=== PATIENT | male | born 1945 | race Caucasian/White ===

== ENCOUNTER 2017-05-26 16:38 | Emergency (ER) | payer OTHER, MEDICARE ==
--- NOTE | 2017-05-26 18:00 | ER Document Report ---
ED Medical Screen (RME) - General Chief Complaint: Fall Stated Complaint: PAIN ALL OVER Time Seen by Provider: 05/26/17 17:42 Notes: This 72-year-old male patient was sent here from the [place] [facility] after he fell in the [place] clinic today. He moved to this area 1 week ago. He had a right total knee 8 years ago, a right total hip on 04/20/2016. He dislocated the hip on and had it revised on 05/25/2016. He has had intermittent pain ever since then. He went to the [place] clinic today to establish himself as a patient and to be evaluated for his ongoing pain and discomfort in the right lower extremity. He fell in the clinic while there so he was sent to the emergency room for further evaluation. - Related Data Allergies/Adverse Reactions: diazepam [From Valium] Allergy (Verified 05/26/17 16:42) peanut Allergy (Verified 05/26/17 16:42) Past Medical History - Social History Chew tobacco use (# tins/day): Yes - FORMER Frequency of alcohol use: Rare Drug Abuse: None Renal/ Medical History: Denies: Hx Peritoneal Dialysis
--- NOTE | 2017-05-26 18:23 | RADIOLOGY REPORT (SQ) ---
EXAM DESCRIPTION: HIP RIGHT AP/LATERAL COMPLETED DATE/TIME: 05/26/2017 6:12 pm REASON FOR STUDY: total hip w/ revision, pain, difficulty walking COMPARISON: None. NUMBER OF VIEWS: Two views. TECHNIQUE: AP pelvis and additional frog-leg view of the right hip. LIMITATIONS: None. FINDINGS: MINERALIZATION: Normal. RIGHT HIP: Total hip arthroplasty hardware appears in expected position. No fracture or dislocation. No worrisome bone lesions. LEFT HIP: Total hip arthroplasty hardware appears in expected position. No fracture or dislocation. No worrisome bone lesions. PUBIS AND ISCHIUM: No fracture. PELVIS: No fracture. SACRUM: No fracture or dislocation. No worrisome bone lesions. LOWER LUMBAR SPINE: No fracture or dislocation. No worrisome bone lesions. No significant disc disea se. SOFT TISSUES: Sacral nerve stimulator device. OTHER: No other significant finding. IMPRESSION: No acute findings. Total hip arthroplasty hardware appears in expected position. TECHNICAL DOCUMENTATION: JOB ID: [id number] [place]-72 2010 [employer]- All Rights Reserved
[2017-05-26] MEDS ORDERED: HYDROCODONE/ACETAMINOPHEN 5-325 MG (6 TAB/ER DISP) PO PRN (19:19)
[2017-05-26] MEDS ORDERED: MORPHINE SULFATE IR 15 MG TABLET PO ONE (19:19)
--- NOTE | 2017-05-26 19:22 | ER Document Report ---
ED General - General Chief Complaint: Fall Stated Complaint: PAIN ALL OVER Time Seen by Provider: 05/26/17 17:42 Notes: Patient is a 72-year-old male with a past medical history of chronic peripheral neuropathy, restless leg syndrome, chronic right lower extremity pain who presents after his right leg "gave out" while he was at the [place] [facility] earlier today. He was referred to the emergency department subsequent to this episode. He did not sustain any trauma during the episode is apparently a nurse at the facility called him and prevented him from hitting the ground directly. He denies any head, neck, hip or knee trauma. He reports that he recently moved the area 2 weeks ago and is having chronic pain in the right lower extremity that is been present for several years but been worse over the last several weeks as apparently he has run out of some of his chronic neuropathic pain medications. He denies anything is new or different about his symptoms today relative to the past. He denies any chest pain, shortness of breath or syncope during today's episode. He describes the pain as a constant, burning, shooting pain that is in the bilateral lower extremities but much worse on the right. He also reports that he is unable to sleep because he cannot keep his right leg from moving during the night. - Related Data Allergies/Adverse Reactions: diazepam [From Valium] Allergy (Verified 05/26/17 16:42) peanut Allergy (Verified 05/26/17 16:42) Past Medical History - General Information source: Patient - Social History Smoking Status: Former Smoker Chew tobacco use (# tins/day): Yes - FORMER Frequency of alcohol use: Rare Drug Abuse: None Lives with: Spouse/Significant other Family History: Reviewed & Not Pertinent Patient has suicidal ideation: No Patient has homicidal ideation: No - Past Medical History Cardiac Medical History: Reports: Hx Atrial Fibrillation, Hx Congestive Heart Failure Denies: Hx Heart Attack, Hx Hypercholesterolemia, Hx Hypertension Pulmonary Medical History: Reports: Hx Bronchitis, Hx Pneumonia Denies: Hx Asthma, Hx COPD, Hx Tuberculosis Neurological Medical History: Denies: Hx Migraine, Hx Seizures Endocrine Medical History: Denies: Hx Diabetes Mellitus Type 1, Hx Diabetes Mellitus Type 2 Renal/ Medical History: Denies: Hx End Stage Renal Disease, Hx Kidney Stones, Hx Peritoneal Dialysis GI Medical History: Reports: Hx Gastroesophageal Reflux Disease, Hx Hiatal Hernia, Hx Ulcer Musculoskeltal Medical History: Reports Hx Arthritis Psychiatric Medical History: Reports: Hx Depression Denies: Hx Attention Deficit Hyperactivity Disorder, Hx Bipolar Disorder, Hx Schizophrenia Past Surgical History: Reports: Hx Cholecystectomy, Hx Nose Surgery, Hx Orthopedic Surgery, Hx Tonsillectomy. Denies: Hx Abdominal Surgery Review of Systems - Review of Systems Notes: Constitutional: Negative for fever. HENT: Negative for sore throat. Eyes: Negative for visual changes. Cardiovascular: Negative for chest pain. Respiratory: Negative for shortness of breath. Gastrointestinal: Negative for abdominal pain, vomiting or diarrhea. Genitourinary: Negative for dysuria. Musculoskeletal: Positive for right lower extremity pain Skin: Negative for rash. Neurological: Negative for headaches, weakness or numbness. 10 point ROS negative except as marked above and in HPI. Physical Exam - Vital signs Vitals: Temp Pulse Resp BP Pulse Ox 98.0 F 73 18 144/75 H 100 05/26/17 16:57 05/26/17 16:57 05/26/17 16:57 05/26/17 16:57 05/26/17 16:57 Interpretation: Hypertensive Notes: PHYSICAL EXAMINATION: GENERAL: Appears uncomfortable but in no acute distress HEAD: Atraumatic, normocephalic. EYES: Pupils equal round and reactive to light, extraocular movements intact, sclera anicteric, conjunctiva are normal. ENT: nares patent, oropharynx clear without exudates. Moist mucous membranes. NECK: Normal range of motion, supple without lymphadenopathy LUNGS: Breath sounds clear to auscultation bilaterally and equal. No wheezes rales or rhonchi. HEART: Regular rate and rhythm without murmurs ABDOMEN: Soft, nontender, normoactive bowel sounds. No guarding, no rebound. No masses appreciated. EXTREMITIES: Normal range of motion, no pitting or edema. No cyanosis. No obvious deformity. Patient is having difficulty controlling the movement of his right lower extremity NEUROLOGICAL: No focal neurological deficits. Moves all extremities spontaneously and on command. PSYCH: Somewhat anxious SKIN: Warm, Dry, normal turgor, no rashes or lesions noted. Course - Re-evaluation Re-evalutation: 05/26/17 19:20 Patient presents with chronic right lower extremity pain with associated restless leg syndrome. Patient is thrashing around in the bed, clearly unable to control the movements of his right lower extremity. He appears to be in obvious discomfort. He is already on gabapentin at a maximal dose and has not resolved his symptoms. He recently moved to the area. [facility] out on him but he did not sustain any injury. An x-ray of the hip was taken for an unclear reason because patient is very clear that he never struck the hip or knee today and was apparently unremarkable. I have agreed with the patient that for a very short duration we will give him a small amount of the medications that he may take exclusively at night and he will need to follow-up with his newly established primary care physician here if he would like to continue with this medication if it is effective for him. I do not suspect any acute life-threatening pathology at this time critical occlusion of a peripheral artery, acute intra- abdominal pathology, abdominal aortic aneurysm, or CVA. At this time will discharge with return precautions and follow-up recommendations. Verbal discharge instructions given a the bedside and opportunity for questions given. Medication warnings reviewed. Patient is in agreement with this plan and has verbalized understanding of return precautions and the need for primary care follow-up in the next 24-72 hours. - Vital Signs Vital signs: Temp Pulse Resp BP Pulse Ox 98.2 F 84 16 147/61 H 97 05/26/17 19:39 05/26/17 19:39 05/26/17 19:39 05/26/17 19:39 05/26/17 19:39 - Diagnostic Test Radiology reviewed: Image reviewed, Reports reviewed Radiology results interpreted by me: 05/26/17 19:45 Right hip x-ray: No acute fracture or dislocation Discharge - Discharge Clinical Impression: Restless leg syndrome, Right leg pain Condition: Good Disposition: HOME, SELF-CARE Additional Instructions: You may take the Milam tablet your sent home with at night only to assist with pain and allow you to sleep secondary to restless leg syndrome. If this medication is effective you may discuss with her primary care doctor about continuation. Return for any concerning symptoms.
[2017-05-26 19:42] VITALS: BP 147/61
== END 2017-05-26 19:42 | disposition home or self-care (01) ==
LOC: ER 16:38
DX: G25.81 Restless legs syndrome (principal); M79.604 Pain in right leg; M79.1 Myalgia; G62.9 Polyneuropathy, unspecified
CPT/HCPCS: 99283

== ENCOUNTER 2018-01-03 16:13 | Emergency (ER) | payer OTHER, MEDICARE ==
--- NOTE | 2018-01-03 17:10 | ER Document Report ---
ED General - General Stated Complaint: SYNCOPE Time Seen by Provider: 01/03/18 17:02 Notes: Patient was brought in by EMS for having passed out in his yard today. He says that he was working on a structure at his house, using his car jennifer and other devices to the level of the structure. He was laying on the ground doing this work for 30-40 minutes. He had finished and got up and felt weak and sweaty and some shortness of breath and after about 6 or 7 minutes, he "collapsed". His was working in the yard and found him laying on the ground. It is extremely hot outside today. Patient denies any chest pains. Denies any nausea or vomiting. Did eat breakfast this morning of some eggs. Patient has history of atrial fibrillation, which has had ablation therapy and has been stable. He has no other significant past history except for neuropathy and restless leg syndrome. He has some pains in the left shoulder area where he fell on that shoulder about 3 times last year. That pain is not different or new today in any way. Patient denies having chest pains. Has not been sick in any way recently such as fever, chills, etc. No history of UTIs. Patient has nearly received a liter of saline administered by EMS on the way here. - Related Data Allergies/Adverse Reactions: diazepam [From Valium] Allergy (Verified 05/26/17 16:42) peanut Allergy (Verified 05/26/17 16:42) Past Medical History - Social History Smoking Status: Unknown if Ever Smoked Family History: Reviewed & Not Pertinent - Past Medical History Cardiac Medical History: Reports: Hx Atrial Fibrillation - Post ablation therapy., Hx Congestive Heart Failure - 10 years ago. Denies: Hx Heart Attack, Hx Hypercholesterolemia, Hx Hypertension Pulmonary Medical History: Reports: Hx Bronchitis, Hx Pneumonia Denies: Hx Asthma, Hx COPD, Hx Tuberculosis Neurological Medical History: Denies: Hx Migraine, Hx Seizures Endocrine Medical History: Denies: Hx Diabetes Mellitus Type 1, Hx Diabetes Mellitus Type 2 Renal/ Medical History: Denies: Hx End Stage Renal Disease, Hx Kidney Stones GI Medical History: Reports: Hx Gastroesophageal Reflux Disease, Hx Hiatal Hernia, Hx Ulcer Musculoskeletal Medical History: Reports Hx Arthritis Psychiatric Medical History: Reports: Hx Depression Denies: Hx Attention Deficit Hyperactivity Disorder, Hx Bipolar Disorder, Hx Schizophrenia Past Surgical History: Reports: Hx Cholecystectomy, Hx Nose Surgery, Hx Orthopedic Surgery, Hx Tonsillectomy. Denies: Hx Abdominal Surgery Review of Systems - Review of Systems Notes: REVIEW OF SYSTEMS: CONSTITUTIONAL : Denies fever. But did have heavy sweats, although it is very hot outside today. EENT: Denies eye, ear, nose or mouth or throat pain or other symptoms. CARDIOVASCULAR: Denies chest pain. RESPIRATORY: Denies cough, chest congestion, but did feel some mild shortness of breath. GASTROINTESTINAL: Denies abdominal pain or nausea, vomiting, or diarrhea. GENITOURINARY: Denies difficulty or painful urinating, urinary frequency, blood in urine. MUSCULOSKELETAL: Denies back or neck pain. Denies joint pain or swelling. SKIN: Denies rash or skin lesions. NEUROLOGICAL: Denies altered mental status. Denies headache. Denies sensory loss or motor deficits. ALL OTHER SYSTEMS REVIEWED AND NEGATIVE. Physical Exam - Vital signs Vitals: Temp Pulse Resp BP Pulse Ox 97.7 F 85 20 116/58 L 97 01/03/18 18:42 01/03/18 18:42 01/03/18 18:42 01/03/18 18:42 01/03/18 18:42 Interpretation: Normal - Notes Notes: PHYSICAL EXAMINATION: GENERAL: Well-appearing, in no acute distress. Vital signs are all essentially normal. Very restless shaking of his legs. HEAD: Atraumatic, normocephalic. EYES: Pupils equal round and reactive to light, extraocular movements intact. ENT: oropharynx clear without exudates. Moist mucous membranes. NECK: Normal range of motion, supple. LUNGS: Breath sounds clear and equal bilaterally. HEART: Regular rate and rhythm without murmurs. ABDOMEN: Soft, nontender. No guarding or rebound. No masses. Mid epigastric abdominal wall hernia which is soft and easily reducible. This hernia is in the scar area from the patient's having had a pericardial window for congestive heart failure 10 years ago. BACK: No tenderness throughout entire back. EXTREMITIES: Normal range of motion without pain. No significant edema. Negative Homans bilaterally. NEUROLOGICAL: Normal speech, normal gait. Normal sensory, motor, and reflex exams. Awake, alert, and oriented x3. Cranial nerves normal. PSYCH: Normal mood, normal affect. Anxious. SKIN: Warm, dry, no rashes. Course - Re-evaluation Re-evalutation: 01/03/18 20:14 Labs are all essentially normal. Patient says he feels fine. Denies any chest pain. No shortness of breath. Very anxious restless legs. I think patient became overheated this afternoon and that is the underlying problem. He looks well and his vital signs were all essentially normal so he can go home. - Vital Signs Vital signs: Temp Pulse Resp BP Pulse Ox 97.7 F 85 20 116/58 L 97 01/03/18 18:42 01/03/18 18:42 01/03/18 18:42 01/03/18 18:42 01/03/18 18:42 - Laboratory Result Diagrams: 01/03/18 17:32 01/03/18 17:32 Laboratory results interpreted by me: 01/03/18 01/03/18 01/03/18 17:32 17:32 17:32 RBC 3.77 L Hgb 12.6 L Hct 36.7 L MCV 98 H MCH 33.5 H Plt Count 143 L Chloride 109 H Carbon Dioxide 21 L BUN 23 H ALT 73 H CK-MB (CK-2) 5.89 H Total Protein 6.1 L Albumin 3.2 L - EKG Interpretation by Md EKG shows normal: Sinus rhythm Rate: Normal Rhythm: NSR [place]/QRS: RBBB Discharge - Discharge Clinical Impression: Syncope and collapse Condition: Stable Disposition: HOME, SELF-CARE Additional Instructions: SYNCOPAL EPISODE: Syncope (fainting or near-fainting) can occur from many different health problems. Or it can be a simple fainting spell requiring no treatment. It is safe for you to go home, but further evaluation will likely be necessary. Your work-up may include tests for internal bleeding, heart disease, medication problems, or near-strokes. Tests are not always required, however, depending on the nature of your problem. The warning signs of an impending faint include: dizziness, lightheadedness , nausea, hot flashes, tingling, and weakness. If this happens, lay down and put your feet up, then wait until all of these symptoms have passed before standing up again. If these episodes become recurrent, or if you develop chest pain, heart palpitations, mental confusion, blurred vision, or headache, then you should call the physician, or go to the emergency room. NORMAL EXAM AND WORKUP: At this time, your examination and workup show no significant abnormality. No significant abnormal physical findings were noted. All laboratory, EKG, and imaging (x-ray, CT scans, ultrasound) studies that were ordered show no significant abnormality. Although your examination and all studies that were ordered showed no significant abnormal finding, there are no examinations and no studies that are 100% accurate. There is always the possibility that some abnormality could exist and not be detected with physical examination or within the limits and capabilities of laboratory and other studies. You should return or follow up as you were instructed on your visit today for further evaluation if your symptoms do not resolve. FOLLOW-UP CARE: If you have been referred to a physician for follow-up care, call the physician s office for an appointment as you were instructed or within the next two days. If you experience worsening or a significant change in your symptoms, notify the physician immediately or return to the Emergency Department at any time for re-evaluation.
[2018-01-03 17:40] LABS: ABSOLUTE BASOPHILS # (AUTO) 0.1 10^3/uL (0.0-0.2); ABSOLUTE EOSINOPHILS # (AUTO) 0.2 10^3/uL (0.0-0.6); ABSOLUTE LYMPHOCYTES (AUTO) 1.3 10^3/uL (0.5-4.7); ABSOLUTE MONOCYTES (AUTO) 0.8 10^3/uL (0.1-1.4); ABSOLUTE NEUT (AUTO) 5.5 10^3/uL (1.7-8.2); BASOPHILS % (AUTO) 0.9 % (0-2); EOSINOPHILS % (AUTO) 2.3 % (0-6); HEMATOCRIT 36.7 % (37.9-51.0); HEMOGLOBIN 12.6 g/dL (13.5-17.0); LYMPHOCYTES % (AUTO) 17.1 % (13-45); MEAN CORPUSCULAR HEMOGLOBIN 33.5 pg (27.0-33.4); MEAN CORPUSCULAR HGB CONC 34.4 g/dL (32.0-36.0); MEAN CORPUSCULAR VOLUME 98 fl (80-97); MONOCYTES % (AUTO) 9.9 % (3-13); PLATELET COUNT 143 10^3/uL (150-450); RED BLOOD COUNT 3.77 10^6/uL (4.35-5.55); RED CELL DISTRIBUTION WIDTH 13.6 % (11.5-14.0); SEGMENTED NEUTROPHILS % (AUTO) 69.8 % (42-78); TOTAL CELLS COUNTED % (AUTO) 100 %; WHITE BLOOD COUNT 7.8 10^3/uL (4.0-10.5)
[2018-01-03 18:08] LABS: CREATINE KINASE MB 5.89 ng/mL (<4.55); TROPONIN I 0.013 ng/mL
[2018-01-03 19:14] LABS: APPEARANCE,URINE CLEAR; BILIRUBIN,URINE NEGATIVE (NEGATIVE); COLOR,URINE YELLOW; GLUCOSE, URINE NEGATIVE (NEGATIVE); KETONES,URINE NEGATIVE (NEGATIVE); LEUKOCYTE ESTERASE,URINE NEGATIVE (NEGATIVE); NITRITE,URINE NEGATIVE (NEGATIVE); PROTEIN,URINE NEGATIVE (NEGATIVE); URINE SPECIFIC GRAVITY 1.023; UROBILINOGEN,URINE NEGATIVE mg/dL (<2.0)
[2018-01-03 19:16] LABS: ALANINE AMINOTRANSFERASE 73 U/L (21-72); ALBUMIN 3.2 g/dL (3.5-5.0); ALKALINE PHOSPHATASE 119 U/L (38-126); ANION GAP 11 (5-19); ASPARTATE AMINO TRANSFERASE 54 U/L (17-59); BILIRUBIN,DIRECT 0.3 mg/dL (0.0-0.4); BILIRUBIN,TOTAL 0.4 mg/dL (0.2-1.3); BLOOD UREA NITROGEN 23 mg/dL (7-20); CALCIUM 9.1 mg/dL (8.4-10.2); CARBON DIOXIDE 21 mmol/L (22-30); CHLORIDE 109 mmol/L (98-107); GLUCOSE 88 mg/dL (75-110); POTASSIUM 4.1 mmol/L (3.6-5.0); SODIUM 140.8 mmol/L (137-145); TOTAL PROTEIN 6.1 g/dL (6.3-8.2)
[2018-01-03 20:02] VITALS: BP 134/68
--- NOTE | 2018-01-03 22:31 | EKG REPORT ---
SEVERITY:- ABNORMAL ECG - SINUS RHYTHM RBBB AND LAFB : Confirmed by: Tiff Morales MD 03-Jan-2018 22:31:04
== END 2018-01-03 20:17 | disposition home or self-care (01) ==
LOC: ER 16:13
DX: R55 Syncope and collapse (principal); R53.1 Weakness; R61 Generalized hyperhidrosis; R06.02 Shortness of breath; M25.512 Pain in left shoulder; K43.9 Ventral hernia without obstruction or gangrene; I48.91 Unspecified atrial fibrillation
CPT/HCPCS: 36415; 80053; 81001; 82553; 84484; 85025; 93005; 93010; 99284

== ENCOUNTER 2018-01-30 17:08 | Emergency (ER) | payer OTHER, MEDICARE ==
--- NOTE | 2018-01-30 18:43 | ER Document Report ---
ED Extremity Problem, Upper - General Chief Complaint: Shoulder Pain Stated Complaint: LEFT SHOULDER PAIN Time Seen by Provider: 01/30/18 17:32 Mode of Arrival: Ambulatory Information source: Patient Notes: 72-year-old male presents to ED for complaint of left shoulder pain for 6-8 months. He states he fell off the bed 3 or 4 times about 6 or 8 months ago. He states he went to the local hospital they x-rayed his shoulder but they said there was nothing wrong. He states he went to the [facility] and they sent him to physical therapy. He states that when he was discharged from physical therapy they told him he needed an orthopedic surgeon not physical therapy. He states he has been trying to get a orthopedic surgeon from [facility] for several months and they do not need to call him back anymore. He states that pain is so bad he cannot even lift up his arm all the way. He states his somebody holds the weight of his arm he can lift it up but he cannot actually pick it up himself. Patient is alert and oriented respirations regular and unlabored speaking in full sentences and is able to walk with a cane. TRAVEL OUTSIDE OF THE [place] IN LAST 30 DAYS: No - HPI Patient complains to provider of: Left, Shoulder Onset: Other - 6-8 months Recent injury: No Quality of pain: Sharp, Stabbing, Throbbing Severity of pain: Moderate Pain Level: 3 Context: Fall - 6-8 months ago Associated symptoms: None Exacerbated by: Movement, Exertion Relieved by: Rest, Positioning Similar symptoms previously: Yes Recently seen / treated by doctor: No - Related Data Allergies/Adverse Reactions: diazepam [From Valium] Allergy (Verified 01/30/18 17:12) peanut Allergy (Verified 01/30/18 17:12) Past Medical History - General Information source: Patient - Social History Smoking Status: Former Smoker Cigarette use (# per day): No Chew tobacco use (# tins/day): No Smoking Education Provided: No Frequency of alcohol use: Occasional Drug Abuse: None Occupation: Retired Lives with: Family Family History: Reviewed & Not Pertinent Patient has suicidal ideation: No Patient has homicidal ideation: No - Past Medical History Cardiac Medical History: Reports: Hx Atrial Fibrillation - Post ablation therapy., Hx Congestive Heart Failure - 10 years ago. Pulmonary Medical History: Reports: Hx Bronchitis, Hx Pneumonia, Hx Sleep Apnea EENT Medical History: Reports: None Neurological Medical History: Reports: Hx Migraine Endocrine Medical History: Reports: None Renal/ Medical History: Reports: None Malignancy Medical History: Reports Hx Prostate Cancer, Reports Hx Skin Cancer GI Medical History: Reports: Hx Gastritis, Hx Gastroesophageal Reflux Disease, Hx Hiatal Hernia, Hx Irritable Bowel, Hx Ulcer, Hx Endoscopy Musculoskeletal Medical History: Reports Hx Arthritis, Reports Hx Musculoskeletal Deformity, Reports Hx Musculoskeletal Trauma Skin Medical History: Reports None Psychiatric Medical History: Reports: Hx Depression Traumatic Medical History: Reports: Hx Fractures - Nose Infectious Medical History: Reports: None Past Surgical History: Reports: Hx Adenoidectomy, Hx Cholecystectomy, Hx Nose Surgery, Hx Orthopedic Surgery - Right knee, right and left hip replacement, shoulder surgery, Hx Rectal Surgery - Hemorrhoid surgery, Hx Tonsillectomy - Immunizations Immunizations up to date: Yes Review of Systems - Review of Systems Constitutional: No symptoms reported EENT: No symptoms reported Cardiovascular: No symptoms reported Respiratory: No symptoms reported Gastrointestinal: No symptoms reported Genitourinary: No symptoms reported Male Genitourinary: No symptoms reported Musculoskeletal: Joint pain, Muscle pain. denies: Joint swelling Skin: No symptoms reported Hematologic/Lymphatic: No symptoms reported Neurological/Psychological: No symptoms reported -: Yes All other systems reviewed and negative Physical Exam - Vital signs Vitals: Temp Pulse Resp BP Pulse Ox 97.8 F 79 18 117/64 96 01/30/18 17:25 01/30/18 17:25 01/30/18 17:25 01/30/18 17:25 01/30/18 17:25 Interpretation: Normal - General General appearance: Appears well, Alert - HEENT Head: Normocephalic, Atraumatic Eyes: Normal Pupils: PERRL - Respiratory Respiratory status: No respiratory distress Chest status: Nontender Breath sounds: Normal Chest palpation: Normal - Cardiovascular Rhythm: Regular Heart sounds: Normal auscultation Murmur: No - Abdominal Inspection: Normal Distension: No distension Bowel sounds: Normal Tenderness: Nontender Organomegaly: No organomegaly - Back Back: Normal, Nontender - Extremities General upper extremity: Normal color, Normal temperature General lower extremity: Normal inspection, Nontender, Normal color, Normal ROM , Normal temperature, Normal weight bearing. No: Tomas's sign Shoulder: Tender, Limited ROM. No: Abrasion, Deformity, Dislocation, Ecchymosis , Instability, Laceration - Neurological Neuro grossly intact: Yes Cognition: Normal Orientation: AAOx4 [place] Coma Scale Eye Opening: Spontaneous [place] Coma Scale Verbal: Oriented [place] Coma Scale Motor: Obeys Commands [place] Coma Scale Total: 15 Speech: Normal Motor strength normal: LUE, RUE, LLE, RLE Sensory: Normal - Psychological Associated symptoms: Normal affect, Normal mood - Skin Skin Temperature: Warm Skin Moisture: Dry Skin Color: Normal Course - Re-evaluation Re-evalutation: 01/30/18 21:46 Kendra x-ray with patient and written report of x-ray given the patient. Patient was discharged home with instructions to follow-up with orthopedics by telephone tomorrow to schedule appointment. [facility] Patient was discharged home with prescription for ibuprofen for his tendinitis. - Vital Signs Vital signs: Temp Pulse Resp BP Pulse Ox 97.9 F 81 16 129/71 H 100 01/30/18 19:33 01/30/18 19:33 01/30/18 19:33 01/30/18 19:33 01/30/18 19:33 - Diagnostic Test Radiology reviewed: Image reviewed, Reports reviewed Discharge - Discharge Clinical Impression: Tendonitis of shoulder, left Condition: Stable Disposition: HOME, SELF-CARE Additional Instructions: Tendonitis The pain you are having is due to tendonitis -- an inflammation around a muscle tendon. It's usually caused by overuse or repeated minor injuries ( strains) of the tendon. Tendonitis can take two to four weeks to heal. In fact, you may actually worsen for a few days despite treatment. Tendonitis is usually treated with rest, local heat, and antiinflammatory medication. Sometimes cold packs are recommended if the tendonitis has just started. If the pain is severe or prolonged, cortisone injections may be required. Call the doctor if pain or swelling become severe, if new discoloration or redness appears, or if numbness is noted. Anti-Inflammatory Medication You have received a prescription for an antiinflammatory agent. This is an excellent, safe drug for pain control. In addition, it has potent antiinflammatory effects which are beneficial, especially in the treatment of injuries, arthritis, or tendonitis. It's best to take this medicine with food. Persons with ulcer disease or allergy to aspirin should notify their physician of this before taking this drug. Take the medication exactly as prescribed. Don't take additional doses unless instructed to do so by your doctor. If you develop wheezing, shortness of breath, hives, faintness, stomach pain, vomiting, or dark black stools, return for re-evaluation at once. Exercise Program for the Shoulder Since the shoulder moves in so many directions, the joint attachment is weak. Muscles provide most of the stability to the shoulder. You must exercise your shoulder to prevent painful instability or stiffening. PASSIVE - These may be begun within a few days of the injury. While standing, lean forward, allowing the arm to hang down towards the floor. Move the arm in small circles while slowly twisting your chest towards and away from the hanging arm. Do this for one minute. ACTIVE - These may be performed when the doctor gives permission. Begin with the arms at the sides. Raise the arms forward (shoulder's width apart) until they reach shoulder level. Then slowly swing both arms back until they are aiming straight out away from each other. Then bring them forward again, and finally, lower them to your sides. Repeat 20 to 30 times. As you improve, put weights in your hands for the exercise. Start with one pound, and work up to 10 pounds. Never use more than is comfortable. Athletes may work up to 30 pounds. FOLLOW-UP CARE: If you have been referred to a physician for follow-up care, call the physician s office for an appointment as you were instructed or within the next two days. If you experience worsening or a significant change in your symptoms, notify the physician immediately or return to the Emergency Department at any time for re-evaluation. Prescriptions: Ibuprofen 600 mg PO Q6HP PRN #20 tablet PRN Reason: Referrals: ELIZABETH SKINNER MD [ACTIVE STAFF] - Follow up as needed
--- NOTE | 2018-01-30 19:05 | RADIOLOGY REPORT (SQ) ---
EXAM DESCRIPTION: SHOULDER LEFT 2 OR MORE VIEWS COMPLETED DATE/TIME: 01/30/2018 5:43 pm REASON FOR STUDY: fall pain COMPARISON: None. NUMBER OF VIEWS: Three views. TECHNIQUE: Internal rotation, external rotation, and Y view images acquired of the left shoulder. LIMITATIONS: None. FINDINGS: MINERALIZATION: Normal. BONES: No acute fracture or dislocation. No worrisome bone lesions. JOINTS: No dislocation. VISUALIZED LUNGS AND RIBS: No pneumothorax. No rib fracture. SOFT TISSUES: No radiopaque foreign body. OTHER: No other significant finding. IMPRESSION: NEGATIVE STUDY OF THE LEFT SHOULDER. NO RADIOGRAPHIC EVIDENCE OF ACUTE INJURY. TECHNICAL DOCUMENTATION: JOB ID: [id number] [employer]- All Rights Reserved Reading location - IP/workstation name: [email or web address]
[2018-01-30 19:35] VITALS: BP 129/71
== END 2018-01-30 19:33 | disposition home or self-care (01) ==
LOC: ER 17:08
DX: M75.92 Shoulder lesion, unspecified, left shoulder (principal); M25.512 Pain in left shoulder; W06.XXXA Fall from bed, initial encounter; Z87.891 Personal history of nicotine dependence
CPT/HCPCS: 99283

== ENCOUNTER → 2018-04-05 | Outpatient (CLI) | payer MEDICARE ==
--- NOTE | 2018-04-05 08:56 | RADIOLOGY REPORT (SQ) ---
EXAM DESCRIPTION: CT CHEST WITH COMPLETED DATE/TIME: 04/05/2018 8:43 am REASON FOR STUDY: CHEST PAIN (R07.9), CIRRHOSIS OF LIVER (K74.60) K74.60 UNSPECIFIED CIRRHOSIS OF L IVER R07.9 CHEST PAIN, UNSPECIFIED COMPARISON: None. TECHNIQUE: CT scan of the chest performed using helical scanning technique with dynamic intravenous contrast injection. Images reviewed with lung, soft tissue and bone windows. Reconstructed coronal and sagittal MPR and MIP images reviewed. All images stored on PACS. All CT scanners at this facility use dose modulation, iterative reconstruction, and/or weight based d osing when appropriate to reduce radiation dose to as low as reasonably achievable (ALARA). [facility]: Dose Right [facility]: CareDose [facility]: Dose Right [facility]: Teradose 4D [facility]: [employer] CONTRAST TYPE AND DOSE: 72 mL Isovue 370- low osmolar. RENAL FUNCTION: BUN 16, creatinine 0.86 RADIATION DOSE: . LIMITATIONS: None. FINDINGS: LUNGS AND PLEURA: Mild bilateral emphysematous changes. No consolidation. No effusions. No suspicious pulmonary nodules. There is some scarring in the right middle lobe anteriorly. HILAR AND MEDIASTINAL STRUCTURES: No identified masses or abnormal nodes. HEART AND VASCULAR STRUCTURES: No aneurysm or dissection. No central pulmonary emboli. No pericardi al effusion. HARDWARE: None in the chest. UPPER ABDOMEN: No significant findings. Limited exam. THYROID AND OTHER SOFT TISSUES: No masses. No adenopathy. BONES: No significant finding. OTHER: No other significant finding. IMPRESSION: Mild bilateral emphysematous changes. No acute findings in the chest. TECHNICAL DOCUMENTATION: JOB ID: [id number] Quality ID # [id number]: Final reports with documentation of one or more dose reduction techniques (e.g., Au tomated exposure control, adjustment of the mA and/or kV according to patient size, use of iterative reconstruction technique) 2010 [employer]- All Rights Reserved Reading location - IP/workstation name: [email or web address]
--- NOTE | 2018-04-05 08:59 | RADIOLOGY REPORT (SQ) ---
EXAM DESCRIPTION: CT ABD/PELVIS WITH IV ORAL COMPLETED DATE/TIME: 04/05/2018 8:43 am REASON FOR STUDY: CIRRHOSIS OF LIVER (K74.60) K74.60 UNSPECIFIED CIRRHOSIS OF LIVER R07.9 CHEST PA IN, UNSPECIFIED COMPARISON: None. TECHNIQUE: CT scan of the abdomen and pelvis performed using helical scanning technique with dynamic intravenous contrast injection. No oral contrast. Images reviewed with lung, soft tissue, and bone windows. Reconstructed coronal and sagittal MPR images reviewed. Delayed images for evaluation of the urinary system also acquired. All images stored on PACS. All CT scanners at this facility use dose modulation, iterative reconstruction, and/or weight based d osing when appropriate to reduce radiation dose to as low as reasonably achievable (ALARA). [facility]: Dose Right [facility]: CareDose [facility]: Dose Right [facility]: Teradose 4D [facility]: [employer] CONTRAST TYPE AND DOSE: contrast/concentration: Isovue 350.00 mg/ml; Total Contrast Delivered: 100.0 ml; Total Saline Delivered: 72.0 ml RENAL FUNCTION: BUN 16, creatinine 0.86 RADIATION DOSE: CT Rad equipment meets quality standard of care and radiation dose reduction techniq ues were employed. CTDIvol: 22.8 - 29.6 mGy. DLP: 4298 mGy-cm.. LIMITATIONS: None. FINDINGS: LOWER CHEST: No significant findings. No nodules or infiltrates. LIVER: Normal size. No masses. No dilated ducts. SPLEEN: Normal size. No focal lesions. PANCREAS: No masses. No significant calcifications. No adjacent inflammation or peripancreatic fluid collections. Pancreatic duct not dilated. GALLBLADDER: Surgically absent. ADRENAL GLANDS: No significant masses or asymmetry. RIGHT KIDNEY AND URETER: No solid masses. No significant calcifications. No hydronephrosis or hyd roureter. LEFT KIDNEY AND URETER: No solid masses. No significant calcifications. No hydronephrosis or hydr oureter. AORTA AND VESSELS: No aneurysm. No dissection. Renal arteries, SMA, celiac without stenosis. RETROPERITONEUM: No retroperitoneal adenopathy, hemorrhage or masses. BOWEL AND PERITONEAL CAVITY: There are infrequent diverticuli. No acute findings. APPENDIX: Not visualized. PELVIS: No mass. No free fluid. Normal bladder. ABDOMINAL WALL: No masses. No hernias. BONES: No significant or acute findings. OTHER: No other significant finding. IMPRESSION: NO SIGNIFICANT OR ACUTE FINDING IN THE ABDOMEN OR PELVIS ON CT SCAN WITH IV CONTRAST. TECHNICAL DOCUMENTATION: JOB ID: [id number] Quality ID # [id number]: Final reports with documentation of one or more dose reduction techniques (e.g., Au tomated exposure control, adjustment of the mA and/or kV according to patient size, use of iterative reconstruction technique) 2010 [employer]- All Rights Reserved Reading location - IP/workstation name: [email or web address]
== END ==
LOC: RAD 07:58
PROVIDERS: ATTEND Internal Medicine
DX: K74.60 Unspecified cirrhosis of liver (principal); R07.9 Chest pain, unspecified
CPT/HCPCS: 71260; 74177

== ENCOUNTER 2018-05-07 11:28 | Emergency (ER) | payer MEDICARE ==
[2018-05-07] MEDS ORDERED: LIDOCAINE 5% (700 MG) TRANSDERMAL ADH..PATCH TP ONE (12:52)
[2018-05-07] MEDS ORDERED: TRAMADOL HCL 50 MG TABLET PO ONE (12:52)
[2018-05-07] MEDS ORDERED: HYDROCODONE/ACETAMINOPHEN 5-325 MG TABLET PO ONE (12:55)
--- NOTE | 2018-05-07 13:43 | RADIOLOGY REPORT (SQ) ---
EXAM DESCRIPTION: FEMUR RIGHT COMPLETED DATE/TIME: 05/07/2018 1:29 pm REASON FOR STUDY: pain COMPARISON: None. NUMBER OF VIEWS: Two views. TECHNIQUE: Two radiographic images acquired of the right femur to include hip and knee in at least o ne projection. LIMITATIONS: None. FINDINGS: MINERALIZATION: Normal. BONES: No acute fracture. No worrisome bone lesions. Total knee replacement. Total hip replacement . SOFT TISSUES: No obvious swelling or foreign body. OTHER: No other significant finding. IMPRESSION: Orthopedic hardware. No suspicious findings. TECHNICAL DOCUMENTATION: JOB ID: [id number] [employer]- All Rights Reserved Reading location - IP/workstation name: [email or web address]
[2018-05-07 13:53] LABS: ANION GAP 12 (5-19); BLOOD UREA NITROGEN 18 mg/dL (7-20); CALCIUM 9.6 mg/dL (8.4-10.2); CARBON DIOXIDE 24 mmol/L (22-30); CHLORIDE 106 mmol/L (98-107); CREATINE KINASE 128 U/L (55-170); GLUCOSE 105 mg/dL (75-110); POTASSIUM 4.2 mmol/L (3.6-5.0); SODIUM 142.1 mmol/L (137-145)
--- NOTE | 2018-05-07 14:15 | ER Document Report ---
ED General - General Chief Complaint: Leg Pain Stated Complaint: LEG PAIN Time Seen by Provider: 05/07/18 12:45 TRAVEL OUTSIDE OF THE [place] IN LAST 30 DAYS: No - HPI Patient complains to provider of: Movement of the leg tremor Notes: Patient coming in for exacerbation of his restless leg. Patient states while at buddhism she developed the pain in his right thigh states whenever this happens his restless leg exacerbates. Patient upon my initial evaluation is noted movement of his legs and there however upon introducing myself patient starts to have a tremor rocking motion [id number] of his leg. Patient states that this is different than his restless leg before and that his restless leg mostly has his leg moving up and down in a north-south fashion which the patient is able to demonstrate however states that today is different with the leg moving in a East less fashion with the patient again also is able to demonstrate. Tremor seems to be waxing and waning is that when the patient is able to talk to his the tremor will dissipate. Patient otherwise denies any recent falls states has a history of hip and knee replacement. Patient states he has been compliant with his Neurontin and his medication for restless leg which cannot remember at this time. Patient otherwise looks to be in no obvious distress patient states this occurs whenever he has pain in his leg - Related Data Allergies/Adverse Reactions: diazepam [From Valium] Allergy (Verified 01/30/18 17:12) peanut Allergy (Verified 01/30/18 17:12) Past Medical History - Social History Smoking Status: Never Smoker Frequency of alcohol use: Rare Drug Abuse: None Family History: Reviewed & Not Pertinent Patient has suicidal ideation: No Patient has homicidal ideation: No - Past Medical History Cardiac Medical History: Reports: Hx Atrial Fibrillation - Post ablation therapy., Hx Congestive Heart Failure - 10 years ago. Denies: Hx Heart Attack, Hx Hypercholesterolemia, Hx Hypertension Pulmonary Medical History: Reports: Hx Bronchitis, Hx Pneumonia, Hx Sleep Apnea Denies: Hx Asthma, Hx COPD, Hx Tuberculosis Neurological Medical History: Reports: Hx Migraine. Denies: Hx Seizures Endocrine Medical History: Denies: Hx Diabetes Mellitus Type 1, Hx Diabetes Mellitus Type 2 Renal/ Medical History: Denies: Hx End Stage Renal Disease, Hx Kidney Stones, Hx Peritoneal Dialysis Malignancy Medical History: Reports Hx Prostate Cancer, Reports Hx Skin Cancer GI Medical History: Reports: Hx Gastritis, Hx Gastroesophageal Reflux Disease, Hx Hiatal Hernia, Hx Irritable Bowel, Hx Ulcer, Hx Endoscopy Musculoskeletal Medical History: Reports Hx Arthritis, Reports Hx Musculoskeletal Deformity, Reports Hx Musculoskeletal Trauma Psychiatric Medical History: Reports: Hx Depression Denies: Hx Attention Deficit Hyperactivity Disorder, Hx Bipolar Disorder, Hx Schizophrenia Traumatic Medical History: Reports: Hx Fractures - Nose Past Surgical History: Reports: Hx Adenoidectomy, Hx Cholecystectomy, Hx Nose Surgery, Hx Orthopedic Surgery - Right knee, right and left hip replacement, shoulder surgery, Hx Rectal Surgery - Hemorrhoid surgery, Hx Tonsillectomy. Denies: Hx Abdominal Surgery - Immunizations Immunizations up to date: Yes Review of Systems - Review of Systems Constitutional: No symptoms reported EENT: No symptoms reported Cardiovascular: No symptoms reported Respiratory: No symptoms reported Gastrointestinal: No symptoms reported Genitourinary: No symptoms reported Male Genitourinary: No symptoms reported Musculoskeletal: Other - Pain in leg tremor Skin: No symptoms reported Hematologic/Lymphatic: No symptoms reported Neurological/Psychological: No symptoms reported Physical Exam - Vital signs Vitals: Temp Pulse Resp BP Pulse Ox 97.7 F 67 18 141/69 H 98 05/07/18 11:36 05/07/18 11:36 05/07/18 11:36 05/07/18 11:36 05/07/18 11:36 Interpretation: Normal - General General appearance: Appears well, Alert - HEENT Head: Normocephalic, Atraumatic Eyes: Normal Pupils: PERRL - Respiratory Respiratory status: No respiratory distress Chest status: Nontender Breath sounds: Normal Chest palpation: Normal - Cardiovascular Rhythm: Regular Heart sounds: Normal auscultation Murmur: No - Abdominal Inspection: Normal Distension: No distension Bowel sounds: Normal Tenderness: Nontender Organomegaly: No organomegaly - Back Back: Normal, Nontender - Extremities General upper extremity: Normal inspection, Nontender, Normal color, Normal ROM , Normal temperature General lower extremity: Normal inspection, Nontender, Normal color, Normal ROM , Normal temperature, Other - Patient with a oscillating tremor and the right leg strength is present and there is no weakness tremor seems to dissipate whenever the patient is otherwise occupied with other activities such as talking to myself or with the patient is seen while waiting at their initial examination with no tremors leg however upon my presence the tremor again arises - Neurological Neuro grossly intact: Yes Cognition: Normal Orientation: AAOx4 [place] Coma Scale Eye Opening: Spontaneous [place] Coma Scale Verbal: Oriented [place] Coma Scale Motor: Obeys Commands [place] Coma Scale Total: 15 Speech: Normal Motor strength normal: LUE, RUE, LLE, RLE Sensory: Normal - Psychological Associated symptoms: Normal affect, Normal mood - Skin Skin Temperature: Warm Skin Moisture: Dry Skin Color: Normal Course - Re-evaluation Re-evalutation: 05/07/18 19:16 Waxing or waning of a tremor the patient states is chronic no acute emergent pathology seen at this time patient's tremor had dissipated upon discharge and sitting in the chair and pit while getting his vital signs taken x-rays are negative for any acute pathology lab work is also negative will discharge patient home follow-up primary care physician recommended continuation of his home medications - Vital Signs Vital signs: Temp Pulse Resp BP Pulse Ox 97.6 F 61 18 146/68 H 99 05/07/18 14:32 05/07/18 14:32 05/07/18 14:32 05/07/18 14:32 05/07/18 14:32 - Laboratory Result Diagrams: 05/07/18 13:15 Discharge - Discharge Clinical Impression: History of restless legs syndrome, Right thigh pain Condition: Good Disposition: HOME, SELF-CARE Instructions: Leg Pain Nonspecific ([facility]) Additional Instructions: Follow-up with your primary care physician in the next 24-48 hours return to ER symptoms worsen continue your home medications as prescribed. Referrals: SHABNAM RICO MD [Primary Care Provider] - Follow up as needed
[2018-05-07 14:34] VITALS: BP 146/68
== END 2018-05-07 14:37 | disposition home or self-care (01) ==
LOC: ER 11:28
DX: M79.651 Pain in right thigh (principal); M79.604 Pain in right leg; G25.81 Restless legs syndrome
CPT/HCPCS: 99283; 36415; 82550; 83735; 80048; 73552; A9270

== ENCOUNTER 2018-06-02 16:36 | Emergency (ER) | payer MEDICARE ==
[2018-06-02] MEDS ORDERED: ACETAMINOPHEN 325 MG TABLET PO ONE (19:15)
[2018-06-02] MEDS ORDERED: HYDROCODONE/ACETAMINOPHEN 5-325 MG TABLET PO ONE (19:15)
--- NOTE | 2018-06-02 19:19 | ER Document Report ---
ED General - General TRAVEL OUTSIDE OF THE [place] IN LAST 30 DAYS: No - General Chief Complaint: Knee Pain Stated Complaint: RIGHT KNEE PAIN Time Seen by Provider: 06/02/18 19:06 Notes: Patient is a 73-year-old male who presents to the emergency department with a chief complaint of right knee pain. He states his pain started 2 days ago. He describes his pain as a throbbing pain. Most of the pain is on the lateral aspect of his knee. He vigorously moves his knee up and down and he feels a "popping" sensation. He has a history of a right knee replacement 12 years ago and had a left hip replacement 2 years ago. He has been taking ibuprofen for his pain, but has not taken any today. He states nothing makes his pain better. Walking around and even just sitting still aggravates the pain. He also has history of restless leg, in which he takes Mirapex for his restless leg control. He also has neuropathy, and takes gabapentin. He denies any fevers, chills, body aches. (GARY SCHNEIDER) - Related Data Allergies/Adverse Reactions: diazepam [From Valium] Allergy (Verified 01/30/18 17:12) peanut Allergy (Verified 01/30/18 17:12) Past Medical History - Social History Smoking Status: Former Smoker Family History: Reviewed & Not Pertinent Patient has suicidal ideation: No Patient has homicidal ideation: No - Past Medical History Cardiac Medical History: Reports: Hx Atrial Fibrillation - Post ablation therapy., Hx Congestive Heart Failure - 10 years ago. Denies: Hx Heart Attack, Hx Hypercholesterolemia, Hx Hypertension Pulmonary Medical History: Reports: Hx Bronchitis, Hx Pneumonia, Hx Sleep Apnea Denies: Hx Asthma, Hx COPD, Hx Tuberculosis Neurological Medical History: Reports: Hx Migraine. Denies: Hx Seizures Endocrine Medical History: Denies: Hx Diabetes Mellitus Type 1, Hx Diabetes Mellitus Type 2 Renal/ Medical History: Denies: Hx End Stage Renal Disease, Hx Kidney Stones, Hx Peritoneal Dialysis Malignancy Medical History: Reports Hx Prostate Cancer, Reports Hx Skin Cancer GI Medical History: Reports: Hx Gastritis, Hx Gastroesophageal Reflux Disease, Hx Hiatal Hernia, Hx Irritable Bowel, Hx Ulcer, Hx Endoscopy Musculoskeletal Medical History: Reports Hx Arthritis, Reports Hx Musculoskeletal Deformity, Reports Hx Musculoskeletal Trauma Psychiatric Medical History: Reports: Hx Depression Denies: Hx Attention Deficit Hyperactivity Disorder, Hx Bipolar Disorder, Hx Schizophrenia Traumatic Medical History: Reports: Hx Fractures - Nose Past Surgical History: Reports: Hx Adenoidectomy, Hx Cholecystectomy, Hx Genitourinary Surgery - bladder stimulater placement, Hx Nose Surgery, Hx Orthopedic Surgery - Right knee, right and left hip replacement, shoulder corral rgery, Hx Rectal Surgery - Hemorrhoid surgery, Hx Tonsillectomy. Denies: Hx Abdominal Surgery - Immunizations Immunizations up to date: Yes Review of Systems - Review of Systems Notes: REVIEW OF SYSTEMS: CONSTITUTIONAL : Denies recent illness. Denies recent unintentional weight loss. Denies fever, chills, or sweats. EENT: Denies eye, ear, throat, or mouth pain, discharge, or symptoms. Denies nasal or sinus congestion. CARDIOVASCULAR: Denies chest pain. RESPIRATORY: Denies shortness of breath, cough, congestion, difficulty breathing, or wheezing. GASTROINTESTINAL: Denies nausea, vomiting, and diarrhea. Denies abdominal pain. Denies constipation. GENITOURINARY: Denies difficulty urinating, burning, blood in urine, urgency or frequency. MUSCULOSKELETAL: See HPI SKIN: Denies rash, itchiness, or lesions HEMATOLOGIC : Denies easy bruising or bleeding. LYMPHATIC: Denies swollen, painful, enlarged glands. NEUROLOGICAL: Denies no numbness or tingling denies weakness. Denies headache. Denies altered mental status. Denies alteration in speech. PSYCHIATRIC: Denies stress, anxiety, alteration in sleep patterns, or depression. All other systems reviewed and negative. (GARY SCHNEIDER) Physical Exam - Vital signs Vitals: Temp Pulse Resp BP Pulse Ox 97.8 F 85 18 126/74 H 96 06/02/18 16:51 06/02/18 16:51 06/02/18 16:51 06/02/18 16:51 06/02/18 16:51 - Notes Notes: PHYSICAL EXAMINATION: GENERAL: Appears well, healthy, well-nourished, no acute distress. HEAD: Normocephalic, atraumatic. EYES: PERRL, conjunctiva normal, all extraocular movements intact, sclera nonicteric ENT: Moist mucous membranes. NECK: Supple, no noticeable swelling, redness, rash. Normal range of motion. LUNGS: Equal breath sounds bilaterally and clear to auscultation. No wheezes rales or rhonchi. CARDIOVASCULAR: S1-S2, regular rate, regular rhythm. Radial pulses 2+, normal. ABDOMEN: Normoactive bowel sounds. Soft, nontender, no guarding, no rebound tenderness, and no masses palpated. EXTREMITIES: Normal strength and range of motion, no pitting or edema. No cyanosis. Very mild crepitus noted to the lateral aspect of right knee. Scar noted to right knee from right knee replacement. NEUROLOGICAL: Moves all extremities upon command. Strength 5/5 in all extremities. PSYCH: Normal mood, normal affect. SKIN: Warm, dry. No rash, lesions, ulcerations noted. Normal skin turgor. (GARY SCHNEIDER) Course - Re-evaluation Re-evalutation: 06/02/18 19:19 The patient will be sent for an x-ray of his right knee to check his hardware. He is able to bend his knee, therefore I do not suspect he has a septic joint. His knee is not inflamed, red, hot, and he denies fevers. He will be given acetaminophen and a dose of [place] here in the emergency department. 06/02/18 20:00 Patient's x-ray is normal. No acute findings per the radiologist. I have discussed these findings with the patient. He states that he still in pain even after receiving a dose of [place] and Tylenol. I told the patient that he needs to be evaluated by an orthopedic surgeon since he has history of a right knee replacement 12 years ago. I have also told him that I do not want to prescribe him any oral narcotics because he is already a high fall risk and oral narcotics will increase his fall risk and there is a possibility that he may have a worse outcome with narcotics since he already has chronic health conditions. He nhi balized understanding. He will be placed on naproxen and follow-up with orthopedics on Tuesday. His is also at bedside and verbalizes understanding. Verbal discharge instructions were given to the patient. They verbalized understanding. They are stable for discharge. Documentation was completed using voice recognition software, therefore there may be some unintended grammatical errors. (GARY SCHNEIDER) 06/03/18 23:35 I was personally available for consultation during this patient's worse. I did not personally evaluate the patient. (KENNETH FARRELL) - Vital Signs Vital signs: Temp Pulse Resp BP Pulse Ox 98.0 F 80 20 158/70 H 96 06/02/18 20:48 06/02/18 20:48 06/02/18 20:48 06/02/18 20:48 06/02/18 20:48 Discharge - Discharge Clinical Impression: Knee pain, right Qualifiers: Chronicity: acute Qualified Code(s): M25.561 - Pain in right knee Condition: Stable Disposition: HOME, SELF-CARE Additional Instructions: You were seen today for right knee pain. Your x-ray is normal. Please follow- up with orthopedics tomorrow in regards to your knee pain. They will be able to further evaluate your knee. May take naproxen 500 mg twice a day and Tylenol 1000 mg every 6 hours as needed for the pain. If you are unable to bend your knee, develop a fever, or have any symptoms that are worrisome to you, please return to the emergency department. Prescriptions: RX: Naproxen 500 mg PO BID PRN #20 tablet PRN Reason: Referrals: ELIZABETH SKINNER MD [ACTIVE STAFF] - Follow up tomorrow
--- NOTE | 2018-06-02 19:39 | RADIOLOGY REPORT (SQ) ---
EXAM DESCRIPTION: KNEE RIGHT 4 VIEWS COMPLETED DATE/TIME: 06/02/2018 7:30 pm REASON FOR STUDY: right knee pain; hx of replacement COMPARISON: None. NUMBER OF VIEWS: Four views. TECHNIQUE: AP, lateral, and both oblique radiographic images acquired of the right knee. LIMITATIONS: None. FINDINGS: MINERALIZATION: Normal. BONES: Total knee arthroplasty in good position. No acute fracture. No JOINT: No joint effusion. SOFT TISSUES: No soft tissue swelling. No radio-opaque foreign body. OTHER: No other significant finding. IMPRESSION: NEGATIVE STUDY OF THE RIGHT KNEE. NO RADIOGRAPHIC EVIDENCE OF ACUTE INJURY. TECHNICAL DOCUMENTATION: JOB ID: [id number] [employer]- All Rights Reserved Reading location - IP/workstation name: [email or web address]
[2018-06-02] MEDS ORDERED: LIDOCAINE 5% (700 MG) TRANSDERMAL ADH..PATCH TP ONE (20:37)
[2018-06-02] MEDS ORDERED: NAPROXEN 250 MG TABLET PO ONE (20:38)
[2018-06-02 20:53] VITALS: BP 158/70
== END 2018-06-02 20:55 | disposition home or self-care (01) ==
LOC: ER 16:36
DX: M25.561 Pain in right knee (principal); Z96.651 Presence of right artificial knee joint; Z96.642 Presence of left artificial hip joint; G62.9 Polyneuropathy, unspecified; G25.81 Restless legs syndrome; Z79.899 Other long term (current) drug therapy; Z88.8 Allergy status to other drugs, medicaments and biological substances; Z91.010 Allergy to peanuts; Z87.891 Personal history of nicotine dependence
CPT/HCPCS: 99283; 73564; A9270 ×3

== ENCOUNTER 2018-06-04 11:01 | Emergency (ER) | payer MEDICARE ==
[2018-06-04] MEDS ORDERED: PRAMIPEXOLE DI-HCL 0.25 MG TABLET PO ONE (11:24)
[2018-06-04] MEDS ORDERED: OXYCODONE-ACETAMINOPHEN 5-325 MG TABLET PO ONE (11:26)
[2018-06-04] MEDS ORDERED: GABAPENTIN 300 MG CAPSULE PO ONE (11:26)
--- NOTE | 2018-06-04 11:27 | ER Document Report ---
ED Medical Screen (RME) - General Chief Complaint: Leg Pain Stated Complaint: RIGHT LEG PAIN/FALL Time Seen by Provider: 06/04/18 11:13 TRAVEL OUTSIDE OF THE [place] IN LAST 30 DAYS: No - Related Data Allergies/Adverse Reactions: diazepam [From Valium] Allergy (Verified 06/04/18 11:02) peanut Allergy (Verified 06/04/18 11:02) Past Medical History - Past Medical History Cardiac Medical History: Reports: Hx Atrial Fibrillation - Post ablation therapy., Hx Congestive Heart Failure - 10 years ago. Denies: Hx Heart Attack, Hx Hypercholesterolemia, Hx Hypertension Pulmonary Medical History: Reports: Hx Bronchitis, Hx Pneumonia, Hx Sleep Apnea Denies: Hx Asthma, Hx COPD, Hx Tuberculosis Neurological Medical History: Reports: Hx Migraine. Denies: Hx Seizures Endocrine Medical History: Denies: Hx Diabetes Mellitus Type 1, Hx Diabetes Mellitus Type 2 Renal/ Medical History: Denies: Hx End Stage Renal Disease, Hx Kidney Stones, Hx Peritoneal Dialysis Malignancy Medical History: Reports Hx Prostate Cancer, Reports Hx Skin Cancer GI Medical History: Reports: Hx Gastritis, Hx Gastroesophageal Reflux Disease, Hx Hiatal Hernia, Hx Irritable Bowel, Hx Ulcer, Hx Endoscopy Musculoskeltal Medical History: Reports Hx Arthritis, Reports Hx Musculoskeletal Deformity, Reports Hx Musculoskeletal Trauma Psychiatric Medical History: Reports: Hx Depression Denies: Hx Attention Deficit Hyperactivity Disorder, Hx Bipolar Disorder, Hx Schizophrenia Traumatic Medical History: Reports: Hx Fractures - Nose Past Surgical History: Reports: Hx Adenoidectomy, Hx Cholecystectomy, Hx Genitourinary Surgery - bladder stimulater placement, Hx Nose Surgery, Hx Orthopedic Surgery - Right knee, right and left hip replacement, shoulder surgery, Hx Rectal Surgery - Hemorrhoid surgery, Hx Tonsillectomy. Denies: Hx Abdominal Surgery - Immunizations Immunizations up to date: Yes Physical Exam - Vital signs Vitals: Temp Pulse Resp BP Pulse Ox 97.4 F 81 18 192/86 H 94 06/04/18 11:05 06/04/18 11:05 06/04/18 11:05 06/04/18 11:05 06/04/18 11:05 Course - Re-evaluation Re-evalutation: 06/04/18 11:26 73-year-old man with knee replacement as well as a hip replacement along the right side he has had chronic pain along the side now has had 3 falls since last night associated with pain and instability in the right knee. Says that he slept on the ground last night because of the pain and inability to walk normally. I have seen and evaluated this patient in rapid medical screening exam fashion. I have initiated a evaluation and workup, this patient will require further investigation evaluation and disposition determination by secondary provider. - Vital Signs Vital signs: Temp Pulse Resp BP Pulse Ox 97.4 F 81 18 192/86 H 94 06/04/18 11:05 06/04/18 11:05 06/04/18 11:05 06/04/18 11:05 06/04/18 11:05
[2018-06-04 12:09] LABS: ANION GAP 7 (5-19); BLOOD UREA NITROGEN 21 mg/dL (7-20); CALCIUM 9.8 mg/dL (8.4-10.2); CARBON DIOXIDE 23 mmol/L (22-30); CHLORIDE 109 mmol/L (98-107); CREATINE KINASE 772 U/L (55-170); GLUCOSE 105 mg/dL (75-110); POTASSIUM 4.5 mmol/L (3.6-5.0); SODIUM 139.4 mmol/L (137-145)
--- NOTE | 2018-06-04 12:19 | RADIOLOGY REPORT (SQ) ---
EXAM DESCRIPTION: CT LUMBAR SPINE WITHOUT COMPLETED DATE/TIME: 06/04/2018 12:03 pm REASON FOR STUDY: Right leg weakness COMPARISON: None. TECHNIQUE: Axial images acquired through the lumbar spine without intravenous contrast. Images revi ewed with lung, soft tissue and bone windows. Reconstructed coronal and sagittal MPR images reviewed . All images stored on PACS. All CT scanners at this facility use dose modulation, iterative reconstruction, and/or weight based d osing when appropriate to reduce radiation dose to as low as reasonably achievable (ALARA). [facility]: Dose Right [facility]: CareDose [facility]: Dose Right [facility]: Teradose 4D [facility]: [employer] RADIATION DOSE: 1754 mGy cm LIMITATIONS: None. FINDINGS: SEGMENTATION: Normal. No transitional anatomy. ALIGNMENT: Normal. VERTEBRAL BODIES: No fractures. No dislocation. No acute findings. DISCS: Severe multilevel disc degenerative disease. PEDICLES, TRANSVERSE PROCESSES: No fractures. No dislocation. No acute findings. FACETS, POSTERIOR ELEMENTS: Severe facet hypertrophy. No fractures. No dislocation. HARDWARE: None in the spine. VISUALIZED RIBS: No fractures. SOFT TISSUES: No significant or acute finding in adjacent soft tissues. OTHER: No other significant finding. IMPRESSION: No fracture or static subluxation of the lumbar spine. Multilevel disc and facet degene rative disease. Lumbar disc and neural foraminal pathology may be further evaluated by MRI if [place] by localizing signs and symptoms. TECHNICAL DOCUMENTATION: JOB ID: [id number] Quality ID # [id number]: Final reports with documentation of one or more dose reduction techniques (e.g., Au tomated exposure control, adjustment of the mA and/or kV according to patient size, use of iterative reconstruction technique) 2010 [employer]- All Rights Reserved Reading location - IP/workstation name: [email or web address]
--- NOTE | 2018-06-04 12:22 | RADIOLOGY REPORT (SQ) ---
EXAM DESCRIPTION: KNEE RIGHT 2 VIEWS COMPLETED DATE/TIME: 06/04/2018 12:10 pm REASON FOR STUDY: knee pain COMPARISON: 06/02/2018 NUMBER OF VIEWS: Two views. TECHNIQUE: AP and lateral radiographic images acquired of the right knee. LIMITATIONS: None. FINDINGS: MINERALIZATION: Normal. BONES: No acute fracture or dislocation. No worrisome bone lesions. JOINT: No effusion. Status post total knee arthroplasty. SOFT TISSUES: No soft tissue swelling. No radio-opaque foreign body. OTHER: No other significant finding. IMPRESSION: NEGATIVE STUDY OF THE RIGHT KNEE. NO RADIOGRAPHIC EVIDENCE OF ACUTE INJURY. TECHNICAL DOCUMENTATION: JOB ID: [id number] [employer]- All Rights Reserved Reading location - IP/workstation name: [email or web address]
[2018-06-04] MEDS ORDERED: METHYLPREDNISOLONE ACETATE INJ 80 MG/1 ML VIAL IM ONE (12:50)
[2018-06-04] MEDS ORDERED: KETOROLAC TROMETHAMINE 60 MG/2 ML SDV IM ONE (12:51)
--- NOTE | 2018-06-04 13:59 | ER Document Report ---
ED General - General Chief Complaint: Leg Pain Stated Complaint: RIGHT LEG PAIN/FALL Time Seen by Provider: 06/04/18 11:13 Notes: Patient is a 73-year-old male with history of restless leg syndrome that presents to the emergency department for chief complaint of right thigh pain after frequent falls yesterday. Patient has restless leg syndrome, he has been decreasing his medication to preserve them, because he states he did not have enough money to refill them, he was doing Neurontin 600 mg 3 times daily, as well as ropinirole, and the restless legs have seemingly gotten worse, to the point where he fell 3 times yesterday, he denies striking his head, having loss of consciousness or neck injury. He states he landed on his right shoulder and hip. He has been able to ambulate, but states he is having pain across the anterior aspect of his right thigh. He states his legs just feel very shaky. He currently rates his pain as a 9 out of 10, that he cannot get comfortable because his legs are so restless. He denies having any headache, lightheadedness, dizziness, numbness, tingling, loss of bowel or bladder function, or urinary retention. Past Medical History: Restless leg syndrome, thrombocytopenia, prostate cancer status post treatment in remission Past Surgical History: Right total knee arthroplasty, bilateral total hip arthroplasty Social History: Denies current tobacco, alcohol or drug use. Family History: Reviewed and noncontributory for presenting illness Allergies: Reviewed, see documented allergy list. REVIEW OF SYSTEMS: Other than noted above, the 12 point review of systems was reviewed with the patient and were negative, all pertinent findings are included in the HPI. PHYSICAL EXAMINATION: Vital signs reviewed, nursing noted reviewed. GENERAL: Elderly male, extremely restless, his legs are flailing about in the bed, he is not sitting still HEAD: Atraumatic, normocephalic. EYES: Eyes appear normal, extraocular movements intact, sclera anicteric, conjunctiva are normal. ENT: nares patent, oropharynx clear without exudates. Moist mucous membranes. NECK: Normal range of motion, supple without lymphadenopathy LUNGS: Breath sounds clear to auscultation bilaterally and equal. No wheezes r ales or rhonchi. HEART: Regular rate and rhythm without murmurs ABDOMEN: Soft, nontender, normoactive bowel sounds. No rebound, guarding, or rigidity. No masses appreciated. EXTREMITIES: Tenderness with palpation of the anterior thigh on the right, normal range of motion of all extremities, noted to have right anterior knee incisional scar from total knee arthroplasty, appears well-healed, no evidence of infection, no erythema, or effusion noted. Extremity exam is otherwise nontender, good range of motion, no pitting or edema. NEUROLOGICAL: No focal neurological deficits. Bilateral restless legs, patient turns constantly in the bed, strength intact was 5/5 distally in all extremitie s, sensation intact and equal bilaterally distally, I was able to obtain patellar reflexes and they were +2/4 bilaterally as well. PSYCH: Patient seems agitated, continues to turn in the bed, I was able to redirect him, and he would briefly stop fidgeting, when having a discussion, and then would go back to turning back and forth in the bed. SKIN: Warm, Dry, normal turgor, no rashes or lesions noted on exposed skin TRAVEL OUTSIDE OF THE [place] IN LAST 30 DAYS: No - Related Data Allergies/Adverse Reactions: diazepam [From Valium] Allergy (Verified 06/04/18 11:02) peanut Allergy (Verified 06/04/18 11:02) Past Medical History - Social History Smoking Status: Former Smoker Family History: Reviewed & Not Pertinent Patient has suicidal ideation: No Patient has homicidal ideation: No - Past Medical History Cardiac Medical History: Reports: Hx Atrial Fibrillation - Post ablation therapy., Hx Congestive Heart Failure - 10 years ago. Denies: Hx Heart Attack, Hx Hypercholesterolemia, Hx Hypertension Pulmonary Medical History: Reports: Hx Bronchitis, Hx Pneumonia, Hx Sleep Apnea Denies: Hx Asthma, Hx COPD, Hx Tuberculosis Neurological Medical History: Reports: Hx Migraine. Denies: Hx Seizures Endocrine Medical History: Denies: Hx Diabetes Mellitus Type 1, Hx Diabetes Mellitus Type 2 Renal/ Medical History: Denies: Hx End Stage Renal Disease, Hx Kidney Stones, Hx Peritoneal Dialysis Malignancy Medical History: Reports Hx Prostate Cancer, Reports Hx Skin Cancer GI Medical History: Reports: Hx Gastritis, Hx Gastroesophageal Reflux Disease, Hx Hiatal Hernia, Hx Irritable Bowel, Hx Ulcer, Hx Endoscopy Musculoskeletal Medical History: Reports Hx Arthritis, Reports Hx Musculoskeletal Deformity, Reports Hx Musculoskeletal Trauma Psychiatric Medical History: Reports: Hx Depression Denies: Hx Attention Deficit Hyperactivity Disorder, Hx Bipolar Disorder, Hx Schizophrenia Traumatic Medical History: Reports: Hx Fractures - Nose Past Surgical History: Reports: Hx Adenoidectomy, Hx Cholecystectomy, Hx Genitourinary Surgery - bladder stimulater placement, Hx Nose Surgery, Hx Orth opedic Surgery - Right knee, right and left hip replacement, shoulder surgery, Hx Rectal Surgery - Hemorrhoid surgery, Hx Tonsillectomy. Denies: Hx Abdominal Surgery - Immunizations Immunizations up to date: Yes Physical Exam - Vital signs Vitals: Temp Pulse Resp BP Pulse Ox 97.4 F 81 18 192/86 H 94 06/04/18 11:05 06/04/18 11:05 06/04/18 11:05 06/04/18 11:05 06/04/18 11:05 Course - Re-evaluation Re-evalutation: CT imaging of the lumbar spine and x-rays of the knee were ordered by the triage provider, and he was restarted on his home medication for restless leg syndrome, patient continued to flail and fidget back and forth in the bed, he was given a dose of oral Percocet for his pain, as well as given a dose of Depo-Medrol to see if it would help with his symptoms, he is also lastly given a dose of IM Dilaudid to help cool his pain down. And ultimately get the patient back home, I believe he is having rebound effects from being off of his restless leg syndrome medications including Neurontin and ropinirole, thus leading to exacerbation of his baseline restless leg syndrome leading to his falls. CT imaging of the lumbar spine demonstrate degenerative disc disease, but no focal injury, no acute bony injury, x-ray of the knee unremarkable. Patient re-evaluated and appears improved after treatment and feels comfortable with discharge, will give short prescription for oxy-IR and encouraged tylenol in between and warm compresses. Laboratory 06/04/18 06/04/18 06/04/18 11:42 11:42 12:35 WBC Cancelled Cancelled RBC Cancelled Cancelled Hgb Cancelled Cancelled Hct Cancelled Cancelled MCV Cancelled Cancelled MCH Cancelled Cancelled MCHC Cancelled Cancelled RDW Cancelled Cancelled Plt Count Cancelled Cancelled Seg Neutrophils % Cancelled Cancelled Lymphocytes % Cancelled Cancelled Monocytes % Cancelled Cancelled Eosinophils % Cancelled Cancelled Basophils % Cancelled Cancelled Absolute Neutrophils Cancelled Cancelled Absolute Lymphocytes Cancelled Cancelled Absolute Monocytes Cancelled Cancelled Absolute Eosinophils Cancelled Cancelled Absolute Basophils Cancelled Cancelled Platelet Estimate Cancelled Cancelled Sodium 139.4 Potassium 4.5 Chloride 109 H Carbon Dioxide 23 Anion Gap 7 BUN 21 H Creatinine 0.83 Est GFR ( Amer) > 60 Est GFR (Non-Af Amer) > 60 Glucose 105 Calcium 9.8 Creatine Kinase 772 H Slides for Path Review Cancelled Cancelled 06/04/18 14:11 WBC 6.9 RBC 3.99 L Hgb 13.3 L Hct 38.7 MCV 97 MCH 33.4 MCHC 34.4 RDW 13.8 Plt Count 166 Seg Neutrophils % 65.0 Lymphocytes % 21.2 Monocytes % 11.4 Eosinophils % 2.0 Basophils % 0.4 Absolute Neutrophils 4.5 Absolute Lymphocytes 1.5 Absolute Monocytes 0.8 Absolute Eosinophils 0.1 Absolute Basophils 0.0 Platelet Estimate Sodium Potassium Chloride Carbon Dioxide Anion Gap BUN Creatinine Est GFR ( Amer) Est GFR (Non-Af Amer) Glucose Calcium Creatine Kinase Slides for Path Review Lumbar Spine CT 06/04/18 11:22 IMPRESSION: No fracture or static subluxation of the lumbar spine. Multilevel disc and facet degenerative disease. Lumbar disc and neural foraminal pathology may be further evaluated by MRI if indicated by localizing signs and symptoms. Knee X-Ray 06/04/18 11:23 IMPRESSION: NEGATIVE STUDY OF THE RIGHT KNEE. NO RADIOGRAPHIC EVIDENCE OF ACUTE INJURY. - Vital Signs Vital signs: Temp Pulse Resp BP Pulse Ox 97.6 F 78 16 132/56 H 100 06/04/18 15:30 06/04/18 15:30 06/04/18 15:30 06/04/18 15:30 06/04/18 15:30 - Laboratory Result Diagrams: 06/04/18 14:11 06/04/18 11:42 Laboratory results interpreted by me: 06/04/18 06/04/18 11:42 14:11 RBC 3.99 L Hgb 13.3 L Chloride 109 H BUN 21 H Creatine Kinase 772 H Discharge - Discharge Clinical Impression: Restless leg syndrome, uncontrolled Leg pain Qualifiers: Laterality: right Qualified Code(s): M79.604 - Pain in right leg Condition: Stable Disposition: HOME, SELF-CARE Instructions: Leg Cramps ([facility]), Leg Pain Nonspecific ([facility]) Additional Instructions: Please take medication as prescribed, you must resume taking your medications for restless leg syndrome as soon as possible, please use your walker to get around, warm compresses for 20 minutes on and 20 minutes off to your right thigh. Prescriptions: Oxycodone HCl [Oxycontin Ir 5 Mg Tablet] 1 mg PO Q6H PRN #15 tablet PRN Reason: leg pain Referrals: BALTAZAR TALLEY FNP [Primary Care Provider] - Follow up in 3-5 days
[2018-06-04] MEDS ORDERED: HYDROMORPHONE HCL INJ/PF 2 MG/ML AMPULE IM ONE (14:07)
[2018-06-04 14:35] LABS: ABSOLUTE EOSINOPHILS # (AUTO) 0.1 10^3/uL (0.0-0.6); ABSOLUTE LYMPHOCYTES (AUTO) 1.5 10^3/uL (0.5-4.7); ABSOLUTE MONOCYTES (AUTO) 0.8 10^3/uL (0.1-1.4); ABSOLUTE NEUT (AUTO) 4.5 10^3/uL (1.7-8.2); BASOPHILS % (AUTO) 0.4 % (0-2); HEMATOCRIT 38.7 % (37.9-51.0); HEMOGLOBIN 13.3 g/dL (13.5-17.0); LYMPHOCYTES % (AUTO) 21.2 % (13-45); MEAN CORPUSCULAR HEMOGLOBIN 33.4 pg (27.0-33.4); MEAN CORPUSCULAR HGB CONC 34.4 g/dL (32.0-36.0); MEAN CORPUSCULAR VOLUME 97 fl (80-97); MONOCYTES % (AUTO) 11.4 % (3-13); PLATELET COUNT 166 10^3/uL (150-450); RED BLOOD COUNT 3.99 10^6/uL (4.35-5.55); RED CELL DISTRIBUTION WIDTH 13.8 % (11.5-14.0); TOTAL CELLS COUNTED % (AUTO) 100 %; WHITE BLOOD COUNT 6.9 10^3/uL (4.0-10.5)
[2018-06-04 15:30] VITALS: BP 132/56
== END 2018-06-04 15:30 | disposition home or self-care (01) ==
LOC: ER 11:01
DX: G25.81 Restless legs syndrome (principal); M79.651 Pain in right thigh; W19.XXXA Unspecified fall, initial encounter; T42.6X6A Underdosing of other antiepileptic and sedative-hypnotic drugs, initial encounter; Z91.120 Patient's intentional underdosing of medication regimen due to financial hardship; Z91.14 Patient's other noncompliance with medication regimen; Z79.899 Other long term (current) drug therapy; M51.36 Other intervertebral disc degeneration, lumbar region; Z96.653 Presence of artificial knee joint, bilateral; Z96.643 Presence of artificial hip joint, bilateral; Z88.8 Allergy status to other drugs, medicaments and biological substances; Z91.010 Allergy to peanuts; Z87.891 Personal history of nicotine dependence
CPT/HCPCS: 99284; 36415; 82550; 85025; 80048; 73560; 72131; A9270 ×3; J1040; J1170; J3490

== ENCOUNTER 2018-10-12 12:49 | Outpatient (CLI) | payer MEDICARE ==
[~2018-10-12 12:49] MED LIST: IRON DEXTRAN COMPLEX 25 MG in SYRINGE, DISPOSABLE, 1 EACH IV PRN; IRON DEXTRAN COMPLEX 775 MG in NORMAL SALINE 500 ML IV PRN; IRON DEXTRAN INJ 100 MG/2 ML VIAL IV PRN; NORMAL SALINE 250 ML IV PRN
[2018-10-12 13:44] VITALS: BP 155/56
== END 2018-10-12 17:50 | disposition home or self-care (01) ==
LOC: II 12:49 → 5TH 16:35 → II 17:50
PROVIDERS: ATTEND Internal Medicine
PROC: 3E033GC Introduction of Other Therapeutic Substance into Peripheral Vein, Percutaneous Approach (ICD-10-PCS; principal; 2018-10-12)
DX: D50.9 Iron deficiency anemia, unspecified (principal)
CPT/HCPCS: 96365; 96366; 96374; J1750; J7040; J3490; 96375

== ENCOUNTER 2018-10-19 08:32 | Outpatient (CLI) | payer MEDICARE ==
[~2018-10-19 08:32] MED LIST changes: -IRON DEXTRAN COMPLEX 25 MG in SYRINGE, DISPOSABLE, 1 EACH IV PRN; -IRON DEXTRAN COMPLEX 775 MG in NORMAL SALINE 500 ML IV PRN; +IRON DEXTRAN COMPLEX 800 MG in NORMAL SALINE 500 ML IV PRN; -IRON DEXTRAN INJ 100 MG/2 ML VIAL IV PRN
[2018-10-19 09:00] VITALS: BP 118/59
== END 2018-10-19 13:39 | disposition home or self-care (01) ==
LOC: II 08:32 → 5TH 08:51 → II 13:39
PROVIDERS: ATTEND Internal Medicine
PROC: 3E033GC Introduction of Other Therapeutic Substance into Peripheral Vein, Percutaneous Approach (ICD-10-PCS; principal; 2018-10-19)
DX: D50.9 Iron deficiency anemia, unspecified (principal)
CPT/HCPCS: 96365; 96366; J1750; J7040

== ENCOUNTER 2019-01-05 21:11 | Observation (INO) | payer MEDICARE ==
--- NOTE | 2019-01-05 21:34 | ER Document Report ---
ED General - General Chief Complaint: Chest Pain Stated Complaint: ALTERED MENTAL STATUS Time Seen by Provider: 01/05/19 21:22 Notes: Patient is a 73-year-old male that comes emergency department for chief complaint of an episode where he was on the peer earlier, he started acting confused and tired, reportedly he was asked if he is okay, then he passed out. He was caught when falling, he states he feels weak. He admits that when he became lightheaded he did feel pain in his chest, he was not postictal for EMS, EMS gave him 324 mg of aspirin and nitroglycerin. He denies feeling the pain in his chest now like earlier. He denies any current symptoms except weakness, denies headache, focal numbness or weakness, nausea/vomiting, abdominal pain. Past medical history includes neuropathy on gabapentin, restless legs, and a history of A. fib status post ablation but not medicated for this. He denies any medical history otherwise. TRAVEL OUTSIDE OF THE [place] IN LAST 30 DAYS: No - Related Data Allergies/Adverse Reactions: diazepam [From Valium] Allergy (Verified 01/05/19 21:36) peanut Allergy (Verified 01/05/19 21:36) Past Medical History - General Information source: Patient, Relative - Social History Smoking Status: Former Smoker Drug Abuse: None Lives with: Family Family History: Reviewed & Not Pertinent - Past Medical History Cardiac Medical History: Reports: Hx Atrial Fibrillation - Post ablation therapy., Hx Congestive Heart Failure - 10 years ago. Denies: Hx Heart Attack, Hx Hypercholesterolemia, Hx Hypertension Pulmonary Medical History: Reports: Hx Bronchitis, Hx Pneumonia, Hx Sleep Apnea Denies: Hx Asthma, Hx COPD, Hx Tuberculosis Neurological Medical History: Reports: Hx Migraine. Denies: Hx Seizures Endocrine Medical History: Denies: Hx Diabetes Mellitus Type 1, Hx Diabetes Mellitus Type 2 Renal/ Medical History: Denies: Hx End Stage Renal Disease, Hx Kidney Stones, Hx Peritoneal Dialysis Malignancy Medical History: Reports Hx Prostate Cancer, Reports Hx Skin Cancer GI Medical History: Reports: Hx Gastritis, Hx Gastroesophageal Reflux Disease, Hx Hiatal Hernia, Hx Irritable Bowel, Hx Ulcer, Hx Endoscopy Musculoskeletal Medical History: Reports Hx Arthritis, Reports Hx Musculoskeletal Deformity, Reports Hx Musculoskeletal Trauma Psychiatric Medical History: Reports: Hx Depression Denies: Hx Attention Deficit Hyperactivity Disorder, Hx Bipolar Disorder, Hx Schizophrenia Traumatic Medical History: Reports: Hx Fractures - Nose Past Surgical History: Reports: Hx Adenoidectomy, Hx Cholecystectomy, Hx Genitourinary Surgery - bladder stimulater placement, Hx Nose Surgery, Hx Orthopedic Surgery - Right knee, right and left hip replacement, shoulder corral rgery, Hx Rectal Surgery - Hemorrhoid surgery, Hx Tonsillectomy. Denies: Hx Abdominal Surgery - Immunizations Immunizations up to date: Yes Review of Systems - Review of Systems Constitutional: No symptoms reported EENT: No symptoms reported Cardiovascular: See HPI Respiratory: No symptoms reported Gastrointestinal: No symptoms reported Genitourinary: No symptoms reported Male Genitourinary: No symptoms reported Musculoskeletal: No symptoms reported Skin: No symptoms reported Hematologic/Lymphatic: No symptoms reported Neurological/Psychological: No symptoms reported Physical Exam - Vital signs Vitals: Pulse 70 01/05/19 21:11 - Notes Notes: GENERAL: Alert, interacts well. No acute distress. HEAD: Normocephalic, atraumatic. EYES: Pupils equal, round, and reactive to light. Extraocular movements intact. ENT: Oral mucosa moist, tongue midline. Oropharynx unremarkable. Airway patent. NECK: Full range of motion. Supple. Trachea midline. LUNGS: Clear to auscultation bilaterally, no wheezes, rales, or rhonchi. No respiratory distress. Minimal reproducible chest wall tenderness over the left mid chest. HEART: Regular rate and rhythm. ABDOMEN: Soft, non-tender. Non-distended. GENITOURINARY: Deferred EXTREMITIES: Moves all 4 extremities spontaneously. No edema, normal radial and dorsalis pedis pulses bilaterally. No cyanosis. BACK: no cervical, thoracic, lumbar midline tenderness. No saddle anesthesia, n ormal distal neurovascular exam. Moves all extremities in full range of motion. NEUROLOGICAL: Alert and oriented x3. Normal speech. Cranial nerves II through XII grossly intact. PSYCH: Normal affect, normal mood. SKIN: Warm, dry, normal turgor. No rashes or lesions noted. Course - Re-evaluation Re-evalutation: Patient is slightly pale on my initial evaluation, he was given IV fluids, he did improve afterwards. His vital signs are unremarkable. He is alert and oriented. He is denying chest pain since the episode of syncope. He does have a little bit of chest pain on palpation of the chest but he states this is entirely different. EKG without significant change although he does have some PACs. Chest x-ray unremarkable. CBC shows mild anemia, macrocytic, alcohol negative. Chemistry shows slightly low bicarbonate. Troponin is negative. I discussed with patient and at bedside. Because of patient's episode of chest pain followed by syncope I am concerned he might have had a dangerous tachyarrhythmia. Recommendation is admission. Patient agreement with plan. Discussed with Dr. Morales, patient accepted for telemetry observation. - Vital Signs Vital signs: Temp Pulse Resp BP Pulse Ox 99.4 F 64 16 108/61 98 01/06/19 05:31 01/06/19 05:35 01/06/19 05:31 01/06/19 05:31 01/06/19 05:55 - Laboratory Result Diagrams: 01/05/19 23:19 01/06/19 02:48 Laboratory results interpreted by me: 01/05/19 01/05/19 21:54 23:19 RBC 3.73 L Hgb 12.9 L Hct 37.8 L MCV 101 H MCH 34.7 H Plt Count 114 L Carbon Dioxide 20 L BUN 23 H Glucose 127 H AST 66 H Total Protein 6.2 L Albumin 3.4 L - EKG Interpretation by Me Additional EKG results interpreted by me: EKG shows sinus rhythm at a rate of 70, QTC of 475, left axis deviation. Right bundle branch block and left anterior fascicular block present, PAC is present. No T wave inversions or ST segment changes in consecutive leads. No significant change from prior. Discharge - Discharge Clinical Impression: Chest pain Qualifiers: Chest pain type: unspecified Qualified Code(s): R07.9 - Chest pain, unspecified Episode of syncope Qualifiers: Syncope type: unspecified Qualified Code(s): R55 - Syncope and collapse Condition: Stable Disposition: ADMITTED OBSERVATION Admitting Provider: Carmen (Hospitalist) Unit Admitted: Telemetry
--- NOTE | 2019-01-05 22:25 | RADIOLOGY REPORT (SQ) ---
EXAM DESCRIPTION: CT HEAD WITHOUT IV CONTRAST COMPLETED DATE/TME: 01/05/2019 21:31 CLINICAL HISTORY: confusion, dizzy COMPARISON: None available TECHNIQUE: Axial CT of the head obtained from the skull apex to the skull base without contrast. FINDINGS: No acute intracranial hemorrhage identified. No mass, mass effect, shift of the midline, abnormal extra-axial fluid collection or CT evidence of acute ischemic change identified. The ventricular system and sulcal spaces are age appropriate. Scattered areas of hypodensity throughout the supratentorial white matter are nonspecific and may be related to chronic small vessel ischemic change. The visualized paranasal sinuses and the mastoids are clear. No skull fracture identified. Visualized orbits and globes are unremarkable. Atherosclerotic calcification of the intracranial internal carotid arteries. DLP: 1043.7 mGy-cm IMPRESSION: 1. No acute intracranial abnormality by CT criteria. This exam was performed according to our departmental dose-optimization program, which includes automated exposure control, adjustment of the mA and/or kV according to patient size and/or use of iterative reconstruction technique.
[2019-01-05 22:26] LABS: ALBUMIN 3.4 g/dL (3.5-5.0); ALCOHOL < 10 mg/dL (NONE DETECTED); ALKALINE PHOSPHATASE 74 U/L (38-126); ANION GAP 10 (5-19); ASPARTATE AMINO TRANSFERASE 66 U/L (17-59); BILIRUBIN,DIRECT 0.3 mg/dL (0.0-0.4); BILIRUBIN,TOTAL 0.7 mg/dL (0.2-1.3); BLOOD UREA NITROGEN 23 mg/dL (7-20); CALCIUM 9.3 mg/dL (8.4-10.2); CARBON DIOXIDE 20 mmol/L (22-30); CHLORIDE 107 mmol/L (98-107); GLUCOSE 127 mg/dL (75-110); POTASSIUM 4.3 mmol/L (3.6-5.0); TOTAL PROTEIN 6.2 g/dL (6.3-8.2)
--- NOTE | 2019-01-05 22:26 | RADIOLOGY REPORT (SQ) ---
EXAM DESCRIPTION: XR CHEST 1 VIEW COMPLETED DATE/TME: 01/05/2019 21:31 CLINICAL HISTORY: chest pain, syncopal episode COMPARISON: None. FINDINGS: Single frontal view of the chest. Cardiomediastinal silhouette: Atherosclerotic calcification of the thoracic aorta. Heart is not enlarged. Leads overlie the chest. Lungs: Minimal linear left basilar opacities. No pneumothorax or pleural effusion. Bones: No acute osseous abnormality. Upper abdomen: No abnormality identified. IMPRESSION: 1. Linear left basilar opacities likely related to discoid atelectasis.
[2019-01-05] MEDS ORDERED: NORMAL SALINE 1000 ML 1,000 ML IV ONE (22:31)
[2019-01-05 22:37] LABS: VENOUS BLOOD BASE EXCESS -2.6 mmol/L; VENOUS BLOOD HCO3 22.3 mmol/L (20-32); VENOUS BLOOD PCO2 39.3 mmHg (35-63); VENOUS BLOOD PH 7.37 (7.30-7.42)
[2019-01-05 23:41] LABS: ABSOLUTE LYMPHOCYTES (AUTO) 1.1 10^3/uL (0.5-4.7); ABSOLUTE MONOCYTES (AUTO) 0.7 10^3/uL (0.1-1.4); ABSOLUTE NEUT (AUTO) 5.9 10^3/uL (1.7-8.2); BASOPHILS % (AUTO) 0.5 % (0-2); EOSINOPHILS % (AUTO) 0.6 % (0-6); HEMATOCRIT 37.8 % (37.9-51.0); HEMOGLOBIN 12.9 g/dL (13.5-17.0); LYMPHOCYTES % (AUTO) 14.1 % (13-45); MEAN CORPUSCULAR HEMOGLOBIN 34.7 pg (27.0-33.4); MEAN CORPUSCULAR HGB CONC 34.3 g/dL (32.0-36.0); MEAN CORPUSCULAR VOLUME 101 fl (80-97); MONOCYTES % (AUTO) 8.4 % (3-13); PLATELET COUNT 114 10^3/uL (150-450); RED BLOOD COUNT 3.73 10^6/uL (4.35-5.55); RED CELL DISTRIBUTION WIDTH 13.3 % (11.5-14.0); SEGMENTED NEUTROPHILS % (AUTO) 76.4 % (42-78); TOTAL CELLS COUNTED % (AUTO) 100 %; WHITE BLOOD COUNT 7.7 10^3/uL (4.0-10.5)
[2019-01-06 00:05] LABS: APPEARANCE,URINE SLIGHTLY-CLOUDY; BILIRUBIN,URINE NEGATIVE (NEGATIVE); COLOR,URINE YELLOW; GLUCOSE, URINE NEGATIVE (NEGATIVE); KETONES,URINE NEGATIVE (NEGATIVE); LEUKOCYTE ESTERASE,URINE NEGATIVE (NEGATIVE); NITRITE,URINE NEGATIVE (NEGATIVE); PROTEIN,URINE NEGATIVE (NEGATIVE); URINE SPECIFIC GRAVITY 1.025; UROBILINOGEN,URINE NEGATIVE mg/dL (<2.0)
[2019-01-06 04:53] LABS: ALBUMIN 3.5 g/dL (3.5-5.0); ALKALINE PHOSPHATASE 89 U/L (38-126); ANION GAP 7 (5-19); ASPARTATE AMINO TRANSFERASE 61 U/L (17-59); BILIRUBIN,DIRECT 0.3 mg/dL (0.0-0.4); BILIRUBIN,TOTAL 0.4 mg/dL (0.2-1.3); BLOOD UREA NITROGEN 20 mg/dL (7-20); CALCIUM 8.9 mg/dL (8.4-10.2); CARBON DIOXIDE 24 mmol/L (22-30); CHLORIDE 109 mmol/L (98-107); CREATINE KINASE 111 U/L (55-170); GLUCOSE 103 mg/dL (75-110); POTASSIUM 4.4 mmol/L (3.6-5.0); TOTAL PROTEIN 6.4 g/dL (6.3-8.2)
--- NOTE | 2019-01-06 05:36 | PDOC H&P ---
History of Present Illness Admission Date/PCP: 01/06/19 02:08 EMELIA ABARCA Patient complains of: Syncopal episodes History of Present Illness: ROXANA ALFARO is a 73 year old male who presented the emergency room with an acute syncopal episode. He admits that he and his friend were fishing and [place] the pier he began to feel weak and tired so he went over to talk to his friend and suddenly became lightheaded and developed acute, severe, left central/substernal sharp stabbing chest pain without radiation and a minute or so later he passed out and his friend eased him to the ground. He was unconscious for less than 60 seconds and regained consciousness without chest pain. His friend noted that he seemed to have become confused and looked very tired before he passed out. His friend reports no seizure-like activity occurred. Patient admits to having numerous prior similar episodes of passing out but never had one accompanied by chest pain prior to the episode. He has not identified any aggravating or ameliorating factors for his syncope. In the emergency room he was found to have a negative CT of the head and his cardiac evaluation was also unremarkable. He was subsequently admitted to the hospital for further evaluation and treatment of his syncope. Past Medical History Cardiac Medical History: Reports: Atrial Fibrillation - Post ablation therapy., Congestive Heart Failure Denies: Coronary Artery Disease, Myocardial Infarction, Hyperlipidema, Hypertension Pulmonary Medical History: Reports: Bronchitis, Pneumonia, Sleep Apnea Denies: Asthma, Chronic Obstructive Pulmonary Disease (COPD), Tuberculosis EENT Medical History: Reports: Cataracts Denies: Ears - Hearing aids, Nose - Allergic rhinitis Neurological Medical History: Reports: Migraine, Other - Restless leg syndrome Denies: Hemorrhagic CVA, Ischemic CVA, Multiple Sclerosis, Seizures Endocrine Medical History: Reports: Obesity Denies: Diabetes Mellitus Type 1, Diabetes Mellitus Type 2, Hyperthyroidism, Hypothyroidism Renal/ Medical History: Reports: Other - Benign prostatic hypertrophy Denies: Chronic Kidney Disease, Nephrolithiasis Malignancy Medical History: Reports: Skin Cancer, Other - Prostate cancer GI Medical History: Reports: Gastroesophageal Reflux Disease, Hiatal Hernia Denies: Cirrhosis, Hepatitis Musculoskeltal Medical History: Reports: Arthritis Denies: Gout Skin Medical History: Denies: Eczema, Psoriasis Psychiatric Medical History: Reports: Depression Denies: Alcohol Dependency, Substance Abuse, Tobacco Dependency Traumatic Medical History: Reports: None Hematology: Denies: Anemia, Bleeding Tendencies Infectious Medical History: Reports: None Past Surgical History Past Surgical History: Reports: Cholecystectomy, Orthopedic Surgery - Right knee, right and left hip replacement, shoulder surgery, Tonsillectomy, Other - TURP Social History Information Source: Patient Smoking Status: Former Smoker Frequency of Alcohol Use: None Hx Recreational Drug Use: No Drugs: None Hx Prescription Drug Abuse: No - Advance Directive Resuscitation Status: Full Code Surrogate healthcare decision maker:: Gali Alfaro Family History Family History: CAD, Malignancy. denies: DM, Hypertension Parental Family History Reviewed: Yes Children Family History Reviewed: No Sibling(s) Family History Reviewed.: Yes Medication/Allergy Home Medications: Gabapentin 800 mg PO QID 06/04/18 Pramipexole Di-HCl [Pramipexole Dihydrochloride] 1 mg PO TID 01/05/19 Allergies/Adverse Reactions: diazepam [From Valium] Allergy (Verified 01/05/19 21:36) peanut Allergy (Verified 01/05/19 21:36) Review of Systems Constitutional: PRESENT: as per HPI, fatigue, weakness. ABSENT: anorexia, chills, fever(s) Eyes: ABSENT: visual disturbances, other - Eye pain Ears: ABSENT: hearing changes, other - Ear pain Nose, Mouth, and Throat: ABSENT: mouth pain, sore throat Cardiovascular: PRESENT: as per HPI, chest pain. ABSENT: dyspnea on exertion, edema, orthropnea, palpitations Respiratory: ABSENT: cough, dyspnea Gastrointestinal: ABSENT: abdominal pain, constipation, diarrhea, nausea, vomiting Genitourinary: ABSENT: dysuria, hematuria Musculoskeletal: ABSENT: back pain, joint swelling, muscle weakness Integumentary: ABSENT: pruritus, rash Neurological: PRESENT: as per HPI, syncope. ABSENT: confusion, convulsions, focal weakness, memory loss Psychiatric: ABSENT: anxiety, depression Endocrine: ABSENT: cold intolerance, heat intolerance Hematologic/Lymphatic: ABSENT: easy bleeding, easy bruising Allergic/Immunologic: ABSENT: seasonal rhinorrhea Physical Exam Vital Signs: Temp Pulse Resp BP Pulse Ox 98.2 F 71 19 120/63 98 01/05/19 21:12 01/05/19 21:12 01/05/19 23:41 01/05/19 23:41 01/05/19 23:41 Intake & Output 01/04/19 01/05/19 01/06/19 23:59 23:59 23:59 Intake Total 1000 Balance 1000 Weight 124.738 kg General appearance: PRESENT: no acute distress, cooperative, obese Head exam: PRESENT: atraumatic, normocephalic Eye exam: PRESENT: conjunctiva pink. ABSENT: conjunctival injection, nystagmus, scleral icterus Ear exam: PRESENT: normal external ear exam. ABSENT: bleeding, drainage Mouth exam: PRESENT: dry mucosa, neck supple Neck exam: ABSENT: JVD, thyromegaly, tracheal deviation Respiratory exam: PRESENT: clear to auscultation paco, symmetrical, unlabored Cardiovascular exam: PRESENT: RRR. ABSENT: clicks, gallop, rubs Pulses: PRESENT: normal radial pulses, normal dorsalis pedis pul Vascular exam: PRESENT: normal capillary refill. ABSENT: pallor GI/Abdominal exam: PRESENT: normal bowel sounds, soft. ABSENT: tenderness Rectal exam: PRESENT: deferred Extremities exam: ABSENT: joint swelling, pedal edema Musculoskeletal exam: PRESENT: full ROM, normal inspection. ABSENT: tenderness Neurological exam: PRESENT: alert, oriented to person, oriented to place, oriented to time, oriented to situation, CN II-XII grossly intact. ABSENT: motor sensory deficit Psychiatric exam: PRESENT: appropriate affect, normal mood Skin exam: PRESENT: dry, intact, warm. ABSENT: jaundice, rash, urticaria Results Laboratory Results: 01/05/19 23:19 01/05/19 21:54 01/05/19 01/05/19 01/05/19 21:54 21:54 22:18 WBC Cancelled RBC Cancelled Hgb Cancelled Hct Cancelled MCV Cancelled MCH Cancelled MCHC Cancelled RDW Cancelled Plt Count Cancelled Seg Neutrophils % Cancelled Lymphocytes % Cancelled Monocytes % Cancelled Eosinophils % Cancelled Basophils % Cancelled Absolute Neutrophils Cancelled Absolute Lymphocytes Cancelled Absolute Monocytes Cancelled Absolute Eosinophils Cancelled Absolute Basophils Cancelled VBG pH 7.37 VBG pCO2 39.3 VBG HCO3 22.3 VBG Base Excess -2.6 Sodium 137.2 Potassium 4.3 Chloride 107 Carbon Dioxide 20 L Anion Gap 10 BUN 23 H Creatinine 1.06 Est GFR ( Amer) > 60 Est GFR (Non-Af Amer) > 60 Glucose 127 H Calcium 9.3 Total Bilirubin 0.7 AST 66 H Alkaline Phosphatase 74 Total Protein 6.2 L Albumin 3.4 L Urine Color Urine Appearance Urine pH Ur Specific [place] Urine Protein Urine Glucose (UA) Urine Ketones Urine Blood Urine Nitrite Ur Leukocyte Esterase Urine WBC (Auto) Urine RBC (Auto) Blood Type Antibody Screen 01/05/19 01/05/19 01/05/19 23:19 23:19 23:40 WBC 7.7 RBC 3.73 L Hgb 12.9 L Hct 37.8 L MCV 101 H MCH 34.7 H MCHC 34.3 RDW 13.3 Plt Count 114 L Seg Neutrophils % 76.4 Lymphocytes % 14.1 Monocytes % 8.4 Eosinophils % 0.6 Basophils % 0.5 Absolute Neutrophils 5.9 Absolute Lymphocytes 1.1 Absolute Monocytes 0.7 Absolute Eosinophils 0.0 Absolute Basophils 0.0 VBG pH VBG pCO2 VBG HCO3 VBG Base Excess Sodium Potassium Chloride Carbon Dioxide Anion Gap BUN Creatinine Est GFR ( Amer) Est GFR (Non-Af Amer) Glucose Calcium Total Bilirubin AST Alkaline Phosphatase Total Protein Albumin Urine Color YELLOW Urine Appearance SLIGHTLY-CLOUDY Urine pH 5.0 Ur Specific [place] 1.025 Urine Protein NEGATIVE Urine Glucose (UA) NEGATIVE Urine Ketones NEGATIVE Urine Blood NEGATIVE Urine Nitrite NEGATIVE Ur Leukocyte Esterase NEGATIVE Urine WBC (Auto) 1 Urine RBC (Auto) 0 Blood Type O POSITIVE Antibody Screen NEGATIVE 01/05/19 21:54 Troponin I < 0.012 Impressions: Chest X-Ray 01/05/19 21:31 IMPRESSION: 1. Linear left basilar opacities likely related to discoid atelectasis. Head CT 01/05/19 21:31 IMPRESSION: 1. No acute intracranial abnormality by CT criteria. This exam was performed according to our departmental dose-optimization program, which includes automated exposure control, adjustment of the mA and/or kV according to patient size and/or use of iterative reconstruction technique. Assessment and Plan - Diagnosis (1) Chest pain Qualifiers: Chest pain type: unspecified Qualified Code(s): R07.9 - Chest pain, unspecified Is this a current diagnosis for this admission?: Yes Plan: Serial cardiac enzymes and EKGs will be obtained to evaluate the patient's chest pain. If pain develops his chest pain again he will be treated with morphine sulfate 2 to 4 mg IV every 2 hours on a as needed basis via sliding scale. (2) Episode of syncope Qualifiers: Syncope type: unspecified Qualified Code(s): R55 - Syncope and collapse Is this a current diagnosis for this admission?: Yes Plan: Patient syncopal episode will be investigated with an echocardiogram and evaluation of the patient's chest pain as above. Patient will be monitored on telemetry to assess for arrhythmias. (3) PAF (paroxysmal atrial fibrillation) Is this a current diagnosis for this admission?: Yes Plan: Patient will be monitored throughout his hospital course to observe for any conversion from his current sinus rhythm to paroxysmal atrial fibrillation. Patient is not currently on any therapy for his paroxysmal atrial fibrillation. (4) YELENA (obstructive sleep apnea) Is this a current diagnosis for this admission?: Yes Plan: Patient will continue with his usual treatment of obstructive sleep apnea. CPAP/BiPAP will be provided. (5) CHF (congestive heart failure) Qualifiers: Heart failure type: unspecified Heart failure chronicity: chronic Qualified Code(s): I50.9 - Heart failure, unspecified Is this a current diagnosis for this admission?: Yes Plan: Patient's congestive heart failure will be evaluated with a BNP as well as a echocardiogram which will be obtained as part of the evaluation of his syncope. - Time Time Spent with patient: 25-34 minutes Medications reviewed and adjusted accordingly: Yes Anticipated discharge: Home - Inpatient Certification Based on my medical assessment, after consideration of the patient's comorbidities, presenting symptoms, or acuity I expect that the services needed warrant INPATIENT care.: Yes I certify that my determination is in accordance with my understanding of Medicare's requirements for reasonable and necessary INPATIENT services [42 CFR 412.3e].: Yes Medical Necessity: Significant Comorbidiites Make Outpatient Treatment Too Risky, Need Close Monitoring Due to Risk of Patient Decompensation, Need For Continuous Telemetry Monitoring, Risk of Complication if Not Cared For in Hospital
--- NOTE | 2019-01-06 05:43 | ADVANCED CARE ---
- Diagnosis (1) Chest pain Diagnosis Current: Yes (2) Episode of syncope Diagnosis Current: Yes (3) PAF (paroxysmal atrial fibrillation) Diagnosis Current: Yes (4) YELENA (obstructive sleep apnea) Diagnosis Current: Yes (5) CHF (congestive heart failure) Diagnosis Current: Yes Attendance: Patient and myself. Resuscitation Status: Full Code Discussion: After brief discussion the patient is determined he wishes to be a full code for resuscitation status during this admission. Gali Alfaro is his surrogate medical decision-maker Care Planning Goals: 1. Patient will be full CODE STATUS for this admission 2. Gali Alfaro is his surrogate medical decision-maker Document(s) Completed: The following information is entered to the into the patient's medical record via EMR entry: 1. Patient will be full CODE STATUS for this admission. 2. Gali Alfaro is his surrogate medical decision-maker. Time Spent: 15 minutes
[2019-01-06] MEDS: GABAPENTIN 400 MG CAPSULE PO SCH ×2 (06:22→14:42)
[2019-01-06] MEDS: HEPARIN SOD (PORCINE) 5,000 UNIT/ML 1 ML VIAL SUBCUT SCH ×2 (06:22→13:58)
[2019-01-06] MEDS: PRAMIPEXOLE DI-HCL 0.5 MG TABLET PO SCH ×2 (09:07→14:42)
--- NOTE | 2019-01-06 09:21 | EKG REPORT ---
SEVERITY:- ABNORMAL ECG - SINUS RHYTHM ATRIAL PREMATURE COMPLEX RBBB AND LAFB : Confirmed by: Braeden Pamler MD 06-Jan-2019 09:21:22
--- NOTE | 2019-01-06 09:21 | EKG REPORT ---
SEVERITY:- ABNORMAL ECG - SINUS RHYTHM RBBB AND LAFB : Confirmed by: Braeden Palmer MD 06-Jan-2019 09:20:55
[2019-01-06 09:27] LABS: CREATINE KINASE MB 2.86 ng/mL (<4.55)
[2019-01-06 09:34] LABS: TROPONIN I < 0.012 ng/mL
[2019-01-06] MEDS ORDERED: ACETAMINOPHEN 325 MG TABLET PO PRN (11:09)
--- NOTE | 2019-01-06 11:16 | Progress Note Acknowledgement ---
Progress Note Acknowledgement Progess Note Acknowledgement: I, the undersigned member of the medical staff with appropriate privileges and with supervisory authority over [ PAC ], a dependent practice allied health professional, acknowledge that I have reviewed the progress notes entered on this patient, and in my professional judgment believe that the assessment made and/or any care evidenced was appropriate
--- NOTE | 2019-01-06 11:25 | PDOC PROGRESS REPORT ---
Subjective Progress Note for:: 01/06/19 Reason For Visit: SYNCOPE, CHEST PAIN 01/06/2019 patient was admitted last night for syncope and chest pain. First 2 troponins are negative, chest x-ray shows no significant pathology, EKGs are nondiagnostic for his chest pain. Patient has a history of atrial fib with ablation about 5 or 6 years ago that was treated in [place]. Patient had what sounds like cardiac tamponade following his ablation procedure however since that time is had no cardiac trouble. He does have a primary care provider here in [place] but no licensed nursing assistant. Patient is complaining of chest pain that is centered over his chest is having now does not radiate into his arm or his neck. He has no shortness of breath. No nausea. Review of admission labs showed no gross abnormalities. I have ordered a stat troponin, stat d-dimer, and a BNP. I also ordered pain medication. Patient has a echocardiogram scheduled for later today His vital signs are stable this morning blood pressure 125/67 pulse has been around 60 temperature 97.6 sats 86% on 2 L nasal cannula patient appears to be otherwise healthy no diabetes, no hypertension She was seen this morning at the nurses request for chest pain Physical Exam Vital Signs: Temp Pulse Resp BP Pulse Ox 97.6 F 59 L 20 125/67 96 01/06/19 07:36 01/06/19 07:36 01/06/19 07:36 01/06/19 07:36 01/06/19 07:36 Intake & Output 01/05/19 01/06/19 01/07/19 06:59 06:59 06:59 Intake Total 1000 Balance 1000 Weight 112.2 kg General appearance: PRESENT: mild distress Head exam: PRESENT: atraumatic, normocephalic Respiratory exam: PRESENT: clear to auscultation paco. ABSENT: rales, rhonchi, wheezes Cardiovascular exam: PRESENT: RRR. ABSENT: diastolic murmur, rubs, systolic murmur Neurological exam: PRESENT: alert, awake, oriented to person, oriented to place, oriented to time, oriented to situation, CN II-XII grossly intact. ABSENT: motor sensory deficit Psychiatric exam: PRESENT: appropriate affect, normal mood. ABSENT: homicidal ideation, suicidal ideation Results Laboratory Results: 01/05/19 23:19 01/06/19 02:48 01/05/19 01/05/19 01/05/19 21:54 21:54 21:54 WBC Cancelled RBC Cancelled Hgb Cancelled Hct Cancelled MCV Cancelled MCH Cancelled MCHC Cancelled RDW Cancelled Plt Count Cancelled Seg Neutrophils % Cancelled Lymphocytes % Cancelled Monocytes % Cancelled Eosinophils % Cancelled Basophils % Cancelled Absolute Neutrophils Cancelled Absolute Lymphocytes Cancelled Absolute Monocytes Cancelled Absolute Eosinophils Cancelled Absolute Basophils Cancelled VBG pH VBG pCO2 VBG HCO3 VBG Base Excess Sodium 137.2 Potassium 4.3 Chloride 107 Carbon Dioxide 20 L Anion Gap 10 BUN 23 H Creatinine 1.06 Est GFR ( Amer) > 60 Est GFR (Non-Af Amer) > 60 Glucose 127 H Calcium 9.3 Total Bilirubin 0.7 AST 66 H Alkaline Phosphatase 74 Total Protein 6.2 L Albumin 3.4 L Free T3 pg/mL 4.17 Urine Color Urine Appearance Urine pH Ur Specific [place] Urine Protein Urine Glucose (UA) Urine Ketones Urine Blood Urine Nitrite Ur Leukocyte Esterase Urine WBC (Auto) Urine RBC (Auto) Blood Type Antibody Screen 01/05/19 01/05/19 01/05/19 22:18 23:19 23:19 WBC 7.7 RBC 3.73 L Hgb 12.9 L Hct 37.8 L MCV 101 H MCH 34.7 H MCHC 34.3 RDW 13.3 Plt Count 114 L Seg Neutrophils % 76.4 Lymphocytes % 14.1 Monocytes % 8.4 Eosinophils % 0.6 Basophils % 0.5 Absolute Neutrophils 5.9 Absolute Lymphocytes 1.1 Absolute Monocytes 0.7 Absolute Eosinophils 0.0 Absolute Basophils 0.0 VBG pH 7.37 VBG pCO2 39.3 VBG HCO3 22.3 VBG Base Excess -2.6 Sodium Potassium Chloride Carbon Dioxide Anion Gap BUN Creatinine Est GFR ( Amer) Est GFR (Non-Af Amer) Glucose Calcium Total Bilirubin AST Alkaline Phosphatase Total Protein Albumin Free T3 pg/mL Urine Color Urine Appearance Urine pH Ur Specific [place] Urine Protein Urine Glucose (UA) Urine Ketones Urine Blood Urine Nitrite Ur Leukocyte Esterase Urine WBC (Auto) Urine RBC (Auto) Blood Type O POSITIVE Antibody Screen NEGATIVE 01/05/19 01/06/19 23:40 02:48 WBC RBC Hgb Hct MCV MCH MCHC RDW Plt Count Seg Neutrophils % Lymphocytes % Monocytes % Eosinophils % Basophils % Absolute Neutrophils Absolute Lymphocytes Absolute Monocytes Absolute Eosinophils Absolute Basophils VBG pH VBG pCO2 VBG HCO3 VBG Base Excess Sodium 139.8 Potassium 4.4 Chloride 109 H Carbon Dioxide 24 Anion Gap 7 BUN 20 Creatinine 0.92 Est GFR ( Amer) > 60 Est GFR (Non-Af Amer) > 60 Glucose 103 Calcium 8.9 Total Bilirubin 0.4 AST 61 H Alkaline Phosphatase 89 Total Protein 6.4 Albumin 3.5 Free T3 pg/mL Urine Color YELLOW Urine Appearance SLIGHTLY-CLOUDY Urine pH 5.0 Ur Specific [place] 1.025 Urine Protein NEGATIVE Urine Glucose (UA) NEGATIVE Urine Ketones NEGATIVE Urine Blood NEGATIVE Urine Nitrite NEGATIVE Ur Leukocyte Esterase NEGATIVE Urine WBC (Auto) 1 Urine RBC (Auto) 0 Blood Type Antibody Screen 01/05/19 01/06/19 01/06/19 21:54 02:48 02:48 Creatine Kinase 111 CK-MB (CK-2) Troponin I < 0.012 < 0.012 01/06/19 01/06/19 01/06/19 02:48 08:50 08:50 Creatine Kinase 123 CK-MB (CK-2) 2.38 2.86 Troponin I Cancelled < 0.012 Impressions: Chest X-Ray 01/05/19 21:31 IMPRESSION: 1. Linear left basilar opacities likely related to discoid atelectasis. Head CT 01/05/19 21:31 IMPRESSION: 1. No acute intracranial abnormality by CT criteria. This exam was performed according to our departmental dose-optimization program, which includes automated exposure control, adjustment of the mA and/or kV according to patient size and/or use of iterative reconstruction technique. Assessment and Plan - Diagnosis (1) CHF (congestive heart failure) Qualifiers: Heart failure type: unspecified Heart failure chronicity: chronic Qualified Code(s): I50.9 - Heart failure, unspecified Is this a current diagnosis for this admission?: Yes Plan: Patient's congestive heart failure will be evaluated with a BNP as well as a echocardiogram which will be obtained as part of the evaluation of his syncope. 01/06/2019 chest x-ray last night showed no indication of pulmonary edema. Patient thinks he may have had congestive heart failure in the past but is on no medicine for that (2) Chest pain Qualifiers: Chest pain type: unspecified Qualified Code(s): R07.9 - Chest pain, unspecified Is this a current diagnosis for this admission?: Yes Plan: Serial cardiac enzymes and EKGs will be obtained to evaluate the patient's chest pain. If pain develops his chest pain again he will be treated with morphine sulfate 2 to 4 mg IV every 2 hours on a as needed basis via sliding scale. 01/06/2019 I was asked to see the patient for pain nothing was ordered on the chart. Pain medication was ordered. Stat labs were ordered for his chest pain that he is having now, even though its mild previous troponins x2 have been normal. (3) Episode of syncope Qualifiers: Syncope type: unspecified Qualified Code(s): R55 - Syncope and collapse Is this a current diagnosis for this admission?: Yes Plan: Patient syncopal episode will be investigated with an echocardiogram and evalu ation of the patient's chest pain as above. Patient will be monitored on telemetry to assess for arrhythmias. 01/06/2019 no further episodes of syncope since last night. Patient relates to 2 separate episodes each 1 lasting 60 seconds (4) YELENA (obstructive sleep apnea) Is this a current diagnosis for this admission?: Yes (5) PAF (paroxysmal atrial fibrillation) Is this a current diagnosis for this admission?: Yes Plan: Patient will be monitored throughout his hospital course to observe for any conversion from his current sinus rhythm to paroxysmal atrial fibrillation. Patient is not currently on any therapy for his paroxysmal atrial fibrillation. 01/06/2019 EKG x2 shows no evidence of atrial fib patient did have atrial fib 5 or 6 years ago which required ablation - Time Time Spent with patient: 25-34 minutes
[2019-01-06] MEDS: OXYCODONE-ACETAMINOPHEN 5-325 MG TABLET PO PRN ×2 (11:34→16:16)
[2019-01-06] MEDS ORDERED: KETOROLAC TROMETHAMINE INJ/PF 30 MG/1 ML SDV IV SCH (12:00)
[2019-01-06 12:31] LABS: NT PRO BNP 111 pg/mL (5-900)
[2019-01-06 12:33] LABS: TROPONIN I < 0.012 ng/mL
[2019-01-06 15:56] VITALS: BP 108/61
--- NOTE | 2019-01-06 16:44 | PDOC DISCHARGE SUMMARY ---
General - Admit/Disc Date/PCP Admission Date/Primary Care Provider: 01/06/19 02:08 EMELIA ABARCA Patient was admitted through the emergency room on 01/04/2010 at approximately 0200 hrs. for syncope possibly chest pain. Discharge Date: 01/06/19 - Discharge Diagnosis (1) CHF (congestive heart failure) Is this a current diagnosis for this admission?: Yes Summary: Patient had no clinical indication of CHF and BNP was normal chest x-ray did not show any signs of edema (2) Chest pain Is this a current diagnosis for this admission?: Yes Summary: 01/06/2019 patient was seen by cardiology who felt that the patient's pain syncope may be secondary to 1 of his medications that he is taking for restless leg syndrome, Mirapex 1 mg every 8 hours she states is been on that for several years. The linen supply load builder felt that based on the side effect profile this could be an etiology patient had 4- troponins and EKGs that did not indicate ischemia (3) Episode of syncope Is this a current diagnosis for this admission?: Yes Summary: 01/06/2019 patient has had further syncopal episodes. Patient had a negative CT head scan in the emergency room. (4) YELEAN (obstructive sleep apnea) Is this a current diagnosis for this admission?: Yes Summary: Patient had no respiratory difficulty during the night. Patient did tell me that he only sleeps about 2 hours every night (5) PAF (paroxysmal atrial fibrillation) Is this a current diagnosis for this admission?: Yes Summary: 01/06/2019 patient states that about 5 or 6 years ago while living in [place] he had an episode of atrial fib which required ablation technique. Patient states that after the ablation seizure he had a pericardial tamponade required surgery patient states his had no cardiac problems since then. Patient does have a linen supply load builder and/or primary care physician Dr. Sepulveda who he sees - Additional Information Resuscitation Status: Full Code Discharge Diet: As Tolerated Discharge Activity: Balance Activity w/Rest Prescriptions: Amitriptyline HCl [Elavil 25 mg Tablet] 25 mg PO QHS #30 tablet Oxycodone HCl/Acetaminophen [Percocet 5-325 mg Tablet] 1 tab PO Q4HP PRN #10 tablet PRN Reason: For Pain Home Medications: Amitriptyline HCl [Elavil 25 mg Tablet] 25 mg PO QHS #30 tablet 08/10/19 Gabapentin [Neurontin 400 mg Capsule] 800 mg PO Q8 capsule 01/06/19 Gabapentin [Neurontin] 800 mg PO Q6 01/06/19 Oxycodone HCl/Acetaminophen [Percocet 5-325 mg Tablet] 1 tab PO Q4HP PRN #10 tablet 01/06/19 History of Present Illness History of Present Illness: ROXANA COLVIN is a 73 year old male When the patient was admitted last night approximately 2:00 in the morning of the emergency room physician and the hospitalist that he had had a syncopal episode where he became weak lightheaded chest pain and then syncopized for less than 60 seconds states he never hit the ground because someone assisted him to the floor patient states that he was somewhat confused during this episode. Patient tells me that this is been going on now for some time but not to this degree. I get the impression that he is never really since had a syncopal episode but has had multiple near syncopal episodes Patient was admitted to the hospital for cardiac enzymes and observation Hospital Course Hospital Course: 01/06/2019 while in the hospital the patient had multiple studies including CT head scan showed no acute intracranial lesions. Atrial premature complex right bundle branch block left atrial fascicular block cardiology saw the patient reviewed the work-up as well After having 4- troponins cardiology felt that this may be a side effect of his medication that he takes for restless leg syndrome, Mirapex, and the patient was advised to stop this medication. Patient in the hospital also had lab work VBC 7.7 H&H 12.9 37.8, d-dimer was normal at 0.33, electrolytes yesterday and today were normal for troponins were normal CK-MB index were all normal CK x2 were normal urinalysis was normal serum alcohol was less than 10. Chest x-ray showed a linear left basilar opacities likely related to discoid atelectasis. BNP was normal at 111 Physical Exam Vital Signs: Temp Pulse Resp BP Pulse Ox 97.7 F 69 16 108/61 97 01/06/19 15:56 01/06/19 15:56 01/06/19 15:56 01/06/19 15:56 01/06/19 15:56 Intake & Output 01/05/19 01/06/19 01/07/19 06:59 06:59 06:59 Intake Total 1000 350 Balance 1000 350 Weight 112.2 kg General appearance: PRESENT: no acute distress, well-developed, well-nourished Head exam: PRESENT: atraumatic, normocephalic Respiratory exam: PRESENT: clear to auscultation paco. ABSENT: rales, rhonchi, wheezes Cardiovascular exam: PRESENT: RRR. ABSENT: diastolic murmur, rubs, systolic murmur Neurological exam: PRESENT: alert, awake, oriented to person, oriented to place, oriented to time, oriented to situation, CN II-XII grossly intact. ABSENT: motor sensory deficit Psychiatric exam: PRESENT: appropriate affect, normal mood. ABSENT: homicidal ideation, suicidal ideation Results Laboratory Results: 01/05/19 23:19 01/06/19 02:48 01/05/19 01/05/19 01/05/19 21:54 21:54 21:54 WBC Cancelled RBC Cancelled Hgb Cancelled Hct Cancelled MCV Cancelled MCH Cancelled MCHC Cancelled RDW Cancelled Plt Count Cancelled Seg Neutrophils % Cancelled Lymphocytes % Cancelled Monocytes % Cancelled Eosinophils % Cancelled Basophils % Cancelled Absolute Neutrophils Cancelled Absolute Lymphocytes Cancelled Absolute Monocytes Cancelled Absolute Eosinophils Cancelled Absolute Basophils Cancelled VBG pH VBG pCO2 VBG HCO3 VBG Base Excess Sodium 137.2 Potassium 4.3 Chloride 107 Carbon Dioxide 20 L Anion Gap 10 BUN 23 H Creatinine 1.06 Est GFR ( Amer) > 60 Est GFR (Non-Af Amer) > 60 Glucose 127 H Calcium 9.3 Total Bilirubin 0.7 AST 66 H Alkaline Phosphatase 74 Total Protein 6.2 L Albumin 3.4 L Free T3 pg/mL 4.17 Urine Color Urine Appearance Urine pH Ur Specific [place] Urine Protein Urine Glucose (UA) Urine Ketones Urine Blood Urine Nitrite Ur Leukocyte Esterase Urine WBC (Auto) Urine RBC (Auto) Blood Type Antibody Screen 01/05/19 01/05/19 01/05/19 22:18 23:19 23:19 WBC 7.7 RBC 3.73 L Hgb 12.9 L Hct 37.8 L MCV 101 H MCH 34.7 H MCHC 34.3 RDW 13.3 Plt Count 114 L Seg Neutrophils % 76.4 Lymphocytes % 14.1 Monocytes % 8.4 Eosinophils % 0.6 Basophils % 0.5 Absolute Neutrophils 5.9 Absolute Lymphocytes 1.1 Absolute Monocytes 0.7 Absolute Eosinophils 0.0 Absolute Basophils 0.0 VBG pH 7.37 VBG pCO2 39.3 VBG HCO3 22.3 VBG Base Excess -2.6 Sodium Potassium Chloride Carbon Dioxide Anion Gap BUN Creatinine Est GFR ( Amer) Est GFR (Non-Af Amer) Glucose Calcium Total Bilirubin AST Alkaline Phosphatase Total Protein Albumin Free T3 pg/mL Urine Color Urine Appearance Urine pH Ur Specific [place] Urine Protein Urine Glucose (UA) Urine Ketones Urine Blood Urine Nitrite Ur Leukocyte Esterase Urine WBC (Auto) Urine RBC (Auto) Blood Type O POSITIVE Antibody Screen NEGATIVE 01/05/19 01/06/19 23:40 02:48 WBC RBC Hgb Hct MCV MCH MCHC RDW Plt Count Seg Neutrophils % Lymphocytes % Monocytes % Eosinophils % Basophils % Absolute Neutrophils Absolute Lymphocytes Absolute Monocytes Absolute Eosinophils Absolute Basophils VBG pH VBG pCO2 VBG HCO3 VBG Base Excess Sodium 139.8 Potassium 4.4 Chloride 109 H Carbon Dioxide 24 Anion Gap 7 BUN 20 Creatinine 0.92 Est GFR ( Amer) > 60 Est GFR (Non-Af Amer) > 60 Glucose 103 Calcium 8.9 Total Bilirubin 0.4 AST 61 H Alkaline Phosphatase 89 Total Protein 6.4 Albumin 3.5 Free T3 pg/mL Urine Color YELLOW Urine Appearance SLIGHTLY-CLOUDY Urine pH 5.0 Ur Specific [place] 1.025 Urine Protein NEGATIVE Urine Glucose (UA) NEGATIVE Urine Ketones NEGATIVE Urine Blood NEGATIVE Urine Nitrite NEGATIVE Ur Leukocyte Esterase NEGATIVE Urine WBC (Auto) 1 Urine RBC (Auto) 0 Blood Type Antibody Screen 01/05/19 01/06/19 01/06/19 21:54 02:48 02:48 Creatine Kinase 111 CK-MB (CK-2) Troponin I < 0.012 < 0.012 NT-Pro-B Natriuret Pep 01/06/19 01/06/19 01/06/19 02:48 08:50 08:50 Creatine Kinase 123 CK-MB (CK-2) 2.38 2.86 Troponin I Cancelled < 0.012 NT-Pro-B Natriuret Pep 01/06/19 01/06/19 01/06/19 11:34 11:34 11:34 Creatine Kinase 106 CK-MB (CK-2) 2.66 Troponin I Cancelled < 0.012 NT-Pro-B Natriuret Pep 111 Impressions: Chest X-Ray 01/05/19 21:31 IMPRESSION: 1. Linear left basilar opacities likely related to discoid atelectasis. Head CT 01/05/19 21:31 IMPRESSION: 1. No acute intracranial abnormality by CT criteria. This exam was performed according to our departmental dose-optimization program, which includes automated exposure control, adjustment of the mA and/or kV according to patient size and/or use of iterative reconstruction technique. Qualifiers - * PATIENT BEING DISCHARGED WITH ANY OF THE FOLLOWING DIAGNOSIS: No Acute Heart Failure - Is this a Heart Failure Patient?: No Plan Discharge Plan: Once again patient was instructed to call his physician on Tuesday. The linen supply load builder here, Dr. Morales, called and spoke to the physician on-call who has agreed to see him next week. Patient was discharged home with a prescription for Percocet 09/29/2024 and #10 Elavil 25 mg #31 nightly amitriptyline might help him sleep at night and help his restless leg syndrome Percocet would help his chest pain. The nurses were instructed as well patient seems satisfied with today's visit all of his questions were answered he is medically stable for discharge Time Spent: Greater than 30 Minutes
--- NOTE | 2019-01-06 20:00 | PDOC CONSULTATION ---
Consultation-Blank Consultation: CARDIOLOGY CONSULTATION by Dr. Tiff Morales on 01/06/2019. Patient seen at 3 PM. 60 minutes spent on this patient with more than 50% of time spent in direct patient care. REASON FOR CONSULTATION: Syncope. CONSULT REQUESTING PHYSICIAN: Patricio Laxmi [facility] physician hospitalist group. HISTORY PRESENT ILLNESS: Patient with a known history of prior ablation for atrial fibrillation, states that he was waiting for a friend to go fishing yesterday. He stood up and felt lightheaded and was almost going to pass out when he was helped by a neighbor/passerby. The patient states the episode was precipitated with severe chest pain which occurred when he stood up. Subsequently the patient again walked a little and then sat down and against it up when again he became very lightheaded with chest pain, without palpitations. And subsequently had a brief syncopal episode. He did not sustain any injury. It lasted for about 60 seconds or so and when he regained consciousness he was slightly confused for a short period of time. There was no seizure activity noted by the passerby. The patient states in the past he has had episodes of syncope, but none of them were associated with chest pains. He has no history of coronary artery disease. He states about 3 to 4 years ago he had ablation of atrial fibrillation which was complicated by pericardial tamponade which was drained, and subsequently the patient has been stable. He is also having Mirapex for unknown reason, although he denies any history of Parkinson's. At present the patient has no chest pain discomfort. There is no PND orthopnea. The patient is EKG shows sinus bradycardia with right bundle branch block pattern and left anterior fascicular block. The patient's cardiac enzymes have been negative. So far on the monitor there is no atrial or ventricular arrhythmia seen. Past Medical History Cardiac Medical History: Reports: Atrial Fibrillation - Post ablation therapy., Congestive Heart Failure Denies: Coronary Artery Disease, Myocardial Infarction, Hyperlipidema, Hypertension Pulmonary Medical History: Reports: Bronchitis, Pneumonia, Sleep Apnea Denies: Asthma, Chronic Obstructive Pulmonary Disease (COPD), Tuberculosis. The patient states in the past he has been diagnosed as having obstructive sleep apnea in the [facility]. Subsequently tried to re-do the test with a private physician, but was unable to sleep and hence the test was inconclusive. He does not wear CPAP. EENT Medical History: Reports: Cataracts Denies: Ears - Hearing aids, Nose - Allergic rhinitis Neurological Medical History: Reports: Migraine, Other - Restless leg syndrome Denies: Hemorrhagic CVA, Ischemic CVA, Multiple Sclerosis, Seizures Endocrine Medical History: Reports: Obesity Denies: Diabetes Mellitus Type 1, Diabetes Mellitus Type 2, Hyperthyroidism, Hypothyroidism Renal/ Medical History: Reports: Other - Benign prostatic hypertrophy Denies: Chronic Kidney Disease, Nephrolithiasis Malignancy Medical History: Reports: Skin Cancer, Other - Prostate cancer GI Medical History: Reports: Gastroesophageal Reflux Disease, Hiatal Hernia Denies: Cirrhosis, Hepatitis Musculoskeltal Medical History: Reports: Arthritis Denies: Gout Skin Medical History: Denies: Eczema, Psoriasis Psychiatric Medical History: Reports: Depression Denies: Alcohol Dependency, Substance Abuse, Tobacco Dependency Traumatic Medical History: Reports: None Hematology: Denies: Anemia, Bleeding Tendencies Infectious Medical History: Reports: None Past Surgical History Past Surgical History: Reports: Cholecystectomy, Orthopedic Surgery - Right knee, right and left hip replacement, shoulder surgery, Tonsillectomy, Other - TURP Social History Information Source: Patient Smoking Status: Former Smoker Frequency of Alcohol Use: None Hx Recreational Drug Use: No Drugs: None Hx Prescription Drug Abuse: No - Advance Directive Resuscitation Status: Full Code Surrogate healthcare decision maker:: His , Ms. Gali Alfaro Family History Family History: CAD, Malignancy. denies: DM, Hypertension Parental Family History Reviewed: Yes Children Family History Reviewed: No Sibling(s) Family History Reviewed.: Yes Medication/Allergy Home Medications: Gabapentin 800 mg PO QID 06/04/18 Pramipexole Di-HCl [Pramipexole Dihydrochloride] 1 mg PO TID 01/05/19 Allergies/Adverse Reactions: diazepam peanut Review of Systems Constitutional: PRESENT: as per HPI, fatigue, weakness. ABSENT: anorexia, chills, fever(s) Eyes: ABSENT: visual disturbances, other - Eye pain Ears: ABSENT: hearing changes, other - Ear pain Nose, Mouth, and Throat: ABSENT: mouth pain, sore throat Cardiovascular: PRESENT: as per HPI, chest pain. ABSENT: dyspnea on exertion, edema, orthropnea, palpitations Respiratory: ABSENT: cough, dyspnea Gastrointestinal: ABSENT: abdominal pain, constipation, diarrhea, nausea, vomiting Genitourinary: ABSENT: dysuria, hematuria Musculoskeletal: ABSENT: back pain, joint swelling, muscle weakness Integumentary: ABSENT: pruritus, rash Neurological: PRESENT: as per HPI, syncope. ABSENT: confusion, convulsions, focal weakness, memory loss Psychiatric: ABSENT: anxiety, depression Endocrine: ABSENT: cold intolerance, heat intolerance Hematologic/Lymphatic: ABSENT: easy bleeding, easy bruising Allergic/Immunologic: ABSENT: seasonal rhinorrhea PHYSICAL EXAMINATION: The patient is moderately obese. In no acute distress. Selected Entries 01/06/19 01/06/19 15:53 16:00 Temperature 97.7 F Pulse Rate 69 Respiratory 16 Rate Blood Pressure 108/61 [Right Upper Arm] O2 Sat by Pulse 97 Oximetry Oxygen Flow 2.00 Rate HEAD: Is atraumatic normocephalic. EYES: Pupils are equal round regular reactive to light and accommodation. Extraocular movements are normal. There is no conjunctival pallor. There is no scleral icterus. EARS: Tympanic memories are intact external auditory canals are clear. NOSE: There is no deviated nasal septum. There is no inflammation of the nasal mucous membrane. MOUTH: Mucous membranes of mouth are moist tongue is moist. There is no ulcers. There is no bleeding from the gums. THROAT: There is no redness of the oropharynx. There is no exudates. SKIN: There is no petechia or ecchymosis. There is no skin rashes or skin lesions. NECK: Neck is supple there is no JVD. Carotids are equal there is no bruits. There is no lymphadenopathy. There is no goiter. There is no accessory muscle respiration use. Trachea central. MARION NGS: Is clear to auscultation percussion without any rhonchi rales or wheezing. On palpation there is no chest wall tenderness. HEART: S1-S2 is heard. There is no S3 gallop. There is no S4 gallop there is systolic murmur left sternal border and the apex there is no rub. There is no significant murmur of mitral regurgitation. THERE IS NO MURMUR OF AORTIC STENOSIS OR AORTIC REGURGITATION. Abdomen: Is obese. Nontender. There is no hepatosplenomegaly. Bowel sounds are well heard. There is no tender areas masses. EXTREMITIES: Femorals are deep. Femorals are diminished. There is no femoral bruits. Leg pulses are well felt. There is no pedal edema. There is no DVT or cellulitis. There is no calf tenderness. There is no sinus or clubbing. 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 PSYCHIATRIC: The patient judgment insight are intact his affect is normal. EKG: Shows sinus bradycardia. Right bundle branch block pattern and left intravascular block. No acute changes. Current Medications Discontinued Medications Generic Name Dose Route Start Last Admin Trade Name Freq PRN Reason Stop Dose Admin Acetaminophen 650 mg 01/06/19 11:09 01/06/19 14:46 Tylenol 325 Mg Tablet PO 02/05/19 11:08 650 mg Q6H PRN Administration FOR HEADACHE OR PAIN Gabapentin 800 mg 01/06/19 06:00 01/06/19 14:42 Neurontin 400 Mg Capsule PO 02/05/19 05:59 800 mg Q8 GAMAL Administration Heparin Sodium (Porcine) 5,000 unit 01/06/19 06:00 01/06/19 13:58 Heparin Inj 5,000 Units/Ml 1 Ml Vial SUBCUT 02/05/19 05:59 Not Given Q8 GAMAL Sodium Chloride 1,000 mls @ 0 mls/hr 01/05/19 22:31 01/06/19 00:18 Nacl 0.9% 1000 Ml Iv Soln IV 01/05/19 22:32 Infused BOLUS ONE Infusion Wide Open Ketorolac Tromethamine 15 mg 01/06/19 12:00 01/06/19 11:31 Toradol Inj/Pf 30 Mg/1 Ml Sdv IV 01/11/19 11:59 15 mg Q6 GAMAL Administration Oxycodone/Acetaminophen 1 tab 01/06/19 11:09 01/06/19 16:16 Percocet 5-325 Mg Tablet PO 01/13/19 11:08 1 tab Q4HP PRN Administration FOR PAIN Pramipexole Dihydrochloride 1 mg 01/06/19 06:00 01/06/19 14:42 Mirapex 0.5 Mg Tablet PO 02/05/19 05:59 1 mg Q8 GAMAL Administration Sodium Chloride 2.5 ml 01/06/19 06:00 01/06/19 14:42 Saline Flush 2.5 Ml Monoject Prefil Syrin IV 02/05/19 05:59 2.5 ml Q8 GAMAL Administration Labs- All tests 24 hr 01/05/19 01/05/19 01/05/19 21:54 21:54 21:54 WBC Cancelled RBC Cancelled Hgb Cancelled Hct Cancelled MCV Cancelled MCH Cancelled MCHC Cancelled RDW Cancelled Plt Count Cancelled Seg Neutrophils % Cancelled Lymphocytes % Cancelled Monocytes % Cancelled Eosinophils % Cancelled Basophils % Cancelled Absolute Neutrophils Cancelled Absolute Lymphocytes Cancelled Absolute Monocytes Cancelled Absolute Eosinophils Cancelled Absolute Basophils Cancelled Platelet Estimate Cancelled D-Dimer VBG pH VBG pCO2 VBG HCO3 VBG Base Excess Sodium 137.2 Potassium 4.3 Chloride 107 Carbon Dioxide 20 L Anion Gap 10 BUN 23 H Creatinine 1.06 Est GFR ( Amer) > 60 Est GFR (Non-Af Amer) > 60 Glucose 127 H Calcium 9.3 Total Bilirubin 0.7 Direct Bilirubin 0.3 Neonat Total Bilirubin Not Reportable Neonat Direct Bilirubin Not Reportable Neonat Indirect Bili Not Reportable AST 66 H ALT 55 Alkaline Phosphatase 74 Creatine Kinase CK-MB (CK-2) Troponin I < 0.012 NT-Pro-B Natriuret Pep Total Protein 6.2 L Albumin 3.4 L Free T3 pg/mL Urine Color Urine Appearance Urine pH Ur Specific [place] Urine Protein Urine Glucose (UA) Urine Ketones Urine Blood Urine Nitrite Urine Bilirubin Urine Urobilinogen Ur Leukocyte Esterase Urine WBC (Auto) Urine RBC (Auto) U Hyaline Cast (Auto) Squamous Epi Cells Auto Urine Mucus (Auto) Urine Ascorbic Acid Serum Alcohol < 10 Slides for Path Review Cancelled Blood Type Antibody Screen 01/05/19 01/05/19 01/05/19 21:54 22:18 23:19 WBC 7.7 RBC 3.73 L Hgb 12.9 L Hct 37.8 L MCV 101 H MCH 34.7 H MCHC 34.3 RDW 13.3 Plt Count 114 L Seg Neutrophils % 76.4 Lymphocytes % 14.1 Monocytes % 8.4 Eosinophils % 0.6 Basophils % 0.5 Absolute Neutrophils 5.9 Absolute Lymphocytes 1.1 Absolute Monocytes 0.7 Absolute Eosinophils 0.0 Absolute Basophils 0.0 Platelet Estimate D-Dimer VBG pH 7.37 VBG pCO2 39.3 VBG HCO3 22.3 VBG Base Excess -2.6 Sodium Potassium Chloride Carbon Dioxide Anion Gap BUN Creatinine Est GFR ( Amer) Est GFR (Non-Af Amer) Glucose Calcium Total Bilirubin Direct Bilirubin Neonat Total Bilirubin Neonat Direct Bilirubin Neonat Indirect Bili AST ALT Alkaline Phosphatase Creatine Kinase CK-MB (CK-2) Troponin I NT-Pro-B Natriuret Pep Total Protein Albumin Free T3 pg/mL 4.17 Urine Color Urine Appearance Urine pH Ur Specific [place] Urine Protein Urine Glucose (UA) Urine Ketones Urine Blood Urine Nitrite Urine Bilirubin Urine Urobilinogen Ur Leukocyte Esterase Urine WBC (Auto) Urine RBC (Auto) U Hyaline Cast (Auto) Squamous Epi Cells Auto Urine Mucus (Auto) Urine Ascorbic Acid Serum Alcohol Slides for Path Review Blood Type Antibody Screen 01/05/19 01/05/19 01/06/19 23:19 23:40 02:48 WBC RBC Hgb Hct MCV MCH MCHC RDW Plt Count Seg Neutrophils % Lymphocytes % Monocytes % Eosinophils % Basophils % Absolute Neutrophils Absolute Lymphocytes Absolute Monocytes Absolute Eosinophils Absolute Basophils Platelet Estimate D-Dimer VBG pH VBG pCO2 VBG HCO3 VBG Base Excess Sodium Potassium Chloride Carbon Dioxide Anion Gap BUN Creatinine Est GFR ( Amer) Est GFR (Non-Af Amer) Glucose Calcium Total Bilirubin Direct Bilirubin Neonat Total Bilirubin Neonat Direct Bilirubin Neonat Indirect Bili AST ALT Alkaline Phosphatase Creatine Kinase CK-MB (CK-2) Troponin I < 0.012 NT-Pro-B Natriuret Pep Total Protein Albumin Free T3 pg/mL Urine Color YELLOW Urine Appearance SLIGHTLY-CLOUDY Urine pH 5.0 Ur Specific [place] 1.025 Urine Protein NEGATIVE Urine Glucose (UA) NEGATIVE Urine Ketones NEGATIVE Urine Blood NEGATIVE Urine Nitrite NEGATIVE Urine Bilirubin NEGATIVE Urine Urobilinogen NEGATIVE Ur Leukocyte Esterase NEGATIVE Urine WBC (Auto) 1 Urine RBC (Auto) 0 U Hyaline Cast (Auto) 14 Squamous Epi Cells Auto <1 Urine Mucus (Auto) OCC Urine Ascorbic Acid NEGATIVE Serum Alcohol Slides for Path Review Blood Type O POSITIVE Antibody Screen NEGATIVE 01/06/19 01/06/19 01/06/19 02:48 02:48 08:50 WBC RBC Hgb Hct MCV MCH MCHC RDW Plt Count Seg Neutrophils % Lymphocytes % Monocytes % Eosinophils % Basophils % Absolute Neutrophils Absolute Lymphocytes Absolute Monocytes Absolute Eosinophils Absolute Basophils Platelet Estimate D-Dimer VBG pH VBG pCO2 VBG HCO3 VBG Base Excess Sodium 139.8 Potassium 4.4 Chloride 109 H Carbon Dioxide 24 Anion Gap 7 BUN 20 Creatinine 0.92 Est GFR ( Amer) > 60 Est GFR (Non-Af Amer) > 60 Glucose 103 Calcium 8.9 Total Bilirubin 0.4 Direct Bilirubin 0.3 Neonat Total Bilirubin Not Reportable Neonat Direct Bilirubin Not Reportable Neonat Indirect Bili Not Reportable AST 61 H ALT 57 Alkaline Phosphatase 89 Creatine Kinase 111 123 CK-MB (CK-2) 2.38 Troponin I Cancelled NT-Pro-B Natriuret Pep Total Protein 6.4 Albumin 3.5 Free T3 pg/mL Urine Color Urine Appearance Urine pH Ur Specific [place] Urine Protein Urine Glucose (UA) Urine Ketones Urine Blood Urine Nitrite Urine Bilirubin Urine Urobilinogen Ur Leukocyte Esterase Urine WBC (Auto) Urine RBC (Auto) U Hyaline Cast (Auto) Squamous Epi Cells Auto Urine Mucus (Auto) Urine Ascorbic Acid Serum Alcohol Slides for Path Review Blood Type Antibody Screen 01/06/19 01/06/19 01/06/19 08:50 11:34 11:34 WBC RBC Hgb Hct MCV MCH MCHC RDW Plt Count Seg Neutrophils % Lymphocytes % Monocytes % Eosinophils % Basophils % Absolute Neutrophils Absolute Lymphocytes Absolute Monocytes Absolute Eosinophils Absolute Basophils Platelet Estimate D-Dimer VBG pH VBG pCO2 VBG HCO3 VBG Base Excess Sodium Potassium Chloride Carbon Dioxide Anion Gap BUN Creatinine Est GFR ( Amer) Est GFR (Non-Af Amer) Glucose Calcium Total Bilirubin Direct Bilirubin Neonat Total Bilirubin Neonat Direct Bilirubin Neonat Indirect Bili AST ALT Alkaline Phosphatase Creatine Kinase 106 CK-MB (CK-2) 2.86 2.66 Troponin I < 0.012 Cancelled NT-Pro-B Natriuret Pep Total Protein Albumin Free T3 pg/mL Urine Color Urine Appearance Urine pH Ur Specific [place] Urine Protein Urine Glucose (UA) Urine Ketones Urine Blood Urine Nitrite Urine Bilirubin Urine Urobilinogen Ur Leukocyte Esterase Urine WBC (Auto) Urine RBC (Auto) U Hyaline Cast (Auto) Squamous Epi Cells Auto Urine Mucus (Auto) Urine Ascorbic Acid Serum Alcohol Slides for Path Review Blood Type Antibody Screen 01/06/19 01/06/19 11:34 11:34 WBC RBC Hgb Hct MCV MCH MCHC RDW Plt Count Seg Neutrophils % Lymphocytes % Monocytes % Eosinophils % Basophils % Absolute Neutrophils Absolute Lymphocytes Absolute Monocytes Absolute Eosinophils Absolute Basophils Platelet Estimate D-Dimer 0.33 VBG pH VBG pCO2 VBG HCO3 VBG Base Excess Sodium Potassium Chloride Carbon Dioxide Anion Gap BUN Creatinine Est GFR ( Amer) Est GFR (Non-Af Amer) Glucose Calcium Total Bilirubin Direct Bilirubin Neonat Total Bilirubin Neonat Direct Bilirubin Neonat Indirect Bili AST ALT Alkaline Phosphatase Creatine Kinase CK-MB (CK-2) Troponin I < 0.012 NT-Pro-B Natriuret Pep 111 Total Protein Albumin Free T3 pg/mL Urine Color Urine Appearance Urine pH Ur Specific [place] Urine Protein Urine Glucose (UA) Urine Ketones Urine Blood Urine Nitrite Urine Bilirubin Urine Urobilinogen Ur Leukocyte Esterase Urine WBC (Auto) Urine RBC (Auto) U Hyaline Cast (Auto) Squamous Epi Cells Auto Urine Mucus (Auto) Urine Ascorbic Acid Serum Alcohol Slides for Path Review Blood Type Antibody Screen Chest X-Ray 01/05/19 21:31 IMPRESSION: 1. Linear left basilar opacities likely related to discoid atelectasis. Head CT 01/05/19 21:31 IMPRESSION: 1. No acute intracranial abnormality by CT criteria. This exam was performed according to our departmental dose-optimization program, which includes automated exposure control, adjustment of the mA and/or kV according to patient size and/or use of iterative reconstruction technique. IMPRESSION/RECOMMENDATION: 1. Syncope: History of recurrent syncope. So far there is no evidence of any cardiac dysrhythmia although the differential diagnoses are secondary to recurrence of atrial fibrillation with rapid ventricular response versus bradyarrhythmia versus ventricular arrhythmias. Also 1 of the reason could be Mirapex which can cause chest pain and possible fainting. Hence would recommend to discontinue the patient's Mirapex. Have discussed the case with Dr. Pitts covering for Dr. Montalvo the patient's access consultant. He agrees with the plan and the patient will follow up with Dr. Montalvo for further work-up. 2. History of atrial fibrillation: Status post ablation. Clinically no recurrence, but the patient would be recommended to have a 30-day event monitor to see if the patient does have recurrence of atrial fibrillation or in view of the bifascicular block if he has any bradycardia arrhythmias causing the patient's symptoms. 3.? Parkinson's disease: Patient on Mirapex. Would leave this to the patient's primary care physician/access consultant to see if indeed the patient needs treatment for Parkinson's. 4. History of sleep apnea: The patient probably needs to wear CPAP. This again would recommend leaving this decision to the patient's primary care physician. 5. Chest pain: Patient not very descriptive about this. No evidence of acute coronary syndrome. Would recommend the patient have a Cardiolite nuclear stress testing as an outpatient. Again will leave decision to Dr. Montalvo the patient's access consultant. Medications reviewed management plan discussed with the attending provider on the case. Medical decision making is of moderate to high complexity. 60 minutes spent on this patient, with more than 50% of time spent direct patient care. Medical patient stable. Recommend discharge the patient home to follow- up with his primary care physician and his primary access consultant. Will sign off.
== END 2019-01-06 16:59 | disposition home or self-care (01) ==
LOC: ER 21:11 → EH 01-06 02:08 → 5 01-06 04:00
PROVIDERS: ADMIT Emergency Medicine; ATTEND Emergency Medicine
DX: R07.2 Precordial pain (principal); Z86.79 Personal history of other diseases of the circulatory system; G25.81 Restless legs syndrome; R55 Syncope and collapse; G47.33 Obstructive sleep apnea (adult) (pediatric); I48.0 Paroxysmal atrial fibrillation; R41.0 Disorientation, unspecified; R53.1 Weakness; R42 Dizziness and giddiness; I45.2 Bifascicular block; R00.1 Bradycardia, unspecified; R53.83 Other fatigue; G62.9 Polyneuropathy, unspecified; E66.8 Other obesity; G20 Parkinson's disease; D50.9 Iron deficiency anemia, unspecified; Z98.890 Other specified postprocedural states; Z79.899 Other long term (current) drug therapy; Z85.46 Personal history of malignant neoplasm of prostate; Z90.49 Acquired absence of other specified parts of digestive tract; Z96.643 Presence of artificial hip joint, bilateral; Z87.891 Personal history of nicotine dependence; Z82.49 Family history of ischemic heart disease and other diseases of the circulatory system; Z87.09 Personal history of other diseases of the respiratory system
CPT/HCPCS: 93005 ×2; 99285; 96360; 86900; 86901; 36415 ×2; 82553; 86850; 80307; 82550; 85025; 80053 ×2; 81001; 84484 ×2; 84481; 85379; 82803; 83880; 71045; 70450; 93010 ×2; 94660; G0378 ×2; A9270 ×4; J1644; J1885; J3490; J7030

== ENCOUNTER 2019-06-07 14:32 | Emergency (ER) | payer OTHER, MEDICARE ==
--- NOTE | 2019-06-07 16:02 | ER Document Report ---
ED Medical Screen (RME) - General Chief Complaint: Abnormal Lab Results Stated Complaint: ABNORMAL LABS Time Seen by Provider: 06/07/19 15:58 Primary Care Provider: BALTAZAR TALLEY FNP [Primary Care Provider] - Follow up as needed Information source: Patient Notes: Patient presents complaining of cough and chest pain for the past 2 weeks. Patient does report feeling lightheaded. Patient states that he was seen at the urgent care and diagnosed with a left lower lobe infiltrate and had platelets of 47 on his lab work. Patient did have an episode of rectal bleeding 3 days ago. I have greeted and performed a rapid initial assessment of this patient. A comprehensive ED assessment and evaluation of the patient, analysis of test results and completion of the medical decision making process will be conducted by additional ED providers. TRAVEL OUTSIDE OF THE [place] IN LAST 30 DAYS: No - Related Data Allergies/Adverse Reactions: diazepam [From Valium] Allergy (Verified 01/05/19 21:36) peanut Allergy (Verified 01/05/19 21:36) Past Medical History - Social History Frequency of alcohol use: Occasional Drug Abuse: None - Past Medical History Cardiac Medical History: Reports: Hx Atrial Fibrillation - Post ablation therapy., Hx Congestive Heart Failure - 10 years ago. Denies: Hx Coronary Artery Disease, Hx Heart Attack, Hx Hypercholesterolemia, Hx Hypertension Pulmonary Medical History: Reports: Hx Bronchitis, Hx Pneumonia, Hx Sleep Apnea Denies: Hx Asthma, Hx COPD, Hx Tuberculosis Neurological Medical History: Reports: Hx Migraine. Denies: Hx Seizures Endocrine Medical History: Denies: Hx Diabetes Mellitus Type 1, Hx Diabetes Mellitus Type 2, Hx Hyperthyroidism, Hx Hypothyroidism Renal/ Medical History: Denies: Hx End Stage Renal Disease, Hx Kidney Stones, Hx Peritoneal Dialysis Malignancy Medical History: Reports Hx Prostate Cancer, Reports Hx Skin Cancer GI Medical History: Reports: Hx Gastritis, Hx Gastroesophageal Reflux Disease, Hx Hiatal Hernia, Hx Irritable Bowel, Hx Ulcer, Hx Endoscopy. Denies: Hx Ci rrhosis, Hx Hepatitis Musculoskeltal Medical History: Reports Hx Arthritis, Denies Hx Gout, Reports Hx Musculoskeletal Deformity, Reports Hx Musculoskeletal Trauma Skin Medical History: Denies Hx Eczema, Denies Hx Psoriasis Psychiatric Medical History: Reports: Hx Depression Denies: Hx Attention Deficit Hyperactivity Disorder, Hx Bipolar Disorder, Hx Schizophrenia Traumatic Medical History: Reports: Hx Fractures - Nose Infectious Medical History: Denies: Hx Hepatitis Past Surgical History: Reports: Hx Adenoidectomy, Hx Cholecystectomy, Hx Genitourinary Surgery - bladder stimulater placement, Hx Nose Surgery, Hx Orthopedic Surgery - Right knee, right and left hip replacement, shoulder surgery, Hx Rectal Surgery - Hemorrhoid surgery, Hx Tonsillectomy, Other - TURP. Denies: Hx Abdominal Surgery - Immunizations Immunizations up to date: Yes Physical Exam - Vital signs Vitals: Temp Pulse Resp BP Pulse Ox 97.6 F 65 18 163/88 H 98 06/07/19 14:42 06/07/19 14:42 06/07/19 14:42 06/07/19 14:42 06/07/19 14:42 - Respiratory Respiratory status: No respiratory distress Chest status: Pain with cough Breath sounds: Nonproductive cough Chest palpation: Tender Course - Vital Signs Vital signs: Temp Pulse Resp BP Pulse Ox 97.6 F 65 18 163/88 H 98 06/07/19 14:42 06/07/19 14:42 06/07/19 14:42 06/07/19 14:42 06/07/19 14:42 Doctor's Discharge - Discharge Referrals: BALTAZAR TALLEY FNP [Primary Care Provider] - Follow up as needed
[2019-06-07 17:02] LABS: INTERNATIONAL RATION (INR) 1.05; PROTHROMBIN TIME 13.7 SEC (11.4-15.4)
[2019-06-07 17:04] LABS: PARTIAL THROMBOPLASTIN TIME 35.7 SEC (23.5-35.8)
[2019-06-07 17:14] LABS: ALBUMIN 4.3 g/dL (3.5-5.0); ALKALINE PHOSPHATASE 127 U/L (38-126); ANION GAP 7 (5-19); ASPARTATE AMINO TRANSFERASE 82 U/L (17-59); BILIRUBIN,DIRECT 0.2 mg/dL (0.0-0.4); BILIRUBIN,TOTAL 0.7 mg/dL (0.2-1.3); BLOOD UREA NITROGEN 13 mg/dL (7-20); CALCIUM 9.8 mg/dL (8.4-10.2); CARBON DIOXIDE 27 mmol/L (22-30); CHLORIDE 105 mmol/L (98-107); GLUCOSE 96 mg/dL (75-110); POTASSIUM 4.8 mmol/L (3.6-5.0); TOTAL PROTEIN 7.7 g/dL (6.3-8.2)
--- NOTE | 2019-06-07 17:45 | RADIOLOGY REPORT (SQ) ---
EXAM DESCRIPTION: CHEST 2 VIEWS COMPLETED DATE/TIME: 06/07/2019 4:17 pm REASON FOR STUDY: cp, cough COMPARISON: None. EXAM PARAMETERS: NUMBER OF VIEWS: two views TECHNIQUE: Digital Frontal and Lateral radiographic views of the chest acquired. RADIATION DOSE: NA LIMITATIONS: none FINDINGS: LUNGS AND PLEURA: I am No opacities, masses or pneumothorax. No pleural effusion. MEDIASTINUM AND HILAR STRUCTURES: No masses or contour abnormalities. HEART AND VASCULAR STRUCTURES: Heart normal size. No evidence for failure. BONES: No acute findings. HARDWARE: None in the chest. OTHER: No other significant finding. IMPRESSION: No acute cardiopulmonary disease. Hyperinflated lung seen with obstructive lung disease . TECHNICAL DOCUMENTATION: JOB ID: [id number] [facility]- All Rights Reserved Reading location - IP/workstation name: [email or web address]
[2019-06-07 19:10] LABS: ABSOLUTE EOSINOPHILS # (AUTO) 0.2 10^3/uL (0.0-0.6); ABSOLUTE LYMPHOCYTES (AUTO) 1.3 10^3/uL (0.5-4.7); ABSOLUTE MONOCYTES (AUTO) 0.5 10^3/uL (0.1-1.4); ABSOLUTE NEUT (AUTO) 4.1 10^3/uL (1.7-8.2); BASOPHILS % (AUTO) 0.5 % (0-2); EOSINOPHILS % (AUTO) 2.5 % (0-6); HEMATOCRIT 38.1 % (37.9-51.0); HEMOGLOBIN 13.2 g/dL (13.5-17.0); LYMPHOCYTES % (AUTO) 21.8 % (13-45); MEAN CORPUSCULAR HEMOGLOBIN 35.3 pg (27.0-33.4); MEAN CORPUSCULAR HGB CONC 34.7 g/dL (32.0-36.0); MEAN CORPUSCULAR VOLUME 102 fl (80-97); MONOCYTES % (AUTO) 8.6 % (3-13); RED BLOOD COUNT 3.74 10^6/uL (4.35-5.55); RED CELL DISTRIBUTION WIDTH 13.7 % (11.5-14.0); SEGMENTED NEUTROPHILS % (AUTO) 66.6 % (42-78); TOTAL CELLS COUNTED % (AUTO) 100 %; WHITE BLOOD COUNT 6.1 10^3/uL (4.0-10.5)
[2019-06-07 19:11] LABS: PLATELET COUNT 130 10^3/uL (150-450)
[2019-06-07] MEDS ORDERED: GABAPENTIN 400 MG CAPSULE PO ONE (19:34)
[2019-06-07] MEDS ORDERED: TRAMADOL HCL 50 MG TABLET PO ONE (19:34)
--- NOTE | 2019-06-07 20:00 | ER Document Report ---
ED General - General Chief Complaint: Abnormal Lab Results Stated Complaint: ABNORMAL LABS Time Seen by Provider: 06/07/19 15:58 Primary Care Provider: IGNACIA NGUYEN MD [ACTIVE STAFF] - Follow up in 1 week BALTAZAR TALLEY FNP [Primary Care Provider] - Follow up in 3-5 days TRAVEL OUTSIDE OF THE [place] IN LAST 30 DAYS: No - HPI Notes: 74 year old male to the ED with C/O abnormal lab results. Patient states he was sent over to the ED for low platelet count -- states he was told that the level was 47. States that he went to see his doctor because he has had a persistent cough for the past several weeks that wouldn't go away. States that when he got to the doctor, he also told her that he seen two episodes of blood streaked stool on Tuesday. He denies being on a blood thinner. Denies chest pain, SOB, leg swelling. Patient does admit that he has been having chest pain every time he coughs and takes a deep breath. Denies SOB, Denies passing out. - Related Data Allergies/Adverse Reactions: diazepam [From Valium] Allergy (Verified 01/05/19 21:36) peanut Allergy (Verified 01/05/19 21:36) Past Medical History - General Information source: Patient - Social History Smoking Status: Former Smoker Frequency of alcohol use: Occasional Drug Abuse: None Lives with: Spouse/Significant other Family History: Reviewed & Not Pertinent Patient has suicidal ideation: No Patient has homicidal ideation: No - Past Medical History Cardiac Medical History: Reports: Hx Atrial Fibrillation - Post ablation therapy., Hx Congestive Heart Failure - 10 years ago. Denies: Hx Coronary Artery Disease, Hx Heart Attack, Hx Hypercholesterolemia, Hx Hypertension Pulmonary Medical History: Reports: Hx Bronchitis, Hx Pneumonia, Hx Sleep Apnea Denies: Hx Asthma, Hx COPD, Hx Tuberculosis Neurological Medical History: Reports: Hx Migraine. Denies: Hx Seizures Endocrine Medical History: Denies: Hx Diabetes Mellitus Type 1, Hx Diabetes Mellitus Type 2, Hx Hyperthyroidism, Hx Hypothyroidism Renal/ Medical History: Denies: Hx End Stage Renal Disease, Hx Kidney Stones, Hx Peritoneal Dialysis Malignancy Medical History: Reports Hx Prostate Cancer, Reports Hx Skin Cancer GI Medical History: Reports: Hx Gastritis, Hx Gastroesophageal Reflux Disease, Hx Hiatal Hernia, Hx Irritable Bowel, Hx Ulcer, Hx Endoscopy. Denies: Hx Cirrhosis, Hx Hepatitis Musculoskeletal Medical History: Reports Hx Arthritis, Denies Hx Gout, Reports Hx Musculoskeletal Deformity, Reports Hx Musculoskeletal Trauma Skin Medical History: Denies Hx Eczema, Denies Hx Psoriasis Psychiatric Medical History: Reports: Hx Depression Denies: Hx Attention Deficit Hyperactivity Disorder, Hx Bipolar Disorder, Hx Schizophrenia Traumatic Medical History: Reports: Hx Fractures - Nose Infectious Medical History: Denies: Hx Hepatitis Past Surgical History: Reports: Hx Adenoidectomy, Hx Cholecystectomy, Hx Genitourinary Surgery - bladder stimulater placement, Hx Nose Surgery, Hx Orthopedic Surgery - Right knee, right and left hip replacement, shoulder surgery, Hx Rectal Surgery - Hemorrhoid surgery, Hx Tonsillectomy, Other - TURP. Denies: Hx Abdominal Surgery - Immunizations Immunizations up to date: Yes Review of Systems - Review of Systems Constitutional: denies: Chills, Fever EENT: No symptoms reported Cardiovascular: See HPI, Chest pain. denies: Palpitations, Dyspnea, Syncope, Dizziness Respiratory: Cough. denies: Hemoptysis, Short of breath Gastrointestinal: denies: Abdominal pain, Diarrhea, Nausea, Vomiting Genitourinary: No symptoms reported Male Genitourinary: No symptoms reported Musculoskeletal: No symptoms reported Skin: No symptoms reported Hematologic/Lymphatic: No symptoms reported Neurological/Psychological: No symptoms reported -: Yes All other systems reviewed and negative Physical Exam - Vital signs Vitals: Temp Pulse Resp BP Pulse Ox 97.6 F 65 18 163/88 H 98 06/07/19 14:42 06/07/19 14:42 06/07/19 14:42 06/07/19 14:42 06/07/19 14:42 Interpretation: Normal - General General appearance: Appears well, Alert - HEENT Head: Normocephalic, Atraumatic Eyes: Normal Pupils: PERRL - Respiratory Respiratory status: No respiratory distress Chest status: Nontender Breath sounds: Normal. No: Rales, Rhonchi, Stridor, Wheezing Chest palpation: Normal - Cardiovascular Rhythm: Regular Heart sounds: Normal auscultation Murmur: No Notes: no leg edema - Abdominal Inspection: Normal Distension: No distension Bowel sounds: Normal Tenderness: Nontender Organomegaly: No organomegaly - Back Back: Normal, Nontender. No: CVA tenderness - Extremities General upper extremity: Normal inspection, Nontender, Normal color, Normal ROM, Normal temperature General lower extremity: Normal inspection, Nontender, Normal color, Normal ROM, Normal temperature, Normal weight bearing. No: Tomas's sign - Neurological Neuro grossly intact: Yes Cognition: Normal Orientation: AAOx4 Italo Coma Scale Eye Opening: Spontaneous [place] Coma Scale Verbal: Oriented Parks Coma Scale Motor: Obeys Commands Parks Coma Scale Total: 15 Speech: Normal Cranial nerves: Normal. No: Facial palsy Cerebellar coordination: Normal. 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 No: Pronator drift Sensory: Normal - Psychological Associated symptoms: Normal affect, Normal mood - Skin Skin Temperature: Warm Skin Moisture: Dry Skin Color: Normal Course - Re-evaluation Re-evalutation: fecal occult was negative and platelet count here is 130. No platelet transfusion at this time. We will plan to have patient follow up closely with PCP. Encouraged to return immediately if worsening symptoms such as cuca hematemesis. patient does have restless leg and usually takes gabapentin and tramadol for his pain. Patient does report chest pain with cough and mild SOB. Labs looks reassuring. Imaging studies are WNL. - Vital Signs Vital signs: Temp Pulse Resp BP Pulse Ox 98.5 F 65 15 145/72 H 95 06/07/19 20:32 06/07/19 14:42 06/07/19 20:25 06/07/19 20:25 06/07/19 20:25 - Laboratory Result Diagrams: 06/07/19 19:02 06/07/19 16:26 Laboratory results interpreted by me: 06/07/19 06/07/19 16:26 19:02 RBC 3.74 L Hgb 13.2 L MCV 102 H MCH 35.3 H Plt Count 130 L AST 82 H Alkaline Phosphatase 127 H - Diagnostic Test Radiology reviewed: Image reviewed, Reports reviewed - EKG Interpretation by Me Additional EKG results interpreted by me: 06/07/19 rate 82, rhythm: sinus, no STEMI, +RBBB, t wave inversions in aVL and V2, + PVC, no sigficant change from prior on 01/06/19 Discharge - Discharge Clinical Impression: Thrombocytopenia, Rectal bleeding, Costochondritis Condition: Stable Disposition: HOME, SELF-CARE Instructions: Rectal Bleeding, Unclear Cause ([facility]), Thrombocytopenia ([facility]) Additional Instructions: FOLLOW UP WITH GI SPECIALIST. RETURN IMMEDIATELY IF SYMPTOMS WORSEN - SUCH MORE RECTAL BLEEDING, PASSING OUT. PUSH FLUIDS. CONTINUE YOUR NEURONTIN AND TRAMADOL. FOLLOW UP WITH PRIMARY CARE TOMORROW. Prescriptions: Methylprednisolone [Medrol Dosepack (4 mg/Tab) 21 Tab/Dosepak] 4 mg PO ASDIR PRN #[id number] PRN Reason: Referrals: BALTAZAR TALLEY FNP [Primary Care Provider] - Follow up in 3-5 days IGNACIA NGUYEN MD [ACTIVE STAFF] - Follow up in 1 week
[2019-06-07 20:32] VITALS: BP 145/72
--- NOTE | 2019-06-07 21:59 | EKG REPORT ---
SEVERITY:- ABNORMAL ECG - SINUS RHYTHM VENTRICULAR PREMATURE COMPLEX RIGHT BUNDLE BRANCH BLOCK PROBABLE ANTEROSEPTAL INFARCT, AGE INDETERM : Confirmed by: Heidy Basurto 07-Jun-2019 21:57:33
== END 2019-06-07 20:36 | disposition home or self-care (01) ==
LOC: ER 14:32
DX: D69.6 Thrombocytopenia, unspecified (principal); K62.5 Hemorrhage of anus and rectum; M94.0 Chondrocostal junction syndrome [Tietze]; I48.91 Unspecified atrial fibrillation; I50.9 Heart failure, unspecified; Z90.49 Acquired absence of other specified parts of digestive tract; Z96.643 Presence of artificial hip joint, bilateral; Z96.651 Presence of right artificial knee joint
CPT/HCPCS: 36415; 71046; 80053; 84484; 85025; 85610; 85730; 86850; 86900; 86901; 87040; 93005; 93010; 99284

== ENCOUNTER 2019-06-14 15:47 | Emergency (ER) | payer OTHER, MEDICARE ==
--- NOTE | 2019-06-14 16:30 | RADIOLOGY REPORT (SQ) ---
EXAM DESCRIPTION: CHEST SINGLE VIEW COMPLETED DATE/TIME: 06/14/2019 4:18 pm REASON FOR STUDY: bed 5 db COMPARISON: 06/07/2019 EXAM PARAMETERS: NUMBER OF VIEWS: One view. TECHNIQUE: Single frontal radiographic view of the chest acquired. RADIATION DOSE: NA LIMITATIONS: None. FINDINGS: LUNGS AND PLEURA: No opacities, masses or pneumothorax. No pleural effusion. MEDIASTINUM AND HILAR STRUCTURES: No masses. Contour normal. HEART AND VASCULAR STRUCTURES: Heart normal in size. Normal vasculature. BONES: No acute findings. HARDWARE: None in the chest. OTHER: No other significant finding. IMPRESSION: NO ACUTE RADIOGRAPHIC FINDING IN THE CHEST. TECHNICAL DOCUMENTATION: JOB ID: [id number]- All Rights Reserved Reading location - IP/workstation name: [email or web address]
[2019-06-14 17:22] LABS: APPEARANCE,URINE CLEAR; BILIRUBIN,URINE NEGATIVE (NEGATIVE); COLOR,URINE YELLOW; GLUCOSE, URINE NEGATIVE (NEGATIVE); KETONES,URINE NEGATIVE (NEGATIVE); LEUKOCYTE ESTERASE,URINE NEGATIVE (NEGATIVE); NITRITE,URINE NEGATIVE (NEGATIVE); PROTEIN,URINE NEGATIVE (NEGATIVE); URINE SPECIFIC GRAVITY 1.017; UROBILINOGEN,URINE NEGATIVE mg/dL (<2.0)
--- NOTE | 2019-06-14 17:55 | ER Document Report ---
ED Medical Screen (RME) - General Chief Complaint: Shortness Of Breath Stated Complaint: SHORTNESS OF BREATH Time Seen by Provider: 06/14/19 17:39 Primary Care Provider: BALTAZAR TALLEY FNP [Primary Care Provider] - Follow up as needed Mode of Arrival: Ambulatory Information source: Patient Notes: 74-year-old male patient presenting to the emergency department with complaints of shortness of breath and persistent cough. Patient reports the cough has been ongoing for greater than 1 month. He states he has seen his primary care without relief. He further states he was seen in this emergency department approximately 1 week ago without relief. He states that breathing treatments do not help. Patient is not on any antihypertensives. is requesting adm ission to the hospital stating that the cough has become so persistent that patient is having difficulty with even the basic activities of daily living. Patient is both speaking in full and complete sentences and is not in any acute respiratory distress. I have greeted and performed a rapid initial assessment of this patient. A comprehensive ED assessment and evaluation of the patient, analysis of test results and completion of the medical decision making process will be conducted by additional ED providers. I have specifically instructed the patient or family members with the patient to immediately return to any nursing staff should anything change in the patient's condition or with their chief complaint. TRAVEL OUTSIDE OF THE [place] IN LAST 30 DAYS: No - Related Data Allergies/Adverse Reactions: diazepam [From Valium] Allergy (Verified 01/05/19 21:36) peanut Allergy (Verified 01/05/19 21:36) Past Medical History - Past Medical History Cardiac Medical History: Reports: Hx Atrial Fibrillation - Post ablation therapy., Hx Congestive Heart Failure - 10 years ago. Denies: Hx Coronary Artery Disease, Hx Heart Attack, Hx Hypercholesterolemia, Hx Hypertension Pulmonary Medical History: Reports: Hx Bronchitis, Hx Pneumonia, Hx Sleep Apnea Denies: Hx Asthma, Hx COPD, Hx Tuberculosis Neurological Medical History: Reports: Hx Migraine. Denies: Hx Seizures Endocrine Medical History: Denies: Hx Diabetes Mellitus Type 1, Hx Diabetes Mellitus Type 2, Hx Hyperthyroidism, Hx Hypothyroidism Renal/ Medical History: Denies: Hx End Stage Renal Disease, Hx Kidney Stones, Hx Peritoneal Dialysis Malignancy Medical History: Reports Hx Prostate Cancer, Reports Hx Skin Cancer GI Medical History: Reports: Hx Gastritis, Hx Gastroesophageal Reflux Disease, Hx Hiatal Hernia, Hx Irritable Bowel, Hx Ulcer, Hx Endoscopy. Denies: Hx Cirrhosis, Hx Hepatitis Musculoskeltal Medical History: Reports Hx Arthritis, Denies Hx Gout, Reports Hx Musculoskeletal Deformity, Reports Hx Musculoskeletal Trauma Skin Medical History: Denies Hx Eczema, Denies Hx Psoriasis Psychiatric Medical History: Reports: Hx Depression Denies: Hx Attention Deficit Hyperactivity Disorder, Hx Bipolar Disorder, Hx Schizophrenia Traumatic Medical History: Reports: Hx Fractures - Nose Infectious Medical History: Denies: Hx Hepatitis Past Surgical History: Reports: Hx Adenoidectomy, Hx Cholecystectomy, Hx Genitourinary Surgery - bladder stimulater placement, Hx Nose Surgery, Hx Orthopedic Surgery - Right knee, right and left hip replacement, shoulder surgery, Hx Rectal Surgery - Hemorrhoid surgery, Hx Tonsillectomy, Other - TURP. Denies: Hx Abdominal Surgery - Immunizations Immunizations up to date: Yes Physical Exam - Vital signs Vitals: Temp BP 97.5 F 160/98 H 06/14/19 15:54 06/14/19 15:54 Course - Vital Signs Vital signs: Temp Pulse Resp BP Pulse Ox 97.5 F 18 116/61 94 06/14/19 15:54 06/14/19 17:03 06/14/19 17:03 06/14/19 17:03 - Laboratory Result Diagrams: 06/14/19 16:13 06/14/19 16:13 Doctor's Discharge - Discharge Referrals: BALTAZAR TALLEY FNP [Primary Care Provider] - Follow up as needed
[2019-06-14 18:25] LABS: ABSOLUTE BASOPHILS # (AUTO) 0.1 10^3/uL (0.0-0.2); ABSOLUTE LYMPHOCYTES (AUTO) 1.4 10^3/uL (0.5-4.7); ABSOLUTE MONOCYTES (AUTO) 0.7 10^3/uL (0.1-1.4); ABSOLUTE NEUT (AUTO) 6.6 10^3/uL (1.7-8.2); BASOPHILS % (AUTO) 1.5 % (0-2); EOSINOPHILS % (AUTO) 0.5 % (0-6); HEMATOCRIT 35.2 % (37.9-51.0); HEMOGLOBIN 12.2 g/dL (13.5-17.0); LYMPHOCYTES % (AUTO) 16.1 % (13-45); MEAN CORPUSCULAR HEMOGLOBIN 35.5 pg (27.0-33.4); MEAN CORPUSCULAR HGB CONC 34.6 g/dL (32.0-36.0); MEAN CORPUSCULAR VOLUME 103 fl (80-97); MONOCYTES % (AUTO) 8.1 % (3-13); PLATELET COUNT 109 10^3/uL (150-450); RED BLOOD COUNT 3.43 10^6/uL (4.35-5.55); RED CELL DISTRIBUTION WIDTH 14.1 % (11.5-14.0); SEGMENTED NEUTROPHILS % (AUTO) 73.8 % (42-78); TOTAL CELLS COUNTED % (AUTO) 100 %; WHITE BLOOD COUNT 8.9 10^3/uL (4.0-10.5)
[2019-06-14 18:32] LABS: VENOUS BLOOD BASE EXCESS 0.6 mmol/L; VENOUS BLOOD HCO3 23.7 mmol/L (20-32); VENOUS BLOOD PCO2 33.6 mmHg (35-63); VENOUS BLOOD PH 7.47 (7.30-7.42)
[2019-06-14] MEDS ORDERED: BENZONATATE 100 MG CAPSULE PO ONE (18:43)
[2019-06-14 18:57] LABS: ALBUMIN 3.1 g/dL (3.5-5.0); ALKALINE PHOSPHATASE 75 U/L (38-126); ANION GAP 9 (5-19); ASPARTATE AMINO TRANSFERASE 49 U/L (17-59); BILIRUBIN,DIRECT 0.3 mg/dL (0.0-0.4); BILIRUBIN,TOTAL 0.5 mg/dL (0.2-1.3); BLOOD UREA NITROGEN 18 mg/dL (7-20); CALCIUM 9.1 mg/dL (8.4-10.2); CARBON DIOXIDE 22 mmol/L (22-30); CHLORIDE 107 mmol/L (98-107); GLUCOSE 103 mg/dL (75-110); POTASSIUM 3.5 mmol/L (3.6-5.0)
[2019-06-14] MEDS ORDERED: HYDROCODONE BIT/HOMATROPINE SYRUP 5 ML UDCUP PO ONE (22:16)
[2019-06-14] MEDS ORDERED: HYDROCODONE BIT/HOMATROPINE 5-1.5 MG TABLET PO ONE (22:30)
[2019-06-14] MEDS ORDERED: LEVOFLOXACIN 750 MG/D5W RTU 750 MG/150 ML RTUPB IV SCH (22:30)
[2019-06-14] MEDS ORDERED: CYANOCOBALAMIN (VITAMIN B-12) INJ 1000 MCG/1 ML VIAL IM ONE (22:51)
--- NOTE | 2019-06-14 22:53 | ER Document Report ---
ED General - General Chief Complaint: Shortness Of Breath Stated Complaint: SHORTNESS OF BREATH Time Seen by Provider: 06/14/19 17:39 Primary Care Provider: BALTAZAR TALLEY FNP [Primary Care Provider] - Follow up as needed Mode of Arrival: Ambulatory Information source: Patient, Relative - Notes: 74-year-old male rise with his with a 1 month history of nonproductive cough with paroxysmal cough. He has had influenza 2 times over the last 2 months. Patient denies any chest pain or hemoptysis or trauma fever chills myalgias back referral neck referral cephalgia nuchal rigidity skin rash TRAVEL OUTSIDE OF THE [place] IN LAST 30 DAYS: No - HPI Onset: Other - Month ago. Patient has seen his personal doctor Dr. Baltazar Powell twice at her clinic. - Related Data Allergies/Adverse Reactions: diazepam [From Valium] Allergy (Verified 01/05/19 21:36) peanut Allergy (Verified 01/05/19 21:36) Past Medical History - General Information source: Patient - Social History Smoking Status: Unknown if Ever Smoked Cigarette use (# per day): No Chew tobacco use (# tins/day): No Smoking Education Provided: No Family History: Reviewed & Not Pertinent Patient has suicidal ideation: No Patient has homicidal ideation: No - Past Medical History Cardiac Medical History: Reports: Hx Atrial Fibrillation - Post ablation therapy., Hx Congestive Heart Failure - 10 years ago. Denies: Hx Coronary Artery Disease, Hx Heart Attack, Hx Hypercholesterolemia, Hx Hypertension Pulmonary Medical History: Reports: Hx Bronchitis, Hx Pneumonia, Hx Sleep Apnea Denies: Hx Asthma, Hx COPD, Hx Tuberculosis Neurological Medical History: Reports: Hx Migraine. Denies: Hx Seizures Endocrine Medical History: Denies: Hx Diabetes Mellitus Type 1, Hx Diabetes Mellitus Type 2, Hx Hyperthyroidism, Hx Hypothyroidism Renal/ Medical History: Denies: Hx End Stage Renal Disease, Hx Kidney Stones, Hx Peritoneal Dialysis Malignancy Medical History: Reports Hx Prostate Cancer, Reports Hx Skin Cancer GI Medical History: Reports: Hx Gastritis, Hx Gastroesophageal Reflux Disease, Hx Hiatal Hernia, Hx Irritable Bowel, Hx Ulcer, Hx Endoscopy. Denies: Hx Cirrhosis, Hx Hepatitis Musculoskeletal Medical History: Reports Hx Arthritis, Denies Hx Gout, Reports Hx Musculoskeletal Deformity, Reports Hx Musculoskeletal Trauma Skin Medical History: Denies Hx Eczema, Denies Hx Psoriasis Psychiatric Medical History: Reports: Hx Depression Denies: Hx Attention Deficit Hyperactivity Disorder, Hx Bipolar Disorder, Hx Schizophrenia Traumatic Medical History: Reports: Hx Fractures - Nose Infectious Medical History: Denies: Hx Hepatitis Past Surgical History: Reports: Hx Adenoidectomy, Hx Cholecystectomy, Hx Genitourinary Surgery - bladder stimulater placement, Hx Nose Surgery, Hx Orthopedic Surgery - Right knee, right and left hip replacement, shoulder surgery, Hx Rectal Surgery - Hemorrhoid surgery, Hx Tonsillectomy, Other - TURP. Denies: Hx Abdominal Surgery - Immunizations Immunizations up to date: Yes Review of Systems - Review of Systems Constitutional: Weakness EENT: Nose congestion Cardiovascular: No symptoms reported Respiratory: Cough, Sputum - clear sputum Gastrointestinal: No symptoms reported Genitourinary: No symptoms reported Physical Exam - Vital signs Vitals: Temp BP 97.5 F 160/98 H 06/14/19 15:54 06/14/19 15:54 Interpretation: Hypotensive. No: Normal - General General appearance: Appears well - Patient very talkative and is a actual good historian In distress: None - Respiratory Respiratory status: No respiratory distress Chest status: Pain with cough Breath sounds: Productive cough Chest palpation: Other - Clear sputum Course - Vital Signs Vital signs: Temp Pulse Resp BP Pulse Ox 98.2 F 16 124/67 95 06/15/19 00:00 06/15/19 00:01 06/15/19 00:00 06/15/19 00:01 - Laboratory Result Diagrams: 06/14/19 18:10 06/14/19 18:10 Laboratory results interpreted by me: 06/14/19 06/14/19 06/14/19 18:10 18:10 18:10 RBC 3.43 L Hgb 12.2 L Hct 35.2 L MCV 103 H MCH 35.5 H RDW 14.1 H Plt Count 109 L VBG pH 7.47 H VBG pCO2 33.6 L Potassium 3.5 L Total Protein 6.0 L Albumin 3.1 L - Diagnostic Test Radiology reviewed: Reports reviewed Critical Care Note - Critical Care Note Total time excluding time spent on procedures (mins): 60 Comments: Patient received IV Levaquin and p.o. Hycodan Discharge - Discharge Clinical Impression: Bronchitis Condition: Good Disposition: HOME, SELF-CARE Additional Instructions: Follow-up with personal doctor this week return to ER as needed for true emergencies take medicines as directed Prescriptions: Hydrocodone Bit/Homatropine [Hycodan Syrup 5-1.5 mg/5 ml Ud Cup] 5 ml PO TID #120 ml Levofloxacin [Levaquin 750 mg Tablet] 750 mg PO DAILY #10 tablet Referrals: BALTAZAR TALLEY FNP [Primary Care Provider] - Follow up as needed
--- NOTE | 2019-06-14 23:28 | EKG REPORT ---
SEVERITY:- ABNORMAL ECG - SINUS RHYTHM ATRIAL PREMATURE COMPLEX RIGHT BUNDLE BRANCH BLOCK LVH WITH IVCD AND SECONDARY REPOL ABNRM : Confirmed by: Tiff Morales MD 14-Jun-2019 23:28:27
[2019-06-15 00:15] VITALS: BP 124/67
== END 2019-06-15 00:15 | disposition home or self-care (01) ==
LOC: ER 15:47
DX: J40 Bronchitis, not specified as acute or chronic (principal); R05 Cough; R09.81 Nasal congestion; R53.1 Weakness; Z88.8 Allergy status to other drugs, medicaments and biological substances; Z91.010 Allergy to peanuts
CPT/HCPCS: 93005; 99291; 96372; 96365; 96366; 36415; 87040; 85025; 87077; 80053; 81001; 84484; 87186; 82803; 71045; 93010; J3420; J1956

== ENCOUNTER 2019-07-20 14:16 | Emergency (ER) | payer MEDICARE, OTHER ==
--- NOTE | 2019-07-20 14:46 | ER Document Report ---
ED Respiratory Problem - General Chief Complaint: Cough Stated Complaint: COUGH,DIFFICULTY BREATHING Time Seen by Provider: 07/20/19 14:32 Primary Care Provider: BALTAZAR TALLEY FNP [Primary Care Provider] - Follow up as needed Mode of Arrival: Ambulatory Information source: Patient Notes: 74-year-old male presents to the emergency department with a two-week history of cough, shortness of breath and dyspnea on exertion. He was seen as an outpatient and evaluated diagnosed with COPD given inhalers, antibiotics and cough medication patient states that he is getting worse and he was sent to the emergency department from the [place] [facility]. TRAVEL OUTSIDE OF THE [place] IN LAST 30 DAYS: No - Related Data Allergies/Adverse Reactions: diazepam [From Valium] Allergy (Verified 01/05/19 21:36) peanut Allergy (Verified 01/05/19 21:36) Past Medical History - Social History Smoking Status: Unknown if Ever Smoked Family History: Reviewed & Not Pertinent - Past Medical History Cardiac Medical History: Reports: Hx Atrial Fibrillation - Post ablation therapy., Hx Congestive Heart Failure - 10 years ago. Denies: Hx Coronary Artery Disease, Hx Heart Attack, Hx Hypercholesterolemia, Hx Hypertension Pulmonary Medical History: Reports: Hx Bronchitis, Hx Pneumonia, Hx Sleep Apnea Denies: Hx Asthma, Hx COPD, Hx Tuberculosis Neurological Medical History: Reports: Hx Migraine. Denies: Hx Seizures Endocrine Medical History: Denies: Hx Diabetes Mellitus Type 1, Hx Diabetes Mellitus Type 2, Hx Hyperthyroidism, Hx Hypothyroidism Renal/ Medical History: Denies: Hx End Stage Renal Disease, Hx Kidney Stones, Hx Peritoneal Dialysis Malignancy Medical History: Reports Hx Prostate Cancer, Reports Hx Skin Cancer GI Medical History: Reports: Hx Gastritis, Hx Gastroesophageal Reflux Disease, Hx Hiatal Hernia, Hx Irritable Bowel, Hx Ulcer, Hx Endoscopy. Denies: Hx Cirrhosis, Hx Hepatitis Musculoskeletal Medical History: Reports Hx Arthritis, Denies Hx Gout, Reports Hx Musculoskeletal Deformity, Reports Hx Musculoskeletal Trauma Skin Medical History: Denies Hx Eczema, Denies Hx Psoriasis Psychiatric Medical History: Reports: Hx Depression Denies: Hx Attention Deficit Hyperactivity Disorder, Hx Bipolar Disorder, Hx Schizophrenia Traumatic Medical History: Reports: Hx Fractures - Nose Infectious Medical History: Denies: Hx Hepatitis Past Surgical History: Reports: Hx Adenoidectomy, Hx Cholecystectomy, Hx Genitourinary Surgery - bladder stimulater placement, Hx Nose Surgery, Hx Orthopedic Surgery - Right knee, right and left hip replacement, shoulder surgery, Hx Rectal Surgery - Hemorrhoid surgery, Hx Tonsillectomy, Other - TURP. Denies: Hx Abdominal Surgery - Immunizations Immunizations up to date: Yes Review of Systems - Review of Systems Notes: Constitutional: Negative for fever. HENT: Negative for sore throat. Eyes: Negative for visual changes. Cardiovascular: Negative for chest pain. Respiratory: + Cough, + shortness of breath. Gastrointestinal: Negative for abdominal pain, vomiting or diarrhea. Genitourinary: Negative for dysuria. Musculoskeletal: + Myalgia. Skin: Negative for rash. Neurological: Negative for headaches, weakness or numbness. 10 point ROS negative except as marked above and in HPI. Physical Exam - Vital signs Vitals: Resp Pulse Ox 36 H 95 07/20/19 14:31 07/20/19 14:31 - Notes Notes: PHYSICAL EXAMINATION: Physical Exam: General: Well-nourished well-developed 74-year-old man in no acute distress HEENT: NC/AT, pupils equal round and reactive to light, MM moist,nares clear, oropharynx clear, airway patent Neck: supple, no adenopathy, no masses. Good range of motion Lungs: clear, no wheezing, no rales no rhonchi CVS: Regular rate and rhythm no murmur gallop or rub Abdomen: Soft, active, nontender, no masses, no hepatosplenomegaly Ext: No edema, clubbing or cyanosis. Neuro: Alert and responsive, moving all 4 extremities on command, cranial nerves intact, no focal findings Skin: Intact no open lesions, no rash PSYCH: Normal mood, normal affect. Course - Re-evaluation Re-evalutation: 07/20/19 19:14 Patient with cough and sent to the emergency department for further evaluation, CTA of the chest was negative for pulmonary embolus or infiltrative process. I have explained to the patient and his that he likely has a viral bronchitis. We will prescribe a medication for the cough and discharged him home. They appeared to be satisfied with that plan and are in agreement. - Vital Signs Vital signs: Temp Pulse Resp BP Pulse Ox 98.2 F 81 19 146/82 H 97 07/20/19 19:49 07/20/19 19:49 07/20/19 19:49 07/20/19 19:49 07/20/19 19:49 - Laboratory Result Diagrams: 07/20/19 17:15 07/20/19 13:04 Laboratory results interpreted by me: 07/20/19 07/20/19 13:04 17:15 RBC 3.65 L Hgb 13.1 L Hct 36.9 L MCV 101 H MCH 35.9 H Plt Count 108 L AST 67 H ALT 61 H I have reviewed laboratory data and used this information for the treatment decisions regarding the patient. - Diagnostic Test Radiology reviewed: Image reviewed, Reports reviewed - CTA chest: No pulmonary embolus, no infiltrate or effusion. Discharge - Discharge Clinical Impression: Cough Upper respiratory tract infection Qualifiers: URI type: unspecified URI Qualified Code(s): J06.9 - Acute upper respiratory infection, unspecified Condition: Good Disposition: HOME, SELF-CARE Instructions: Cough Suppressant & Expectorant Medications, Upper Respiratory Illness ([facility]) Additional Instructions: You are diagnosed with upper respiratory tract infection with cough symptoms. Prescription for a cough medication is prescribed promethazine DM, please use the medication 1 to 2 teaspoons every 6 hours as needed for cough. You may also continue your Tessalon Perle cough medication which was prescribed by your doctor. Prescriptions: Promethazine/Dextromethorphan [Promethazine-Dm Solution] 5 ml PO Q4 #10 syrup Referrals: BALTAZAR TALLEY FNP [Primary Care Provider] - Follow up as needed
[2019-07-20 15:46] LABS: ALBUMIN 3.8 g/dL (3.5-5.0); ALKALINE PHOSPHATASE 93 U/L (38-126); ANION GAP 10 (5-19); ASPARTATE AMINO TRANSFERASE 67 U/L (17-59); BILIRUBIN,DIRECT 0.3 mg/dL (0.0-0.4); BILIRUBIN,TOTAL 0.9 mg/dL (0.2-1.3); BLOOD UREA NITROGEN 17 mg/dL (7-20); CALCIUM 9.4 mg/dL (8.4-10.2); CARBON DIOXIDE 22 mmol/L (22-30); CHLORIDE 107 mmol/L (98-107); GLUCOSE 94 mg/dL (75-110); POTASSIUM 3.8 mmol/L (3.6-5.0); TOTAL PROTEIN 7.1 g/dL (6.3-8.2)
[2019-07-20] MEDS ORDERED: GUAIFENESIN/D-METHORPHAN (200-20 MG) SYRUP 10 ML PO ONE (16:18)
[2019-07-20 16:32] LABS: A TYPE INFLUENZA AG NEGATIVE (NEGATIVE); B INFLUENZA AG NEGATIVE (NEGATIVE)
[2019-07-20 17:48] LABS: ABSOLUTE LYMPHOCYTES (AUTO) 1.4 10^3/uL (0.5-4.7); ABSOLUTE MONOCYTES (AUTO) 0.8 10^3/uL (0.1-1.4); ABSOLUTE NEUT (AUTO) 5.5 10^3/uL (1.7-8.2); BASOPHILS % (AUTO) 0.6 % (0-2); EOSINOPHILS % (AUTO) 0.6 % (0-6); HEMATOCRIT 36.9 % (37.9-51.0); HEMOGLOBIN 13.1 g/dL (13.5-17.0); MEAN CORPUSCULAR HEMOGLOBIN 35.9 pg (27.0-33.4); MEAN CORPUSCULAR HGB CONC 35.6 g/dL (32.0-36.0); MEAN CORPUSCULAR VOLUME 101 fl (80-97); MONOCYTES % (AUTO) 10.7 % (3-13); RED BLOOD COUNT 3.65 10^6/uL (4.35-5.55); RED CELL DISTRIBUTION WIDTH 13.2 % (11.5-14.0); SEGMENTED NEUTROPHILS % (AUTO) 70.1 % (42-78); TOTAL CELLS COUNTED % (AUTO) 100 %; WHITE BLOOD COUNT 7.8 10^3/uL (4.0-10.5)
[2019-07-20 17:50] LABS: PLATELET COUNT 108 10^3/uL (150-450)
[2019-07-20] MEDS ORDERED: GABAPENTIN 300 MG CAPSULE PO ONE ×2 (18:06→18:27)
[2019-07-20] MEDS ORDERED: AMITRIPTYLINE HCL 25 MG TABLET PO ONE (18:07)
--- NOTE | 2019-07-20 18:21 | RADIOLOGY REPORT (SQ) ---
EXAM DESCRIPTION: CTA CHEST COMPLETED DATE/TIME: 07/20/2019 5:47 pm REASON FOR STUDY: Shortness of breath/cough COMPARISON: 04/05/2018 TECHNIQUE: CT scan of the chest performed using helical scanning technique with dynamic intravenous contrast injection. Images reviewed with lung, soft tissue and bone windows. Reconstructed coronal and sagittal MPR images reviewed. Additional 3 dimensional post-processing performed to develop Maximal Intensity Projection images (AL P). All images stored on PACS. All CT scanners at this facility use dose modulation, iterative reconstruction, and/or weight based d osing when appropriate to reduce radiation dose to as low as reasonably achievable (ALARA). [facility]: Dose Right [facility]: CareDose [facility]: Dose Right [facility]: Teradose 4D [facility]: myinfoQ CONTRAST TYPE AND DOSE: contrast/concentration: Isovue 350.00 mg/ml; Total Contrast Delivered: 65.0 ml; Total Saline Delivered: 80.0 ml Contrast bolus optimized for the pulmonary arteries. Not diagnostic for the aorta. RENAL FUNCTION: GFR > 60. RADIATION DOSE: CT Rad equipment meets quality standard of care and radiation dose reduction techniq ues were employed. CTDIvol: 7.4 - 34.4 mGy. DLP: 1279 mGy-cm. . LIMITATIONS: None. FINDINGS: LUNGS AND PLEURA: No masses, infiltrates, or pneumothorax. No pleural effusions or pleura l calcifications. AORTA AND GREAT VESSELS: No aneurysm. Contrast bolus not optimized for the aorta. HEART: No pericardial effusion. Mild coronary artery calcifications. PULMONARY ARTERIES: No emboli visualized in the main pulmonary arteries or the segmental branches. HILAR AND MEDIASTINAL STRUCTURES: No identified masses or abnormal nodes. HARDWARE: None in the chest. UPPER ABDOMEN: No significant findings. Limited exam. THYROID AND OTHER SOFT TISSUES: No masses. No adenopathy. BONES: No acute finding. 3D MIPS: Confirm above findings. OTHER: No other significant finding. IMPRESSION: No emboli visualized in the main pulmonary arteries or the segmental branches. No consolidation or pleural effusion. COMMENT: Quality ID # [id number]: Final reports with documentation of one or more dose reduction techniques (e.g., Automated exposure control, adjustment of the mA and/or kV according to patient size, use of iterative reconstruction technique) TECHNICAL DOCUMENTATION: JOB ID: [id number] [place]-72 2010 [employer]- All Rights Reserved Reading location - IP/workstation name: [employer]
[2019-07-20] MEDS ORDERED: GABAPENTIN 100 MG CAPSULE PO ONE (18:27)
[2019-07-20] MEDS ORDERED: KETOROLAC TROMETHAMINE INJ/PF 30 MG/1 ML SDV IV ONE (18:28)
[2019-07-20 19:50] VITALS: BP 146/82
== END 2019-07-20 19:50 | disposition home or self-care (01) ==
LOC: ER 14:16
DX: J06.9 Acute upper respiratory infection, unspecified (principal); J44.9 Chronic obstructive pulmonary disease, unspecified; R05 Cough; Z88.8 Allergy status to other drugs, medicaments and biological substances; Z91.010 Allergy to peanuts
CPT/HCPCS: 36415; 85025; 80053; 87804; 71275; A9270 ×4; J1885; 96374; 99284; J3490

== ENCOUNTER 2019-12-14 11:48 | Emergency (ER) | payer OTHER, MEDICARE ==
[2019-12-14] MEDS ORDERED: PREDNISONE 20 MG TABLET PO ONE (13:26)
[2019-12-14] MEDS ORDERED: IPRATROPIUM/ALBUTEROL 0.5-2.5 MG/3 ML AMPUL NEB ONE ×2 (13:26→16:49)
--- NOTE | 2019-12-14 13:48 | RADIOLOGY REPORT (SQ) ---
EXAM DESCRIPTION: CHEST SINGLE VIEW IMAGES COMPLETED DATE/TIME: 12/14/2019 1:28 pm REASON FOR STUDY: SOB COMPARISON: 06/14/2019 EXAM PARAMETERS: NUMBER OF VIEWS: One view. TECHNIQUE: Single frontal radiographic view of the chest acquired. RADIATION DOSE: NA LIMITATIONS: None. FINDINGS: LUNGS AND PLEURA: No opacities, masses or pneumothorax. No pleural effusion. MEDIASTINUM AND HILAR STRUCTURES: No masses. Contour normal. HEART AND VASCULAR STRUCTURES: Heart normal in size. Normal vasculature. BONES: No acute findings. HARDWARE: None in the chest. OTHER: No other significant finding. IMPRESSION: NO ACUTE RADIOGRAPHIC FINDING IN THE CHEST. TECHNICAL DOCUMENTATION: JOB ID: [id number] 2010 [employer]- All Rights Reserved Reading location - IP/workstation name: [email or web address]
--- NOTE | 2019-12-14 14:00 | ER Document Report ---
Entered by BEBA ELLISON SCRIBE 12/14/19 1325 Acting as scribe for:ROBLES PAGE MD ED Respiratory Problem - General Chief Complaint: Shortness Of Breath Stated Complaint: BREATHING PROBLEM Time Seen by Provider: 12/14/19 13:03 Primary Care Provider: BALTAZAR TALLEY FNP [Primary Care Provider] - Follow up as needed Mode of Arrival: Ambulatory Information source: Patient Notes: This 74 year old male patient presents to the emergency department today with complaints of shortness of breath. Patient states that he had brought his here to be seen for falls and while he was sitting outside the ER in his vehicle he developed shortness of breath. Patient mentions that it was quite hot outside today and he thinks that he could have become overheated. Patient has known COPD but does not take his symbicort daily as prescribed, stating he is "too lazy sometimes". He reports that he feels much better now after being put on oxygen, which he is not usually on. TRAVEL OUTSIDE OF THE [place] IN LAST 30 DAYS: No - Related Data Allergies/Adverse Reactions: diazepam [From Valium] Allergy (Verified 01/05/19 21:36) peanut Allergy (Verified 01/05/19 21:36) Past Medical History - General Information source: Patient - Social History Smoking Status: Former Smoker - quit 50 years ago Cigarette use (# per day): No Frequency of alcohol use: Social Drug Abuse: None Lives with: Family Family History: Reviewed & Not Pertinent - Past Medical History Cardiac Medical History: Reports: Hx Atrial Fibrillation - Post ablation therapy., Hx Congestive Heart Failure - 10 years ago. Pulmonary Medical History: Reports: Hx Bronchitis, Hx Pneumonia, Hx Sleep Apnea Neurological Medical History: Reports: Hx Migraine Malignancy Medical History: Reports Hx Prostate Cancer, Reports Hx Skin Cancer GI Medical History: Reports: Hx Gastritis, Hx Gastroesophageal Reflux Disease, Hx Hiatal Hernia, Hx Irritable Bowel, Hx Ulcer, Hx Endoscopy Musculoskeletal Medical History: Reports Hx Arthritis, Reports Hx Musculoskeletal Deformity, Reports Hx Musculoskeletal Trauma Psychiatric Medical History: Reports: Hx Depression Traumatic Medical History: Reports: Hx Fractures - Nose Past Surgical History: Reports: Hx Adenoidectomy, Hx Cholecystectomy, Hx Genitourinary Surgery - bladder stimulater placement, Hx Nose Surgery, Hx Orthopedic Surgery - Right knee, right and left hip replacement, shoulder surgery, Hx Rectal Surgery - Hemorrhoid surgery, Hx Tonsillectomy, Other - TURP - Immunizations Immunizations up to date: Yes Review of Systems - Review of Systems Constitutional: No symptoms reported EENT: No symptoms reported Cardiovascular: No symptoms reported Respiratory: See HPI, Short of breath Gastrointestinal: No symptoms reported Genitourinary: No symptoms reported Male Genitourinary: No symptoms reported Musculoskeletal: No symptoms reported Skin: No symptoms reported Hematologic/Lymphatic: No symptoms reported Neurological/Psychological: No symptoms reported -: Yes All other systems reviewed and negative Physical Exam - Vital signs Vitals: Temp Pulse Resp BP Pulse Ox 97.9 F 83 28 H 172/56 H 98 12/14/19 11:54 12/14/19 11:54 12/14/19 11:54 12/14/19 11:54 12/14/19 11:54 - Notes Notes: Physical Exam: General: Alert, appears well. HEENT: Normocephalic. Atraumatic. PERRL. Extraocular movements intact. Oropharynx clear. Neck: Supple. Non-tender. Respiratory: No respiratory distress. Barrel chested. Coarse breath sounds bilaterally. Cardiovascular: Regular rate and rhythm. Abdominal: Obese. Non-tender. No distension. Normal Bowel Sounds. Back: No gross abnormalities. Extremities: Moves all four extremities. Upper extremities: Normal inspection. Normal ROM. Lower extremities: Lower extremity edema L>R. Normal ROM. Neurological: Normal cognition. AAOx4. Normal speech. Psychological: Normal affect. Normal Mood. Skin: Warm. Dry. Normal color. Course - Re-evaluation Re-evalutation: 12/14/19 17:55 I went to check back on the patient to give him an update. He seems to be quite anxious and a little more dyspneic than he was earlier. He states that his breathing is not back to baseline, but he is vague about when it became worse suggesting it could have been coming on for a while, but at the same time he was okay until he had been sitting out in his car in the parking lot earlier today. At this time he is concerned about his who was a patient earlier, but has b een discharged home and is sitting outside waiting for him. I had ordered lab work at 1244, the CBC was canceled in the computer at 1430. The record shows the lab work being canceled again at 1655. The nurse tells me that lab had drawn him twice prior to that 1654 drawl but looking at the record I cannot tell that it was done or it was attempted to be run. The 1654 cancellation I think is related to a drawl that 1 of our floating nurses obtained when the lab personnel refused to go and and draw my patient went at the nurses request when they came to draw another patient. Most recently I was told that the patient may have some clotting problem and they needed to draw multiple tubes for EDTA reduction. I have asked for the patient be put on a tubing machine operator, turned his oxygen off to find out what his pulse ox reading really is to determine if he is just anxious or has something else going on. 12/14/19 18:42 I was eventually able to get the patient monitored and the oxygen turned off at the same time. He maintained his oxygen saturation at 96% with a pulse of 93. I do believe he is stable for discharge, will put him on a course of steroids this week to help prevent rebound. - Vital Signs Vital signs: Temp Pulse Resp BP Pulse Ox 98.1 F 83 22 H 139/73 H 94 12/14/19 17:10 12/14/19 11:54 12/14/19 17:10 12/14/19 17:11 12/14/19 17:11 - Laboratory Result Diagrams: 12/14/19 14:30 12/14/19 14:30 Laboratory results interpreted by me: 12/14/19 14:30 AST 82 H ALT 77 H - Diagnostic Test Radiology reviewed: Image reviewed, Reports reviewed - Chest x-ray does not show acute cardiopulmonary process. - EKG Interpretation by Me EKG shows normal: Sinus rhythm, [place], Intervals, QRS Complexes, ST-T Waves Rate: Normal - 74 Rhythm: NSR [place]/QRS: Left axis deviation, IVCD When compared to previous EKG there are: No significant change Discharge - Discharge Clinical Impression: COPD exacerbation Condition: Stable Disposition: HOME, SELF-CARE Additional Instructions: Start taking the prednisone as prescribed tomorrow. You were given today's dose here in the emergency room. You were given your midday dose of Mirapex and gabapentin here in the emergency room. You can take your evening dose tonight before bedtime. Be sure to drink plenty of fluids and get plenty of rest. Return to the emergency room if you have further difficulties with breathing over the weekend. RETURN TO THE EMERGENCY ROOM IF ANY NEW OR WORSENING SYMPTOMS. Prescriptions: Prednisone [Deltasone 10 mg Tablet] 10 mg PO ASDIR PRN #21 tablet PRN Reason: Referrals: BALTAZAR TALLEY FNP [Primary Care Provider] - Follow up as needed I personally performed the services described in the documentation, reviewed and edited the documentation which was dictated to the scribe in my presence, and it accurately records my words and actions.
[2019-12-14 15:14] LABS: ALBUMIN 3.7 g/dL (3.5-5.0); ALKALINE PHOSPHATASE 115 U/L (38-126); ANION GAP 7 (5-19); ASPARTATE AMINO TRANSFERASE 82 U/L (17-59); BILIRUBIN,TOTAL 0.6 mg/dL (0.2-1.3); BLOOD UREA NITROGEN 16 mg/dL (7-20); CALCIUM 9.5 mg/dL (8.4-10.2); CARBON DIOXIDE 24 mmol/L (22-30); CHLORIDE 106 mmol/L (98-107); GLUCOSE 91 mg/dL (75-110); POTASSIUM 3.9 mmol/L (3.6-5.0)
[2019-12-14 15:26] LABS: NT PRO BNP 175 pg/mL (<450)
[2019-12-14 15:32] LABS: TROPONIN I < 0.012 ng/mL
[2019-12-14 17:14] VITALS: BP 139/73
--- NOTE | 2019-12-14 17:28 | EKG REPORT ---
SEVERITY:- ABNORMAL ECG - SINUS RHYTHM NONSPECIFIC IVCD WITH LAD PROBABLE LATERAL INFARCT, OLD : Confirmed by: Josh Johnson MD 14-Dec-2019 17:27:32
[2019-12-14] MEDS ORDERED: PRAMIPEXOLE DI-HCL 0.5 MG TABLET PO ONE (17:48)
[2019-12-14] MEDS ORDERED: GABAPENTIN 100 MG CAPSULE PO ONE (17:49)
[2019-12-14] MEDS ORDERED: GABAPENTIN 300 MG CAPSULE PO ONE (17:49)
== END 2019-12-14 18:55 | disposition home or self-care (01) ==
LOC: ER 11:48
DX: J44.1 Chronic obstructive pulmonary disease with (acute) exacerbation (principal); R06.02 Shortness of breath; W19.XXXA Unspecified fall, initial encounter; Z79.899 Other long term (current) drug therapy; Z87.891 Personal history of nicotine dependence; I48.91 Unspecified atrial fibrillation; I50.9 Heart failure, unspecified
CPT/HCPCS: 93005; 94640 ×2; 99285; 36415; 80053; 84484; 83880; 71045; 93010; J7512; J3490